=== PATIENT | male | born 1970 | race Caucasian/White ===

== ENCOUNTER 2016-12-28 21:40 | Emergency (ER) | payer SELFPAY ==
[2016-12-28] MEDS ORDERED: Lidocaine 2% EPI 1:200000 MPF* 20 ML VIAL ONE (22:04)
[2016-12-28] MEDS ORDERED: Lidocaine 2% EPI 1:200000 MPF* 20 ML VIAL INJ ONE (22:05)
--- NOTE | 2016-12-28 22:10 | ED ---
Head Injury - HPI Summary HPI Summary: 46M presents with laceration to left side of forehead today. He tripped and landed on some rocks. He had positive LOC. He denies any nausea or vomiting. Has moderate headache. He denies any dizziness or change in vision. Did not take anything for pain. He is not on blood thinners. Bleeding is controlled. last tetanus was 3 years ago. - History Of Current Complaint Chief Complaint: EDLacSutureRecheck Stated Complaint: LAC ON FOREHEAD Time Seen by Provider: 12/28/16 21:58 Pain Intensity: 0 - Allergies/Home Medications Allergies/Adverse Reactions: Allergies Allergy/AdvReac Type Severity Reaction Status Date / Time No Known Allergies Allergy Verified 12/28/16 21:45 PMH/Surg Hx/FS Hx/Imm Hx Endocrine/Hematology History: Denies: Hx Anticoagulant Therapy Cardiovascular History: Denies: Hx Pacemaker/ICD - Immunization History Date of Tetanus Vaccine: 2014 Infectious Disease History: No Infectious Disease History: Denies: Traveled Outside the [place] in Last 30 Days - Family History Known Family History: Positive: Cardiac Disease - Social History Alcohol Use: Rare Substance Use Type: Reports: None Smoking Status (MU): Current Every Day Smoker Review of Systems Negative: Fever Negative: Chest Pain Negative: Shortness Of Breath Positive: Other - laceration forehead Positive: Headache All Other Systems Reviewed And Are Negative: Yes Physical Exam Triage Information Reviewed: Yes Vital Signs On Initial Exam: Initial Vitals Temp Pulse Resp BP Pulse Ox 97.4 F 83 16 114/71 98 12/28/16 21:43 12/28/16 21:43 12/28/16 21:43 12/28/16 21:43 12/28/16 21:43 Vital Signs Reviewed: Yes Appearance: Positive: Well-Appearing Skin: Positive: Warm, Dry, Other - 2cm by 1/4cm laceration of left forehead Head/Face: Positive: Normal Head/Face Inspection, Other - no step off, racoon eyes cho sign Eyes: Positive: Normal, EOMI, GILLES, Conjunctiva Clear ENT: Positive: Normal ENT inspection, Pharynx normal, TMs normal Respiratory/Lung Sounds: Positive: Clear to Auscultation, Breath Sounds Present Cardiovascular: Positive: Normal, RRR Neurological: Positive: Sensory/Motor Intact, Alert, Oriented to Person Place, Time, CN Intact II-III - David Coma Scale Best Eye Response: 4 - Spontaneous Best Motor Response: 6 - Obeys Commands Best Verbal Response: 5 - Oriented Procedures - Laceration/Wound Repair 1 Location: face Description: Linear Anesthesia: Local, 1.0%, Epi Length, Depth and Shape: 2cm by 1/4cm Irrigated w/ Saline (ccs): 500 Laceration/Wound Explored: no foreign body removed Closure: Single Layer Suture Type: Prolene - 6-0 Number of Sutures: 3 Layer Closure?: No Sterile Dressing Applied?: No Diagnostics - Vital Signs Vital Signs Temp Pulse Resp BP Pulse Ox 12/28/16 21:43 97.4 F 83 16 114/71 98 - Laboratory Lab Statement: Any lab studies that have been ordered have been reviewed, and results considered in the medical decision making process. - CT brain CT Interpretation: No Acute Changes CT Interpretation Completed By: Radiologist Head Injury Course/Dx Course Of Treatment: 46M presents with laceration to left side of forehead today. He tripped and landed on some rocks. He had positive LOC. He denies any nausea or vomiting. Has moderate headache. He denies any dizziness or change in vision. Did not take anything for pain. He is not on blood thinners. Bleeding is controlled. last tetanus was 3 years ago. cleaned and placed [address] brain normal. told that likely has concussion due to LOC. patient understands and agrees with plan. - Diagnoses Differential Diagnosis/HQI/PQRI: Concussion With LOC, Intracranial Bleed, Laceration Provider Diagnoses: Head injury, Laceration Discharge - Discharge Plan Condition: Good Disposition: HOME Patient Education Materials: Head Injury (ED), Care For Your Stitches (ED) Referrals: [facility] [place] [facility]FERR[facility] [Outside] Additional Instructions: Take Tylenol or ibuprofen for pain Place ice on area Return to ED or urgent care in 5 days to have sutures removed Establish care with primary care physician Modify activities as tolerated with concussion present Return to ED if develop signs of infection such as fever, spreading redness, or pus or if vomit or severe headache or any new or worsening symptoms
[2016-12-28 23:20] VITALS: BP 101/68
--- NOTE | 2016-12-29 07:44 | RAD ---
INDICATION: Intracranial injury COMPARISON: None TECHNIQUE: Noncontrast axial source images were acquired from the skull base to the vertex. FINDINGS: Ventricles/sulci: The ventricles and cisterns are normal in size and configuration for age. Brain parenchyma: There is no focal parenchymal finding, evidence of intracranial mass, or intracranial mass effect. Intracranial hemorrhage:None. Extra-axial spaces: There are no abnormal extra axial fluid collections or evidence of extra-axial mass. Calvarium: There is no calvarial fracture or other calvarial abnormality. Scalp: There is no evidence of scalp or extracalvarial soft tissue abnormality. Paranasal sinuses/mastoid: The paranasal sinuses and mastoid air cells are clear. Other: None. IMPRESSION: NEGATIVE EXAMINATION
== END 2016-12-28 23:20 | disposition home or self-care (01) ==
LOC: ED 21:40
DX: S01.81XA Laceration without foreign body of other part of head, initial encounter (principal); S09.90XA Unspecified injury of head, initial encounter; W22.8XXA Striking against or struck by other objects, initial encounter; Y93.9 Activity, unspecified; Y92.9 Unspecified place or not applicable
CPT/HCPCS: 12011; 70450; 99282

== ENCOUNTER 2017-04-10 09:16 | Emergency (ER) | payer SELFPAY ==
[2017-04-10] MEDS ORDERED: Ibuprofen TAB* 800 MG PO ONE ×2 (12:48→12:50)
--- NOTE | 2017-04-10 12:52 | ED ---
Throat Pain/Nasal Congestion - HPI Summary HPI Summary: 46 male presents to ED with complaints of left lower dental pain and swelling that began last night and worsened this morning. States he has had an abscess in the past. Admits to multiple dental fractures and caries. No other complaints. Denies known fever, vomiting, trouble breathing or trouble swallowing. Does have pain with chewing and eating. Is able to drink fluids. No PMHx. Took excedrin [employer] which gave some relief from pain. - History of Current Complaint Chief Complaint: EDDentalPain Time Seen by Provider: 04/10/17 11:29 Hx Obtained From: Patient Onset/Duration: Sudden Onset, Lasting Hours, Still Present, Worse Since Severity: Moderate Cough: None - Allergies/Home Medications Allergies/Adverse Reactions: Allergies Allergy/AdvReac Type Severity Reaction Status Date / Time No Known Allergies Allergy Verified 04/10/17 09:25 PMH/Surg Hx/FS Hx/Imm Hx Endocrine/Hematology History: Denies: Hx Anticoagulant Therapy Cardiovascular History: Denies: Hx Pacemaker/ICD - Immunization History Date of Tetanus Vaccine: 2014 Immunizations Up to Date: Yes Infectious Disease History: Yes Infectious Disease History: Denies: Traveled Outside the [place] in Last 30 Days - Family History Known Family History: Positive: Cardiac Disease - Social History Alcohol Use: Rare Substance Use Type: Reports: None Smoking Status (MU): Current Every Day Smoker Review of Systems Constitutional: Negative Positive: Dental Pain - with swelling, left cheek Cardiovascular: Negative Respiratory: Negative Gastrointestinal: Negative Skin: Negative Neurological: Negative All Other Systems Reviewed And Are Negative: Yes Physical Exam Triage Information Reviewed: Yes Vital Signs On Initial Exam: Initial Vitals Temp Pulse Resp BP Pulse Ox 99.4 F 106 16 163/91 97 04/10/17 09:25 04/10/17 09:25 04/10/17 09:25 04/10/17 09:25 04/10/17 09:25 elevated BP noted, patient uncomfortable, encouraged follow up with PCP within 2 weeks. asymptomatic. tachycardia and low grade fever noted. given ibuprofen. Vital Signs Reviewed: Yes Appearance: Positive: Well-Appearing, Well-Nourished, Pain Distress - mild Skin: Positive: Warm, Skin Color Reflects Adequate Perfusion, Dry. Negative: Cold, Numb, Pale, Erythema @ Head/Face: Positive: Normal Head/Face Inspection - other than noted edema of left cheek as described below Eyes: Positive: Conjunctiva Clear ENT: Positive: Hearing grossly normal, Pharynx normal, Trismus - slight due to pain and swelling of left lower tooth/jaw, Uvula midline - no sign of peritonsillar abscess, airway patent, Other - edema of left cheek noted when compared to right, pain with palpation of left mandible, slightly firm area and possible deep abscess palpated, no fluctuance or erythema.. Negative: Pharyngeal erythema, Nasal congestion, Nasal drainage, Tonsillar swelling, Tonsillar exudate Dental: Positive: Gross Decay/Caries @, Dental Fracture @, Abscess @ - left mandible. Negative: Percussion Tenderness @, Cellulitis @, Cervical Lymphadenopathy Neck: Positive: Supple, Nontender, No Lymphadenopathy Respiratory/Lung Sounds: Positive: Clear to Auscultation, Breath Sounds Present. Negative: Rales, Rhonchi, Wheezes Cardiovascular: Positive: Normal, RRR, Pulses are Symmetrical in both Upper and Lower Extremities. Negative: Murmur, Rub Musculoskeletal: Positive: Normal, Strength/ROM Intact Neurological: Positive: Normal, Sensory/Motor Intact, Alert, Oriented to Person Place, Time Diagnostics - Vital Signs Vital Signs Temp Pulse Resp BP Pulse Ox 04/10/17 11:17 100.4 F 116 17 160/115 97 04/10/17 09:25 99.4 F 106 16 163/91 97 - Laboratory Lab Statement: Any lab studies that have been ordered have been reviewed, and results considered in the medical decision making process. EENT Course/Dx - Course Course Of Treatment: appears to be suffering from dental abscess. will treat with amoxicillin and pain management. encouraged cool compresses and ibuprofen for swelling. increase fluids. aware of worsening signs and symptoms to watch out for. follow up with dentist within 1 week. salt water swishes. return if any new or worsening symptoms. no superficial palpable abscess or cellulitis appreciated requiring further management at this time. topical OTC medications also suggested. no other concerns or etiology at this time. patient stable slight tachycarida, low grade fever 99-100F, and elevated BP noted. follow up pcp for BP. given ibuprofen while in ED for fever. encouraged importance of starting antibiotics immediately and finishing entire dose. - Differential Diagnoses Differential Diagnoses: Dental Abscess, Dental Caries, Fractured Tooth - Diagnoses Provider Diagnoses: Toothache, Dental abscess Discharge - Discharge Plan Condition: Stable Disposition: HOME Prescriptions: Amoxicillin PO (*) [Amoxicillin 875 MG (*)] 875 mg PO BID #20 tab HYDROcodone/ACETAMIN 5-325 MG* [[place] 5-325 TAB*] 1 tab PO Q6H PRN #6 tab MDD 2 PRN Reason: Pain Ibuprofen TAB* [Motrin TAB* 600 MG] 600 mg PO Q6H PRN #30 tab PRN Reason: Pain Patient Education Materials: Dental Abscess (ED), Toothache (ED) Referrals: No Primary Care Phys,NOPCP [Primary Care Provider] - [facility] [place] [facility] [Outside] Additional Instructions: Take prescribed medication as directed for fever and pain. Antibiotic to fight infection. Do not skip a dose and take until entire dose is completed. Salt water swishes. Good oral hygiene. Increase fluid intake. Follow up with dentist this week. Follow up with PCP to recheck symptoms and blood pressure re-evaluated as it was high today, within 2 weeks. Any new or worsening signs/symptoms please seek medical attention promptly and return to ED, as discussed.
[2017-04-10 13:04] VITALS: BP 156/110
--- NOTE | 2017-04-11 15:50 | UC ---
- Progress Note Progress Note: Pt called requesting urgent Rx labs transferred to [facility] with urgent RX I cancelled hydrocodone at [facility] and resent to [facility] Other rx transferred Course/Dx - Course Course Of Treatment: appears to be suffering from dental abscess. will treat with amoxicillin and pain management. encouraged cool compresses and ibuprofen for swelling. increase fluids. aware of worsening signs and symptoms to watch out for. follow up with dentist within 1 week. salt water swishes. return if any new or worsening symptoms. no superficial palpable abscess or cellulitis appreciated requiring further management at this time. topical OTC medications also suggested. no other concerns or etiology at this time. patient stable slight tachycarida, low grade fever 99-100F, and elevated BP noted. follow up pcp for BP. given ibuprofen while in ED for fever. encouraged importance of starting antibiotics immediately and finishing entire dose. - Diagnoses Provider Diagnoses: Toothache, Dental abscess
== END 2017-04-10 12:57 | disposition home or self-care (01) ==
LOC: ED 09:16
DX: K04.7 Periapical abscess without sinus (principal); F17.200 Nicotine dependence, unspecified, uncomplicated
CPT/HCPCS: 99281; A9270-GY

== ENCOUNTER 2018-04-07 11:44 | Inpatient (IN) | payer MEDICAID ==
[2018-04-07 12:58] LABS: Hematocrit 40 % (42-52); Hemoglobin 13.4 g/dl (14.0-18.0); Mean Corpuscular HGB Conc 34 g/dl (31-36); Mean Corpuscular Hemoglobin 31 pg (27-31); Mean Corpuscular Volume 91 fL (80-94); Mean Platelet Volume 8.5 fL (7.4-10.4); Platelet Count 323 10^3/ul (150-450); Red Blood Count 4.41 10^6/ul (4.00-5.40); Red Cell Distribution Width 14 % (10.5-15); White Blood Count 14.8 10^3/ul (3.5-10.8)
--- NOTE | 2018-04-07 13:09 | ED ---
Abdominal Pain/Male - HPI Summary HPI Summary: A 47 y/o M presents to ED with c/o suprapubic abd pain described as cramping and sharp onset 8-9 days ago. Pain severity 10. Associated sx: mild dysuria, dehydration, subjective fever, chills. Denies: urinary retention. Last BM was this AM. No PMHx, prev facial surgery. Smoker: less than 1ppd. ETOH. Recreation drugs: marijuana. He does not use home O2. Pt has been out of town for a . - History of Current Complaint Chief Complaint: EDAbdPain Stated Complaint: ABD PAIN Time Seen by Provider: 04/07/18 13:02 Hx Obtained From: Patient Onset/Duration: Lasting Days, Still Present Timing: Constant Severity Initially: Moderate Severity Currently: Severe Pain Intensity: 9 Pain Scale Used: 0-10 Numeric Location: Suprapubic Character: Sharp, Cramping Alleviating Factor(s): Other: - warm water Associated Signs And Symptoms: Positive: Fever, Urinary Symptoms - dysuria, Other - pos: chills, dehydration - Allergies/Home Medications Allergies/Adverse Reactions: Allergies Allergy/AdvReac Type Severity Reaction Status Date / Time No Known Allergies Allergy Verified 04/07/18 11:48 Home Medications: Home Medications Omeprazole CAP* [Prilosec CAP* 20 MG] 20 mg PO SEE INSTRUCTIONS PRN 04/07/18 [ History Confirmed 04/07/18] PMH/Surg Hx/FS Hx/Imm Hx Previously Healthy: Yes Endocrine/Hematology History: Denies: Hx Anticoagulant Therapy Cardiovascular History: Denies: Hx Pacemaker/ICD Sensory History: Denies: Hx Legally Blind, Hx Deafness Neurological History: Denies: Hx Dementia - Immunization History Date of Tetanus Vaccine: 2014 Infectious Disease History: No Infectious Disease History: Denies: Traveled Outside the [place] in Last 30 Days - Family History Known Family History: Positive: Cardiac Disease - Social History Occupation: Unemployed Lives: With Family Alcohol Use: Daily Hx Substance Use: Yes Substance Use Type: Reports: Marijuana Hx Tobacco Use: Yes Smoking Status (MU): Light Every Day Tobacco Smoker Review of Systems Positive: Fever - subjective, Chills, Other - pos: dehydration Positive: Abdominal Pain Positive: dysuria All Other Systems Reviewed And Are Negative: Yes Physical Exam - Summary Physical Exam Summary: GENERAL: Patient is a well-developed and nourished M who is lying comfortable in the stretcher. Patient is not in any acute respiratory distress. HEAD AND FACE: Normocephalic EYES: PERRLA, EOMI x 2. EARS: Hearing grossly intact. MOUTH: Oropharynx within normal limits. NECK: Supple, trachea is midline, no adenopathy, no JVD, no carotid bruit. CHEST: Symmetric, no tenderness at palpation LUNGS: Wheezes. CVS: Regular rate and rhythm, S1 and S2 present, no murmurs or gallops appreciated. ABDOMEN: Soft. Voluntary guarding in suprapubic area. Bowel sounds are normal. No abdominal abnormal pulsations. EXTREMITIES: Full ROM in all major joints, no edema, no cyanosis or clubbing. NEURO: Alert and oriented x 3. No acute neurological deficits. Speech is normal and follows commands. SKIN: Dry and warm Triage Information Reviewed: Yes Vital Signs On Initial Exam: Initial Vitals Temp Pulse Resp BP Pulse Ox 98.2 F 100 18 139/102 97 04/07/18 11:48 04/07/18 11:48 04/07/18 11:48 04/07/18 11:48 04/07/18 11:48 Vital Signs Reviewed: Yes Diagnostics - Vital Signs Vital Signs Temp Pulse Resp BP Pulse Ox 04/07/18 11:48 98.2 F 100 18 139/102 97 - Laboratory Lab Results: Lab Results 04/07/18 Range/Units 12:32 WBC 14.8 H (3.5-10.8) 10^3/ul RBC 4.41 (4.00-5.40) 10^6/ul Hgb 13.4 L (14.0-18.0) g/dl Hct 40 L (42-52) % MCV 91 (80-94) fL MCH 31 (27-31) pg MCHC 34 (31-36) g/dl RDW 14 (10.5-15) % Plt Count 323 (150-450) 10^3/ul MPV 8.5 (7.4-10.4) fL Neut % (Auto) Pending Lymph % (Auto) Pending [place] % (Auto) Pending Eos % (Auto) Pending Baso % (Auto) Pending Absolute Neuts (auto) Pending Absolute Lymphs (auto) Pending Absolute Monos (auto) Pending Absolute Eos (auto) Pending Absolute Basos (auto) Pending Absolute Nucleated RBC Pending Nucleated RBC % Pending Result Diagrams: 04/07/18 12:32 04/07/18 12:32 Lab Statement: Any lab studies that have been ordered have been reviewed, and results considered in the medical decision making process. - CT Abdomen/pelvis CT Interpretation Completed By: Radiologist Summary of CT Findings: CT findings are consistent with a right of midline peritoneal abscess as described above. There is wall thickening of the terminal ileum and the sigmoid colon. The appendix is not. discretely identified and the expected location of the appendix is deranged by. inflammatory change and abscess formation. Differential diagnosis includes appendiceal. abscess with adjacent inflammatory change of the terminal ileum and sigmoid colon. An. alternative diagnosis is inflammatory bowel disease ( e.g. Crohn's disease) with abscess. formation exhibiting "skip lesions". ED provider has reviewed this imaging report. Abdominal Pain Fem Course/Dx - Course Course Of Treatment: Pt is a 47 y/o M presenting with suprapubic abd pain described as cramping and sharp onset 8-9 days ago; and mild dysuria. Workup is remarkable. Abdomen/pelvis CT impression: CT findings are consistent with a right of midline peritoneal abscess as described above. There is wall thickening of the terminal ileum and the sigmoid colon. The appendix is not. discretely identified and the expected location of the appendix is deranged by. inflammatory change and abscess formation. Differential diagnosis includes appendiceal. abscess with adjacent inflammatory change of the terminal ileum and sigmoid colon. An. alternative diagnosis is inflammatory bowel disease ( e.g. Crohn's disease) with abscess. formation exhibiting "skip lesions". Lab results obtained. High WBC of 14.8. In the ED course the patient was given Toradol, Zofran and sodium chloride IV. After discussing the case with Dr. Clarke, surgery, she saw the patient in the ED and recommends admission to medicine. The patient will be admitted. Dx: peritoneal abscess. Case discussed with hospitalist. I discussed results with patient. The patient agrees with this plan. - Diagnoses Provider Diagnoses: Peritoneal abscess - Provider Notifications Discussed Care Of Patient With: Maricel Clarke Time Discussed With Above Provider: 17:15 Instructed by Provider To: MD Will See In ED - At 18:05, after seeing the patient in the ED, Dr. Clarke reccomends admission to medicine. Discharge - Sign-Out/Discharge Documenting (check all that apply): Patient Departure - Admit - Discharge Plan Condition: Stable Disposition: ADMITTED TO [facility] Referrals: No Primary Care Phys,NOPCP [Primary Care Provider] - - Billing Disposition and Condition Condition: STABLE Disposition: Admitted to [facility] - Attestation Statements Document Initiated by Scribe: Yes Documenting Scribe: Nicky Avendaño Provider For Whom Scribe is Documenting (Include Credential): Dr. En Lockett MD Scribe Attestation: INicky, scribed for Dr. En Lockett MD on 04/07/18 at 1916. Scribe Documentation Reviewed: Yes Provider Attestation: The documentation as recorded by the Nicky fleming accurately reflects the service I personally performed and the decisions made by me, Dr. En Lockett MD Status of Scribe Document: Viewed Consult Consult: At 18:15, Case discussed with Dr. Christensen, hospitalist, who will accept the patient for admission.
[2018-04-07 13:15] LABS: Albumin 3.5 g/dL (3.2-5.2); C Reactive Protein 203.95 mg/L (<8.01); Calcium 9.4 mg/dL (8.6-10.3); EGFR Non-African American 104.2 (>60); Globulin 3.6 g/dL (2-4); Total Bilirubin 0.7 mg/dL (0.2-1.0); Total Protein 7.1 g/dL (6.4-8.9)
[2018-04-07] MEDS ORDERED: Ondansetron INJ* 2 MG/ML VIAL IV ONE (13:16)
[2018-04-07] MEDS ORDERED: Ketorolac INJ* 30 MG/ML 1 ML VIAL IV PUSH ONE (13:16)
[2018-04-07] MEDS ORDERED: NS 0.9% 1000 ML* 1,000 ML IV ONE (13:16)
[2018-04-07 13:37] LABS: ABS Basophils 0.1 10^3/ul (0-0.2); ABS Eosinophils 0.1 10^3/ul (0-0.6); ABS Monocytes 1.7 10^3/ul (0-0.8); ABS Neutrophils 11.9 10^3/ul (1.5-7.7); ABS Nucleated RBC 0 10^3/ul; Eosinophil % 0.8 %; Lymphocyte % 6.7 %; Nucleated Red Blood Cells % 0
[2018-04-07] MEDS ORDERED: Iohexol 300* (CONTRAST) 10 ML SDV IV ONE (14:36)
[2018-04-07] MEDS ORDERED: Ciprofloxacin 400MG IVPREMIX(* 400 MG/200 ML BAG IVPB ONE (17:12)
[2018-04-07] MEDS ORDERED: metroNIDAZOLE IV 500 MG/100ML* 500 MG/100 ML BAG IVPB ONE (17:13)
[2018-04-07] MEDS ORDERED: Ondansetron INJ* 2 MG/ML VIAL IV PRN (20:03)
[2018-04-07] MEDS ORDERED: Mouth Piece, Nicotine* 1 EACH CARTRIDGE INH PRN (20:09)
[2018-04-07] MEDS ORDERED: Nicotine PATCH 21 MG/24 HR* PATCH TRANSDERM SCH (21:00)
[2018-04-07] MEDS: Morphine VIAL* 4 MG/ML VIAL (1 ml vial) IV PRN (21:38)
[2018-04-07] MEDS: NS 0.9% 1000 ML* 1,000 ML IV SCH (21:40)
--- NOTE | 2018-04-07 22:06 | HP ---
HOSPITAL MEDICINE HISTORY AND PHYSICAL: DATE OF ADMISSION: 04/07/18 PRIMARY CARE PHYSICIAN: None. ATTENDING PHYSICIAN: Dr. Samantha Menjivar* (dictation provided by Angely Martinez NP) . CHIEF COMPLAINT: Abdominal pain. HISTORY OF PRESENT ILLNESS: Mr. Milton is a 47-year-old male with no known past medical history who presents today to the hospital with concern for lower abdominal pain. Mr. Milton states that his pain began 8 days ago. It is in his lower abdomen. He states that it is worse with eating and that every time he eats anything, he is doubled over in pain. He reports that it is a little worse with urination. He was concerned that perhaps he had a urinary tract infection and therefore has been taking cranberry and an [id number] analgesic for UTI. Despite this, he did not improve and therefore, he decided to come to the emergency room for evaluation. He has had shakes at times, but no fever as he did not check his temperature. He reports liquid bowel movements earlier in the week, but now he has had some formed bowel movements. He is continuing to pass gas. He reports passing urine, but that it is very dark and cloudy. He has never had a colonoscopy before. He denies any other complaints including chest pain or shortness of breath. He has had no vomiting. In the emergency room, Mr. Milton had a CT of the abdomen, which showed a midline peritoneal abscess that was 4.7 x 8.5 cm. It is associated with thickening of the terminal ileum and the sigmoid colon. For this reason, Surgery was called regarding consultation. They have indicated that no surgery is indicated at this point and that likely plan will be for antibiotics and CT- guided drainage placement. PAST MEDICAL HISTORY: None. MEDICATIONS: None. ALLERGIES: None. FAMILY HISTORY: The patient reports that all the male members of his family have cancer. His father had lung cancer. He knows that some members have had throat cancer. All the female members of his family have reportedly had diabetes. SOCIAL HISTORY: The patient smokes about 5 packs of cigarettes per week. He drinks vodka on a daily basis. He reports he has never had any withdrawal symptoms when not drinking. He denies any drug use. He is not able to name a healthcare proxy. REVIEW OF SYSTEMS: A 14-point review of systems was completed with Mr. Miltno and all those not mentioned above were negative. PHYSICAL EXAMINATION GENERAL: Mr. Milton is sitting on the bed. He is in no acute distress. VITAL SIGNS: Temperature 98.2, pulse rate 92, respiratory rate 18, O2 saturation 97% on room air, blood pressure 145/100. LUNGS: Clear to auscultation bilaterally with no accessory muscle use and good aeration. HEART: S1, S2. No murmur, rub, or gallop and regular. ABDOMEN: Soft. There is tenderness in the low to mid right quadrant. Bowel sounds are positive. There is no rebound or guarding. EXTREMITIES: No cyanosis or edema. NEURO: He is alert. He is oriented x3. He moves all extremities equally. There is no facial asymmetry or focal weakness. Extraocular movements are intact. SKIN: Intact. LABORATORY DATA/DIAGNOSTIC STUDIES: Sodium 132, potassium 4.0, chloride 93, serum bicarbonate 29, BUN 15, creatinine 0.79, glucose 109. CRP is 203.95. WBC 14.8, hemoglobin 13.4, hematocrit 40, platelet count 323. The abdomen and pelvis CT is read as follows: "CT findings are consistent with a right midline peritoneal abscess as described above. There is wall thickening of the terminal ileum and the sigmoid colon. The appendix is not discretely identified and the expected location of the appendix is deranged by inflammatory change and abscess formation. Differential diagnosis includes appendiceal abscess with adjacent inflammatory change of the terminal ileum and sigmoid colon. An alternative diagnosis is inflammatory bowel disease, e.g., Crohn's disease with abscess formation exhibiting "skip lesions." ASSESSMENT AND PLAN: Mr. Milton is a 47-year-old male with no known past medical history, who is a smoker and drinks alcohol on a daily basis, who presents today to the hospital with concern for lower abdominal pain found to have an abdominal abscess of unclear etiology. Our plans are for inpatient admission with expected length of stay to be greater than 2 days for the followin. Abdominal abscess. Appreciate the consultation from Dr. Clarke from [facility]. She indicates that no surgical intervention is indicated at this time and that she would recommend IR to place a drain via CT or ultrasound guided assist. In the meantime, the patient will have Cipro and Flagyl and we will adjust antibiotics appropriately based on culture results. I have also sent for cytology from the fluid as well. The patient just meets sepsis criteria today with a heart rate of 100 and leukocytosis. Blood cultures have been ordered. His lactic acid is normal. 2. Nicotine use. The patient will have nicotine replacement available p.r.n. and smoking cessation counseling was provided. 3. Alcohol use. The patient reports daily drinking, but never having any symptoms of alcohol withdrawal. We will monitor him closely and if he does develop symptoms, we can consider adding on a WAM protocol. 4. Code status is full code. 5. DVT prophylaxis with early mobility. 6. Disposition to the surgical floor. TIME SPENT: Approximately 60 minutes were spent on the admission of this patient, more than half of the time was spent with the patient at the bedside reviewing the events leading up to this hospitalization, performing the physical examination, and reviewing my plan of care. ANGELY MARTINEZ NP [id number]/CPS #: [id number] APRIL
--- NOTE | 2018-04-07 22:39 | CONS ---
CONSULTATION HISTORY AND PHYSICAL: DATE OF CONSULTATION: 04/07/18 SERVICE: General Surgery. ATTENDING SURGEON: Maricel Clarke MD REASON FOR CONSULTATION: Intraabdominal abscess on CT scan. HISTORY OF PRESENT ILLNESS: Mr. Milton is a 47-year-old gentleman with history of smoking, who presented to the emergency room with complaints of 8 days of suprapubic abdominal pain. The patient said that he was in his normal state of health until approximately 8 days ago when he said that he started to have this strange suprapubic pain and some dysuria. He thought this was from a urinary tract infection so he tried to medicate himself with xyvk-nwz-[id number] medications as well as cranberry juice, however, the pain persisted. He was able to maintain a normal appetite. He had no nausea, vomiting at this time, however, about 2 to 3 days into the pain, he started developing abdominal pain after eating. He also said that he had significant amount of diarrhea during this time. In only the past couple of days, has his stool become a little bit more normal and hard. He says that the pain eventually became long enough in duration that he presented to the emergency room for evaluation. He denied having any fevers or chills. He has no other complaints. He has no history of Crohn's disease, ulcerative colitis in his family. No history of colon cancer in the family and he has never had a colonoscopy. He denies having any blood in his stools. PAST MEDICAL HISTORY: None. PAST SURGICAL HISTORY: He has had facial plastic surgery, and no abdominal surgery. MEDICATIONS: None. ALLERGIES: No known drug allergies. FAMILY HISTORY: Father recently of lung cancer. SOCIAL HISTORY: The patient is a current everyday smoker. He drinks alcohol on a regular basis, but has not had anything recently since the abdominal started. He is not working. He lives with a friend. REVIEW OF SYSTEMS: Review of systems negative except for abdominal pain and diarrhea. PHYSICAL EXAMINATION: Vital Signs: Temperature is 98.2, pulse is 85, respiratory rate is 18, O2 sat is 96% on room air, blood pressure is 141/97. HEENT: Normocephalic, atraumatic. Respiratory: Clear to auscultation bilaterally. Cardiovascular: Regular rate and rhythm. Abdomen: Soft, tender in the suprapubic area and tender in the right lower quadrant with some rebound in the right lower quadrant. Extremities: No edema. LABORATORY VALUES: White blood cell count is 14.8, hemoglobin is 13.4, hematocrit is 40, platelets are 323. Sodium is 132, potassium is 4, chloride is 93, BUN 15, creatinine is 0.79, glucose is 109. Lactic acid is 0.7, alkaline phosphatase is 152, CRP is 203. IMAGING: CT abdomen and pelvis on 04/07/18 shows wall thickening of the terminal ileum leading into the base of the cecum, measuring 7 mm in thickness. There is thickening of the wall at the base of the cecum. There is infiltration of the peritoneal fat surrounding the base of the cecum. The appendix was diffusely identified. More distally, the ascending, transverse, and descending colon were grossly normal. The sigmoid colon was incompletely evaluated as oral contrast did not progress that far. There appears to be a segment of wall thickening of the sigmoid colon measuring up to 11 mm in thickness. Situated to the right midline peritoneal cavity between the base of the cecum and the sigmoid is a multilobe fluid density collection with wall enhancement consistent with an abscess. In axial plane, the largest portion of the abscess measures 4.7 x 8.5 cm and the abscess measures 5.5 cm in the greatest cephalad-caudal dimension. There is a small fluid collection extending toward the midline more inferiorly behind, between the sigmoid colon and the urinary bladder measuring up to 2.9 cm. There is no gross retroperitoneal or mesenteric lymphadenopathy. The CT scan findings are consistent with right of midline peritoneal abscess. As described above, there is wall thickening of the terminal ileum and sigmoid colon. Appendix is not clearly identified and the expected location of the appendix was deranged by inflammatory changes and abscess formation. Differential diagnosis includes appendiceal abscess with adjacent inflammatory changes of terminal ileum and sigmoid colon. Alternative diagnosis is inflammatory bowel disease, i.e. Crohn' s disease with abscess formation. ASSESSMENT AND PLAN: Mr. Milton is a 47-year-old gentleman with a history of abdominal pain for 8 days. He denies having nausea or vomiting. He found to have white blood cell count of 14.9, elevated CRP and the CT scan significant for intraabdominal abscess of unclear origin. The differential could include a perforated appendicitis, however, such a large abscess is fairly unusual for perforated appendicitis. Given the findings of significant inflammation and thickening of the terminal ileum as well as sigmoid colon, this also may represent a perforated Crohn's disease or perforated diverticulitis. The patient is currently comfortable. He is afebrile. His pain is fairly minimal. He does require admission, IV antibiotics and CT or ultrasound guided drainage of the intraabdominal abscess. A work up will need to be done to ascertain the etiology of this perforation and this will require a GI consultation and further workup with the colonoscopy and possibly repeat imaging after drainage of the abscesses is resolved. I have discussed this case with the emergency room physician and recommended that the patient be admitted to the hospitalist team for the IV antibiotics, drainage of the abscess to be performed by Radiology as well as a gastroenterology workup. We will continue to follow the patient. A total of 45 minutes was spent in coordination of care of this patient, including speaking to consultants, reviewing patient records and discussion with patient. [id number]/CPS #: [id number] APRIL
[2018-04-07] MEDS: Nicotine Inhaler* 10 MG AMP INH PRN (22:53)
[2018-04-07] MEDS: Nicotine Patch Removal NOTE FOLLOW UP SCH (23:09)
[2018-04-08] MEDS: metroNIDAZOLE IV 500 MG/100ML* 500 MG/100 ML BAG IVPB SCH ×4 (01:26→21:56)
[2018-04-08] MEDS: Morphine VIAL* 4 MG/ML VIAL (1 ml vial) IV PRN ×5 (02:54→23:42)
[2018-04-08 04:38] LABS: ABS Basophils 0.1 10^3/ul (0-0.2); ABS Eosinophils 0.1 10^3/ul (0-0.6); ABS Monocytes 1.3 10^3/ul (0-0.8); ABS Neutrophils 10.7 10^3/ul (1.5-7.7); ABS Nucleated RBC 0 10^3/ul; Eosinophil % 1.1 %; Hematocrit 37 % (42-52); Hemoglobin 12.3 g/dl (14.0-18.0); Lymphocyte % 7.7 %; Mean Corpuscular HGB Conc 33 g/dl (31-36); Mean Corpuscular Hemoglobin 30 pg (27-31); Mean Corpuscular Volume 91 fL (80-94); Mean Platelet Volume 8.2 fL (7.4-10.4); Nucleated Red Blood Cells % 0; Platelet Count 316 10^3/ul (150-450); Red Cell Distribution Width 15 % (10.5-15); White Blood Count 13.2 10^3/ul (3.5-10.8)
[2018-04-08 04:43] LABS: INR 1.37 (0.77-1.02)
[2018-04-08] MEDS: Acetaminophen TAB* 325 MG PO PRN ×3 (08:21→23:41)
[2018-04-08] MEDS: Nicotine PATCH 21 MG/24 HR* PATCH TRANSDERM SCH (08:22)
[2018-04-08] MEDS: Nicotine Inhaler* 10 MG AMP INH PRN ×2 (08:22→22:01)
[2018-04-08] MEDS: Ciprofloxacin 400MG IVPREMIX(* 400 MG/200 ML BAG IVPB SCH ×2 (08:28→19:55)
--- NOTE | 2018-04-08 09:33 | PN ---
Progress Note - Progress Note Date of Service: 04/08/18 Note: Surgery Progress Note S: Patient feels better today with pain medications. No new complaints. Had a fever last night. Objective: Vital Signs: Temp Pulse Resp BP Pulse Ox 97.9 F 93 18 122/81 96 04/08/18 07:30 04/08/18 07:30 04/08/18 08:21 04/08/18 07:30 04/08/18 07:30 Vital Signs: Temp Pulse Resp BP Pulse Ox 97.9 F 93 18 122/81 96 04/08/18 07:30 04/08/18 07:30 04/08/18 08:21 04/08/18 07:30 04/08/18 07:30 Laboratory Last Values WBC 13.2 10^3/ul (3.5-10.8) H 04/08/18 04:31 RBC 4.10 10^6/ul (4.00-5.40) 04/08/18 04:31 Hgb 12.3 g/dl (14.0-18.0) L 04/08/18 04:31 Hct 37 % (42-52) L 04/08/18 04:31 MCV 91 fL (80-94) 04/08/18 04:31 MCH 30 pg (27-31) 04/08/18 04:31 MCHC 33 g/dl (31-36) 04/08/18 04:31 RDW 15 % (10.5-15) 04/08/18 04:31 Plt Count 316 10^3/ul (150-450) 04/08/18 04:31 MPV 8.2 fL (7.4-10.4) 04/08/18 04:31 Neut % (Auto) 81.2 % 04/08/18 04:31 Lymph % (Auto) 7.7 % 04/08/18 04:31 [place] % (Auto) 9.6 % 04/08/18 04:31 Eos % (Auto) 1.1 % 04/08/18 04:31 Baso % (Auto) 0.4 % 04/08/18 04:31 Absolute Neuts (auto) 10.7 10^3/ul (1.5-7.7) H 04/08/18 04:31 Absolute Lymphs (auto) 1.0 10^3/ul (1.0-4.8) 04/08/18 04:31 Absolute Monos (auto) 1.3 10^3/ul (0-0.8) H 04/08/18 04:31 Absolute Eos (auto) 0.1 10^3/ul (0-0.6) 04/08/18 04:31 Absolute Basos (auto) 0.1 10^3/ul (0-0.2) 04/08/18 04:31 Absolute Nucleated RBC 0 10^3/ul 04/08/18 04:31 Nucleated RBC % 0 04/08/18 04:31 INR (Anticoag Therapy) 1.37 (0.77-1.02) H 04/08/18 04:31 Sodium 132 mmol/L (135-145) L 04/07/18 12:32 Potassium 4.0 mmol/L (3.5-5.0) 04/07/18 12:32 Chloride 93 mmol/L (101-111) L 04/07/18 12:32 Carbon Dioxide 29 mmol/L (22-32) 04/07/18 12:32 Anion Gap 10 mmol/L (2-11) 04/07/18 12:32 BUN 15 mg/dL (6-24) 04/07/18 12:32 Creatinine 0.79 mg/dL (0.67-1.17) 04/07/18 12:32 Est GFR ( Amer) 126.1 (>60) 04/07/18 12:32 Est GFR (Non-Af Amer) 104.2 (>60) 04/07/18 12:32 BUN/Creatinine Ratio 19.0 (8-20) 04/07/18 12:32 Glucose 109 mg/dL (70-100) H 04/07/18 12:32 Lactic Acid 0.7 mmol/L (0.5-2.0) 04/07/18 12:32 Calcium 9.4 mg/dL (8.6-10.3) 04/07/18 12:32 Total Bilirubin 0.70 mg/dL (0.2-1.0) 04/07/18 12:32 AST 20 U/L (13-39) 04/07/18 12:32 ALT 20 U/L (7-52) 04/07/18 12:32 Alkaline Phosphatase 152 U/L (34-104) H 04/07/18 12:32 C-Reactive Protein 203.95 mg/L (<8.01) H 04/07/18 12:32 Total Protein 7.1 g/dL (6.4-8.9) 04/07/18 12:32 Albumin 3.5 g/dL (3.2-5.2) 04/07/18 12:32 Globulin 3.6 g/dL (2-4) 04/07/18 12:32 Albumin/Globulin Ratio 1.0 (1-3) 04/07/18 12:32 Lipase 13 U/L (11.0-82.0) 04/07/18 12:32 Intake & Output 04/07/18 04/08/18 04/08/18 22:59 06:59 14:59 Intake Total 1300 0 Output Total 400 400 200 Balance 900 -400 -200 Weight 130 lb 130 lb Intake: IV Fluids 1000 IVPB 300 Oral 0 Output: Urine 400 400 200 Other: # Bowel Movements 0 Abx: cipro/flagyl Physical exam: abd distended mildly, non tender A/P: 47 M with intraabdominal abscess, unclear etiology. - Continue IV abx - CT guided drainage of intraabdominal abscess today with radiology. FU cultures - Recommend GI consultation
[2018-04-08] MEDS ORDERED: fentaNYL* 50 MCG/ML 2 ML VIAL (100 MCG VIAL) ONE (10:54)
[2018-04-08] MEDS: NS 0.9% 1000 ML* 1,000 ML IV SCH (16:17)
--- NOTE | 2018-04-08 17:41 | PN ---
Subjective Date of Service: 04/08/18 Interval History: I saw Mr. Milton after he returned to short stay from . He has a drain in his RLQ and is feeling "sore" but otherwise okay. No fevers, nausea, diarrhea, vomiting, constipation. He is interested to understand why this happened to him. Objective Active Medications: Acetaminophen (Tylenol Tab*) 650 mg PO Q6H PRN PRN Reason: PAIN Last Admin: 04/08/18 15:52 Dose: 650 mg Device (Nicotine Mouth Piece*) 1 each INH Q2H PRN PRN Reason: CRAVINGS Last Admin: 04/07/18 22:53 Dose: 1 each Ciprofloxacin/Dextrose (Cipro 400 Mg Ivpremix(*)) 400 mg in 200 mls @ 200 mls/ hr IVPB Q12H [facility] Last Admin: 04/08/18 08:28 Dose: 200 mls/hr Metronidazole/Sodium Chloride (Flagyl 500 Mg Ivpb*) 500 mg in 100 mls @ 100 mls /hr IVPB Q8H [facility] Last Admin: 04/08/18 12:23 Dose: 100 mls/hr Sodium Chloride (Ns 0.9% 1000 Ml*) 1,000 mls @ 75 mls/hr IV PER RATE [facility] Last Admin: 04/08/18 16:17 Dose: 75 mls/hr Morphine Sulfate (Morphine Vial*) 5 mg IV Q3H PRN PRN Reason: PAIN Last Admin: 04/08/18 15:53 Dose: 5 mg Nicotine (Nicotine Inhaler*) 10 mg INH Q2H PRN PRN Reason: CRAVING Last Admin: 04/08/18 08:22 Dose: 10 mg Nicotine (Nicotine Patch 21 Mg/24 Hr*) 1 patch TRANSDERM 0900 [facility] Last Admin: 04/08/18 08:22 Dose: Not Given Ondansetron HCl (Zofran Inj*) 4 mg IV Q6H PRN PRN Reason: NAUSEA Pharmacy Profile Note (Nicotine Patch Removal Note*) 1 note FOLLOW UP 2100 [facility] Last Admin: 04/07/18 23:09 Dose: Not Given Vital Signs - 8 hr 04/08/18 04/08/18 15:43 15:53 Temperature 99.2 F Pulse Rate 94 Respiratory 18 18 Rate Blood Pressure 132/80 (mmHg) O2 Sat by Pulse 96 Oximetry Oxygen Devices in Use Now: None Appearance: alert, nontoxic well appearing Eyes: No Scleral Icterus Ears/Nose/Mouth/Throat: NL Teeth, Lips, Gums Neck: NL Appearance and Movements; NL JVP Respiratory: Symmetrical Chest Expansion and Respiratory Effort Cardiovascular: NL Sounds; No Murmurs; No JVD, RRR Abdominal: - - drain in RLQ draining serosanguinous fluid Lymphatic: No Cervical Adenopathy Extremities: No Edema Skin: No Rash or Ulcers Neurological: Alert and Oriented x 3 Result Diagrams: 04/08/18 04:31 04/07/18 12:32 Additional Lab and Data: Lab Results 04/07/18 Range/Units 12:32 WBC 14.8 H (3.5-10.8) 10^3/ul RBC 4.41 (4.00-5.40) 10^6/ul Hgb 13.4 L (14.0-18.0) g/dl Hct 40 L (42-52) % MCV 91 (80-94) fL MCH 31 (27-31) pg MCHC 34 (31-36) g/dl RDW 14 (10.5-15) % Plt Count 323 (150-450) 10^3/ul MPV 8.5 (7.4-10.4) fL Neut % (Auto) Pending Lymph % (Auto) Pending [place] % (Auto) Pending Eos % (Auto) Pending Baso % (Auto) Pending Absolute Neuts (auto) Pending Absolute Lymphs (auto) Pending Absolute Monos (auto) Pending Absolute Eos (auto) Pending Absolute Basos (auto) Pending Absolute Nucleated RBC Pending Nucleated RBC % Pending Microbiology and Other Data: Microbiology 04/08/18 11:30 Gram Stain - Final Misc Fluid (See Comment) - Abscess Skin and Soft Tissue MRSA/MSSA (PCR - Final Mrsa Negative S.aureus Negative Assess/Plan/Problems-Billing Assessment: This is a 47 year old man with no medical history who presented with 8-9 days of worsening abdominal pain and was found to have an intraabdominal abscess - Patient Problems (1) Intra-abdominal abscess Current Visit: Yes Status: Acute Code(s): K65.1 - PERITONEAL ABSCESS SNOMED Code(s): 75826327 Comment: s/p drain today ; cultures pending etiology unclear and surgery recommends consulting GI will discuss case with them and ID
[2018-04-08] MEDS: Nicotine Patch Removal NOTE FOLLOW UP SCH (21:57)
[2018-04-09] MEDS: Morphine VIAL* 4 MG/ML VIAL (1 ml vial) IV PRN (05:21)
[2018-04-09] MEDS: metroNIDAZOLE IV 500 MG/100ML* 500 MG/100 ML BAG IVPB SCH ×3 (05:22→21:01)
[2018-04-09 06:04] LABS: ABS Basophils 0.1 10^3/ul (0-0.2); ABS Eosinophils 0.1 10^3/ul (0-0.6); ABS Lymphocytes 1.3 10^3/ul (1.0-4.8); ABS Monocytes 0.9 10^3/ul (0-0.8); ABS Neutrophils 7.5 10^3/ul (1.5-7.7); ABS Nucleated RBC 0 10^3/ul; Eosinophil % 1.5 %; Hematocrit 35 % (42-52); Hemoglobin 11.9 g/dl (14.0-18.0); Lymphocyte % 13.2 %; Mean Corpuscular HGB Conc 34 g/dl (31-36); Mean Corpuscular Hemoglobin 31 pg (27-31); Mean Corpuscular Volume 91 fL (80-94); Mean Platelet Volume 8.5 fL (7.4-10.4); Nucleated Red Blood Cells % 0; Platelet Count 342 10^3/ul (150-450); Red Blood Count 3.86 10^6/ul (4.00-5.40); Red Cell Distribution Width 15 % (10.5-15)
[2018-04-09 06:13] LABS: INR 1.48 (0.77-1.02)
[2018-04-09 06:22] LABS: BUN/Creatinine Ratio 12.7 (8-20); C Reactive Protein 202.8 mg/L (<8.01); Calcium 8.6 mg/dL (8.6-10.3); EGFR Non-African American 135.4 (>60); Potassium 3.6 mmol/L (3.5-5.0)
[2018-04-09] MEDS: Ciprofloxacin 400MG IVPREMIX(* 400 MG/200 ML BAG IVPB SCH ×2 (07:35→19:11)
[2018-04-09] MEDS: Nicotine PATCH 21 MG/24 HR* PATCH TRANSDERM SCH (07:36)
[2018-04-09] MEDS: NS 0.9% 1000 ML* 1,000 ML IV SCH ×2 (07:39→23:08)
--- NOTE | 2018-04-09 08:27 | PN ---
Subjective Date of Service: 04/09/18 Interval History: Afebrile overnight. Still sore at the drain site but otherwise feeling okay. Drinking a cup of coffee. Objective Active Medications: Acetaminophen (Tylenol Tab*) 650 mg PO Q6H PRN PRN Reason: PAIN Last Admin: 04/08/18 23:41 Dose: 650 mg Device (Nicotine Mouth Piece*) 1 each INH Q2H PRN PRN Reason: CRAVINGS Last Admin: 04/07/18 22:53 Dose: 1 each Ciprofloxacin/Dextrose (Cipro 400 Mg Ivpremix(*)) 400 mg in 200 mls @ 200 mls/ hr IVPB Q12H [facility] Last Admin: 04/09/18 07:35 Dose: 200 mls/hr Sodium Chloride (Ns 0.9% 1000 Ml*) 1,000 mls @ 75 mls/hr IV PER RATE [facility] Last Admin: 04/09/18 07:39 Dose: 75 mls/hr Metronidazole/Sodium Chloride (Flagyl 500 Mg Ivpb*) 500 mg in 100 mls @ 100 mls /hr IVPB 0500,1300,2100 [facility] Last Admin: 04/09/18 05:22 Dose: 100 mls/hr Morphine Sulfate (Morphine Vial*) 5 mg IV Q3H PRN PRN Reason: PAIN Last Admin: 04/09/18 05:21 Dose: 5 mg Nicotine (Nicotine Inhaler*) 10 mg INH Q2H PRN PRN Reason: CRAVING Last Admin: 04/08/18 22:01 Dose: 10 mg Nicotine (Nicotine Patch 21 Mg/24 Hr*) 1 patch TRANSDERM 0900 [facility] Last Admin: 04/09/18 07:36 Dose: Not Given Ondansetron HCl (Zofran Inj*) 4 mg IV Q6H PRN PRN Reason: NAUSEA Pharmacy Profile Note (Nicotine Patch Removal Note*) 1 note FOLLOW UP 2100 [facility] Last Admin: 04/08/18 21:57 Dose: Not Given Vital Signs - 8 hr 04/09/18 04/09/18 04/09/18 02:30 03:13 05:21 Temperature 98.4 F Pulse Rate 76 Respiratory 18 16 20 Rate Blood Pressure 134/89 (mmHg) O2 Sat by Pulse 96 Oximetry 04/09/18 04/09/18 06:50 07:16 Temperature 98.1 F Pulse Rate 77 Respiratory 18 18 Rate Blood Pressure 146/94 (mmHg) O2 Sat by Pulse 94 Oximetry Oxygen Devices in Use Now: None Appearance: alert, walking around room, well appearing Eyes: No Scleral Icterus Ears/Nose/Mouth/Throat: NL Teeth, Lips, Gums Neck: NL Appearance and Movements; NL JVP Respiratory: Symmetrical Chest Expansion and Respiratory Effort, Clear to Auscultation Cardiovascular: NL Sounds; No Murmurs; No JVD, RRR Abdominal: - - RLQ drain draining creamy reddish fluid, tender to deep palpation RLQ no guarding Lymphatic: No Cervical Adenopathy Extremities: No Edema Skin: No Rash or Ulcers Neurological: Alert and Oriented x 3 Result Diagrams: 04/09/18 05:32 04/09/18 05:32 Additional Lab and Data: Lab Results 04/07/18 Range/Units 12:32 WBC 14.8 H (3.5-10.8) 10^3/ul RBC 4.41 (4.00-5.40) 10^6/ul Hgb 13.4 L (14.0-18.0) g/dl Hct 40 L (42-52) % MCV 91 (80-94) fL MCH 31 (27-31) pg MCHC 34 (31-36) g/dl RDW 14 (10.5-15) % Plt Count 323 (150-450) 10^3/ul MPV 8.5 (7.4-10.4) fL Neut % (Auto) Pending Lymph % (Auto) Pending [place] % (Auto) Pending Eos % (Auto) Pending Baso % (Auto) Pending Absolute Neuts (auto) Pending Absolute Lymphs (auto) Pending Absolute Monos (auto) Pending Absolute Eos (auto) Pending Absolute Basos (auto) Pending Absolute Nucleated RBC Pending Nucleated RBC % Pending Microbiology and Other Data: Microbiology 04/08/18 11:30 Gram Stain - Final Misc Fluid (See Comment) - Abscess Skin and Soft Tissue MRSA/MSSA (PCR - Final Mrsa Negative S.aureus Negative Assess/Plan/Problems-Billing Assessment: This is a 47 year old man with no medical history who presented with 8-9 days of worsening abdominal pain and was found to have an intraabdominal abscess - Patient Problems (1) Intra-abdominal abscess Current Visit: Yes Status: Acute Code(s): K65.1 - PERITONEAL ABSCESS SNOMED Code(s): 40303801 Comment: s/p drain yesterday with IR ; cultures pending suspect microperforaction from diverticulitis but will need repeat imaging (2) Nicotine dependence Current Visit: Yes Status: Acute Code(s): F17.200 - NICOTINE DEPENDENCE, UNSPECIFIED, UNCOMPLICATED SNOMED Code(s): 66436791 Comment: no withdrawal symptoms on nicotine inhalers (3) Coagulopathy Current Visit: Yes Status: Acute Comment: no prior INRs for comparison; INR rising while other inflammatory/infectious markers are improving. may lag and will need to follow.
[2018-04-09] MEDS ORDERED: oxyCODONE/Acetamin 5/325 MG* TAB ONE (10:01)
[2018-04-09] MEDS: oxyCODONE/Acetamin 5/325 MG* TAB PO PRN ×4 (10:03→23:10)
--- NOTE | 2018-04-09 10:04 | PN ---
Progress Note - Progress Note Date of Service: 04/09/18 SOAP: Subjective: C/o R side abd pain better with pain meds. Only getting morphine and tylenol. Eating fine without N/V. +flatus. Objective: Vital Signs Temp 98.1 F 04/09/18 07:16 Pulse 77 04/09/18 07:16 Resp 18 04/09/18 07:16 BP 146/94 04/09/18 07:16 Pulse Ox 94 04/09/18 07:16 Gen: sitting in chair; mild distress. Abd: drain intact with sanguinopurulent o/p; soft with mild tenderness in R abd. No LLQ tenderness. Intake & Output 04/08/18 04/09/18 04/09/18 18:59 06:59 18:59 Intake Total 1659 510 Output Total 480 1550 Balance 1179 -1040 Intake: IV Fluids 719 ABX - CIPROFLOXACIN 324 ABX - FLAGYL 110 NS 285 IVPB 0 ABX - FLAGYL 0 Oral 940 510 Output: Pigtail Drain 80 50 Urine 400 1500 Other: Estimated Void Medium Medium # Bowel Movements 0 Estimated Stool Amount Medium # Voids 2 1 Laboratory Results - last 24 hr 04/09/18 04/09/18 04/09/18 05:32 05:32 05:32 WBC 10.0 RBC 3.86 L Hgb 11.9 L Hct 35 L MCV 91 MCH 31 MCHC 34 RDW 15 Plt Count 342 MPV 8.5 Neut % (Auto) 75.1 Lymph % (Auto) 13.2 [place] % (Auto) 9.4 Eos % (Auto) 1.5 Baso % (Auto) 0.8 Absolute Neuts (auto) 7.5 Absolute Lymphs (auto) 1.3 Absolute Monos (auto) 0.9 H Absolute Eos (auto) 0.1 Absolute Basos (auto) 0.1 Absolute Nucleated RBC 0 Nucleated RBC % 0 INR (Anticoag Therapy) 1.48 H Sodium 136 Potassium 3.6 Chloride 101 Carbon Dioxide 26 Anion Gap 9 BUN 8 Creatinine 0.63 L Est GFR ( Amer) 163.8 Est GFR (Non-Af Amer) 135.4 BUN/Creatinine Ratio 12.7 Glucose 106 H Calcium 8.6 C-Reactive Protein 202.80 H Assessment: 47 M with intraabdominal abscess, possible missed appendicitis. Improving with IV abx and drain. Plan: Cont drain and abx. Cont diet. f/u CT probably next week. Non-urgent GI consult.
[2018-04-09] MEDS: Nicotine Inhaler* 10 MG AMP INH PRN ×2 (15:15→20:46)
[2018-04-09] MEDS: Nicotine Patch Removal NOTE FOLLOW UP SCH (20:49)
[2018-04-10] MEDS: metroNIDAZOLE IV 500 MG/100ML* 500 MG/100 ML BAG IVPB SCH ×3 (04:59→21:29)
[2018-04-10] MEDS: oxyCODONE/Acetamin 5/325 MG* TAB PO PRN ×5 (05:00→22:52)
[2018-04-10 05:39] LABS: ABS Basophils 0 10^3/ul (0-0.2); ABS Eosinophils 0.3 10^3/ul (0-0.6); ABS Lymphocytes 1.6 10^3/ul (1.0-4.8); ABS Monocytes 0.9 10^3/ul (0-0.8); ABS Neutrophils 6.2 10^3/ul (1.5-7.7); ABS Nucleated RBC 0 10^3/ul; Eosinophil % 3.1 %; Hematocrit 36 % (42-52); Hemoglobin 12.2 g/dl (14.0-18.0); Lymphocyte % 17.9 %; Mean Corpuscular HGB Conc 34 g/dl (31-36); Mean Corpuscular Hemoglobin 31 pg (27-31); Mean Corpuscular Volume 92 fL (80-94); Mean Platelet Volume 8.6 fL (7.4-10.4); Nucleated Red Blood Cells % 0.1; Platelet Count 432 10^3/ul (150-450); Red Blood Count 3.97 10^6/ul (4.00-5.40); Red Cell Distribution Width 14 % (10.5-15)
[2018-04-10 05:43] LABS: INR 1.33 (0.77-1.02)
[2018-04-10 05:58] LABS: BUN/Creatinine Ratio 12.2 (8-20); Calcium 8.7 mg/dL (8.6-10.3); EGFR Non-African American 112.4 (>60); Potassium 4.2 mmol/L (3.5-5.0)
[2018-04-10] MEDS: Ciprofloxacin 400MG IVPREMIX(* 400 MG/200 ML BAG IVPB SCH ×2 (08:51→18:58)
[2018-04-10] MEDS: Nicotine PATCH 21 MG/24 HR* PATCH TRANSDERM SCH (08:51)
--- NOTE | 2018-04-10 12:07 | PN ---
Progress Note - Progress Note Date of Service: 04/10/18 Note: Surgery Progress Note S: Patient is doing well. Tolerating diet, no nausea or emesis. Minimal abdominal pain. Passing flatus and small BM. Ambulating without difficulty, remains afebrile. Objective: Vital Signs: Temp Pulse Resp BP Pulse Ox 97.8 F 70 16 147/86 100 04/10/18 07:29 04/10/18 07:29 04/10/18 09:00 04/10/18 07:29 04/10/18 07:29 Vital Signs: Temp Pulse Resp BP Pulse Ox 97.8 F 70 16 147/86 100 04/10/18 07:29 04/10/18 07:29 04/10/18 09:00 04/10/18 07:29 04/10/18 07:29 Laboratory Last Values WBC 9.0 10^3/ul (3.5-10.8) 04/10/18 05:00 RBC 3.97 10^6/ul (4.00-5.40) L 04/10/18 05:00 Hgb 12.2 g/dl (14.0-18.0) L 04/10/18 05:00 Hct 36 % (42-52) L 04/10/18 05:00 MCV 92 fL (80-94) 04/10/18 05:00 MCH 31 pg (27-31) 04/10/18 05:00 MCHC 34 g/dl (31-36) 04/10/18 05:00 RDW 14 % (10.5-15) 04/10/18 05:00 Plt Count 432 10^3/ul (150-450) 04/10/18 05:00 MPV 8.6 fL (7.4-10.4) 04/10/18 05:00 Neut % (Auto) 69.0 % 04/10/18 05:00 Lymph % (Auto) 17.9 % 04/10/18 05:00 Glades % (Auto) 9.7 % 04/10/18 05:00 Eos % (Auto) 3.1 % 04/10/18 05:00 Baso % (Auto) 0.3 % 04/10/18 05:00 Absolute Neuts (auto) 6.2 10^3/ul (1.5-7.7) 04/10/18 05:00 Absolute Lymphs (auto) 1.6 10^3/ul (1.0-4.8) 04/10/18 05:00 Absolute Monos (auto) 0.9 10^3/ul (0-0.8) H 04/10/18 05:00 Absolute Eos (auto) 0.3 10^3/ul (0-0.6) 04/10/18 05:00 Absolute Basos (auto) 0 10^3/ul (0-0.2) 04/10/18 05:00 Absolute Nucleated RBC 0 10^3/ul 04/10/18 05:00 Nucleated RBC % 0.1 04/10/18 05:00 INR (Anticoag Therapy) 1.33 (0.77-1.02) H 04/10/18 05:00 Sodium 137 mmol/L (135-145) 04/10/18 05:00 Potassium 4.2 mmol/L (3.5-5.0) 04/10/18 05:00 Chloride 104 mmol/L (101-111) 04/10/18 05:00 Carbon Dioxide 28 mmol/L (22-32) 04/10/18 05:00 Anion Gap 5 mmol/L (2-11) 04/10/18 05:00 BUN 9 mg/dL (6-24) 04/10/18 05:00 Creatinine 0.74 mg/dL (0.67-1.17) 04/10/18 05:00 Est GFR ( Amer) 136.0 (>60) 04/10/18 05:00 Est GFR (Non-Af Amer) 112.4 (>60) 04/10/18 05:00 BUN/Creatinine Ratio 12.2 (8-20) 04/10/18 05:00 Glucose 114 mg/dL (70-100) H 04/10/18 05:00 Lactic Acid 0.7 mmol/L (0.5-2.0) 04/07/18 12:32 Calcium 8.7 mg/dL (8.6-10.3) 04/10/18 05:00 Total Bilirubin 0.70 mg/dL (0.2-1.0) 04/07/18 12:32 AST 20 U/L (13-39) 04/07/18 12:32 ALT 20 U/L (7-52) 04/07/18 12:32 Alkaline Phosphatase 152 U/L (34-104) H 04/07/18 12:32 C-Reactive Protein 202.80 mg/L (<8.01) H 04/09/18 05:32 Total Protein 7.1 g/dL (6.4-8.9) 04/07/18 12:32 Albumin 3.5 g/dL (3.2-5.2) 04/07/18 12:32 Globulin 3.6 g/dL (2-4) 04/07/18 12:32 Albumin/Globulin Ratio 1.0 (1-3) 04/07/18 12:32 Lipase 13 U/L (11.0-82.0) 04/07/18 12:32 Intake & Output 04/09/18 04/10/18 04/10/18 22:59 06:59 14:59 Intake Total 810 1648 Output Total 720 805 400 Balance 90 843 -400 Intake: IV Fluids 1148 ABX - CIPROFLOXACIN 200 ABX - FLAGYL 104 NS 844 Oral 810 480 Pigtail Drain 20 Output: Pigtail Drain 20 5 Urine 700 800 400 Abx: cipro/flagyl Drain output x 24 hour: 130cc Micro: alpha strep, anaerobic gram negative bacillus Physical exam: abdomen soft, minimally tender in the suprapubic region A/P: 47M with intraabdominal abscess, unclear etiology, s/p percutaneous drainage on 04/08, doing well-- remains afebrile, WBC normal, pain minimal. - Recommend GI consult for further evaluation of etiology of abscess, likely will need outpatient colonoscopy - Recommend ID consult for jail abx recommendations, recommendations on reimaging? Currently awaiting sensitivities from abscess culture - Patient likely should have repeat imaging when drain output declines to assess for resolution vs. undrained abscess that may be amenable to repeat percutaneous drainage - Continue regular diet, OOB and ambulate, abx
[2018-04-10] MEDS: Nicotine Inhaler* 10 MG AMP INH PRN ×2 (13:18→19:13)
--- NOTE | 2018-04-10 15:40 | PN ---
Subjective Date of Service: 04/10/18 Interval History: Pain much better, now seems to be due only to the catheter. @ small BM's today so far. Appetite good. No new c/o. Using NRT. Objective Active Medications: Acetaminophen (Tylenol Tab*) 650 mg PO Q6H PRN PRN Reason: PAIN Last Admin: 04/08/18 23:41 Dose: 650 mg Device (Nicotine Mouth Piece*) 1 each INH Q2H PRN PRN Reason: CRAVINGS Last Admin: 04/07/18 22:53 Dose: 1 each Ciprofloxacin/Dextrose (Cipro 400 Mg Ivpremix(*)) 400 mg in 200 mls @ 200 mls/ hr IVPB Q12H [facility] Last Admin: 04/10/18 08:51 Dose: 200 mls/hr Sodium Chloride (Ns 0.9% 1000 Ml*) 1,000 mls @ 75 mls/hr IV PER RATE [facility] Last Admin: 04/09/18 23:08 Dose: 75 mls/hr Metronidazole/Sodium Chloride (Flagyl 500 Mg Ivpb*) 500 mg in 100 mls @ 100 mls /hr IVPB 0500,1300,2100 [facility] Last Admin: 04/10/18 13:13 Dose: 100 mls/hr Morphine Sulfate (Morphine Vial*) 5 mg IV Q3H PRN PRN Reason: PAIN Last Admin: 04/09/18 05:21 Dose: 5 mg Nicotine (Nicotine Inhaler*) 10 mg INH Q2H PRN PRN Reason: CRAVING Last Admin: 04/10/18 13:18 Dose: 10 mg Nicotine (Nicotine Patch 21 Mg/24 Hr*) 1 patch TRANSDERM 0900 [facility] Last Admin: 04/10/18 08:51 Dose: Not Given Ondansetron HCl (Zofran Inj*) 4 mg IV Q6H PRN PRN Reason: NAUSEA Oxycodone/Acetaminophen (Percocet 5/325 Tab*) 1 tab PO Q3H PRN PRN Reason: PAIN - MODERATE Last Admin: 04/10/18 13:13 Dose: 1 tab Pharmacy Profile Note (Nicotine Patch Removal Note*) 1 note FOLLOW UP 2100 [facility] Last Admin: 04/09/18 20:49 Dose: Not Given Vital Signs - 8 hr 04/10/18 04/10/18 04/10/18 07:29 08:45 09:00 Temperature 97.8 F Pulse Rate 70 Respiratory 16 16 16 Rate Blood Pressure 147/86 (mmHg) O2 Sat by Pulse 100 Oximetry 04/10/18 13:13 Temperature Pulse Rate Respiratory 16 Rate Blood Pressure (mmHg) O2 Sat by Pulse Oximetry Oxygen Devices in Use Now: None Appearance: Alert, in a chair. In good spirits. Looks comfortable. Eyes: No Scleral Icterus Result Diagrams: 04/10/18 05:00 04/10/18 05:00 Additional Lab and Data: Lab Results 04/07/18 Range/Units 12:32 WBC 14.8 H (3.5-10.8) 10^3/ul RBC 4.41 (4.00-5.40) 10^6/ul Hgb 13.4 L (14.0-18.0) g/dl Hct 40 L (42-52) % MCV 91 (80-94) fL MCH 31 (27-31) pg MCHC 34 (31-36) g/dl RDW 14 (10.5-15) % Plt Count 323 (150-450) 10^3/ul MPV 8.5 (7.4-10.4) fL Neut % (Auto) Pending Lymph % (Auto) Pending [place] % (Auto) Pending Eos % (Auto) Pending Baso % (Auto) Pending Absolute Neuts (auto) Pending Absolute Lymphs (auto) Pending Absolute Monos (auto) Pending Absolute Eos (auto) Pending Absolute Basos (auto) Pending Absolute Nucleated RBC Pending Nucleated RBC % Pending Microbiology and Other Data: Microbiology 04/08/18 11:30 Gram Stain - Final Misc Fluid (See Comment) - Abscess Skin and Soft Tissue MRSA/MSSA (PCR - Final Mrsa Negative S.aureus Negative Assess/Plan/Problems-Billing Assessment: This is a 47 year old man with no medical history who presented with 8-9 days of worsening abdominal pain and was found to have an intraabdominal abscess - Patient Problems (1) Intra-abdominal abscess Current Visit: Yes Status: Acute Code(s): K65.1 - PERITONEAL ABSCESS SNOMED Code(s): 77481438 Comment: s/p drain 04/08/19 with IR. cultures growing strep, B. fragilis. Dr. Kwon to consult. Continue cipro/metro. (2) Tobacco abuse Current Visit: Yes Status: Acute Code(s): Z72.0 - TOBACCO USE SNOMED Code( s): 624796660 Comment: Pt advised to quit smoking and avoid second hand smoke.
--- NOTE | 2018-04-10 19:21 | CONS ---
GASTROENTEROLOGY CONSULT REPORT: DATE OF CONSULT: 04/10/18 REQUESTING CONSULT: Dr. العراقي. REASON FOR CONSULT: Intra-abdominal abscess. HISTORY OF PRESENT ILLNESS: Mr. Milton is a 47-year-old gentleman without significant past medical history, who is admitted with 1 to 2 weeks of abdominal pain. Imaging demonstrates intra-abdominal abscess of unclear etiology. Mr. Milton states that he was in his usual state of health until approximately 03/29/18. At that point, he developed severe suprapubic pain. This pain continued until he presented to the ER for evaluation on 04/07/18. He also describes mild diarrhea at times. He had several episodes of severe chills, although he did not take his temperature. He denies any nausea, vomiting, or pain elsewhere in his abdomen. He thought that perhaps he was having a bladder infection, so he took a bladder medicine [id number] without any improvement. He has never had any similar type pain. On admission, he was noted to have a leukocytosis. CT scan demonstrated a right of midline peritoneal abscess. Note was also made of wall thickening of the terminal ileum and sigmoid colon. Appendix was not well seen on imaging. Etiology of abscess not entirely clear, although it has been suspected that the abscess may represent complications of appendicitis. The patient underwent IR placed drain in the abscess. The culture from the fluid is growing Strep anginosus and Bacteroides fragilis. He is on antibiotics at present. Pain is markedly improved compared to admission. On interview, Mr. Milton states that he has no history of GI symptoms. He denies any episodes of abdominal pain in the past. He denies any nausea or vomiting in the past. He has normal bowel movements. He has never seen any blood in his stool. He has not yet had a colonoscopy as he is 47. PAST MEDICAL HISTORY: No significant past medical history per the patient. PAST SURGICAL HISTORY: None. MEDICATIONS: None. ALLERGIES: No known drug allergies. FAMILY HISTORY: Father with lung cancer, maternal uncle with colon cancer, maternal grandfather with colon cancer, diabetes in family. Age at which family members developed colon cancer is unknown. SOCIAL HISTORY: The patient smokes cigarettes. He was smoking a pack a day, but over the past month he has cut down. He uses marijuana daily. He has a history of heavy alcohol use, but he denies any current or recent alcohol use. REVIEW OF SYSTEMS: Fourteen-point review of systems is negative except as above. PHYSICAL EXAM: Vital Signs: Afebrile, heart rate 70, blood pressure 147/86, 100% on room air. General: Pleasant, well-appearing gentleman, in no acute distress. HEENT: Mucous membranes moist. Cardiovascular: Regular rate and rhythm. No murmurs, rubs, or gallops. Pulmonary: Lungs clear to auscultation. No wheezes. Abdomen: Soft, nondistended. Mildly tender in suprapubic area and in right lower quadrant around site of drain. Very small amount of cloudy fluid in bag connected to intra-abdominal drain. Extremities: No edema. Skin: No rashes or jaundice. DIAGNOSTIC STUDIES/LAB DATA: Laboratories: Labs reviewed. White count on admission elevated to 14.8, but is currently 9. Hemoglobin 13.4 on admission, now 12.2. Platelet count is normal. INR mildly elevated in the 1.3 to 1.4 range. Sodium was low at 132 on admission and is now normal at 137. Creatinine is normal, lactic acid has been normal, AST and ALT normal, alk phos mildly elevated to 152, bilirubin normal at 0.7. CRP elevated to 203.9 on admission. Imaging: CT abdomen and pelvis summarized in HPI. Again, the patient noted to have right of midline peritoneal abscess. There is also wall thickening in terminal ileum and possibly sigmoid colon. Appendix not discretely seen. The suspicion is that the appendix is in the area of the inflammatory change and abscess and may be the source. Crohn's disease with skip lesions also suggested as a possibility in the radiology report. IMPRESSION AND RECOMMENDATIONS: Mr. Milton is a 47-year-old gentleman without significant past medical history, who is admitted with 1 to 2 weeks of suprapubic abdominal pain. Labs notable for leukocytosis and elevated CRP. Imaging notable for an intra-abdominal abscess. While the source of the abscess is not clear, it is quite possible that this represents an appendiceal abscess. GI consulted given concern for possible Crohn's as there is also some inflammation in the terminal ileum and possibly sigmoid colon. Mr. Milton denies any GI symptoms prior to the episode of acute pain making undiagnosed Crohn's less likely. The inflammation in these areas may be secondary to an appendiceal (or less likely diverticular) abscess. I have a lower suspicion that the patient has undiagnosed Crohn's disease; however, I do think it is important that he undergo a colonoscopy after the acute episode has resolved to evaluate further. Discussed with the patient that I would like to see him in clinic within the next few weeks. I will tentatively plan on doing a colonoscopy in next 6 to 8 weeks after we have ensured that the abscess has resolved. He will continue with the antibiotics and will be undergoing a repeat CT scan at some point in the near future under the guidance of Surgery. Thank you very much for this interesting consult. GI will remain available. I will arrange for the outpatient followup to be scheduled. [id number]/CPS #: [id number] MTDD
[2018-04-10] MEDS: Nicotine Patch Removal NOTE FOLLOW UP SCH (21:36)
[2018-04-11] MEDS: oxyCODONE/Acetamin 5/325 MG* TAB PO PRN ×5 (03:17→21:21)
[2018-04-11] MEDS: metroNIDAZOLE IV 500 MG/100ML* 500 MG/100 ML BAG IVPB SCH ×3 (04:56→21:22)
[2018-04-11] MEDS: Nicotine Inhaler* 10 MG AMP INH PRN ×4 (07:23→21:21)
[2018-04-11] MEDS: Ciprofloxacin 400MG IVPREMIX(* 400 MG/200 ML BAG IVPB SCH (07:24)
[2018-04-11] MEDS: Nicotine PATCH 21 MG/24 HR* PATCH TRANSDERM SCH (07:27)
--- NOTE | 2018-04-11 09:07 | PN ---
Progress Note - Progress Note Date of Service: 04/11/18 Note: Surgery Progress Note S: Patient doing well, no new complaints. Still ambulating, tolerating diet, afebrile. Has abdominal pain when he gets in and out of bed. Objective: Vital Signs: Temp Pulse Resp BP Pulse Ox 97.6 F 65 16 142/92 99 04/11/18 08:04 04/11/18 08:04 04/11/18 08:04 04/11/18 08:04 04/11/18 08:04 Labs: No new labs Intake & Output 04/10/18 04/11/18 04/11/18 22:59 06:59 14:59 Intake Total 120 660 210 Output Total 700 725 Balance -580 -65 210 Intake: IV Fluids 210 ABX - CIPROFLOXACIN 210 IVPB 300 ABX - CIPROFLOXACIN 200 ABX - FLAGYL 100 Oral 120 360 Output: Pigtail Drain 25 Urine 700 700 Other: # Bowel Movements 1 Estimated Stool Amount Medium # Voids 1 Drain output: x 24 hour- ~65cc Abx: Cipro/flagyl Physical exam: abd mildly distended, tender in suprapubic area, drain with seropurulent fluid A/P: 47 M with intraabdominal abscess, sp percutaneous drainage, improving. - Appreciate GI recommendations, will follow up as an outpatient with colonoscopy - Recommend ID consultation for adjunct faculty for medical terminology abx recs when culture sensitivities return - Repeat CT abd/pelvis with PO/IV contrast when drain output declines
[2018-04-11] MEDS: Acetaminophen TAB* 325 MG PO PRN (09:39)
[2018-04-11] MEDS: cefTRIAXone(*) 1 GM in NS 0.9% 50 ML* 50 ML IVPB SCH (11:27)
--- NOTE | 2018-04-11 13:03 | PN ---
Subjective Date of Service: 04/11/18 Interval History: No pain, n bowel c/o, good appetite. No new c/o. Objective Active Medications: Acetaminophen (Tylenol Tab*) 650 mg PO Q6H PRN PRN Reason: PAIN Last Admin: 04/11/18 09:39 Dose: 650 mg Device (Nicotine Mouth Piece*) 1 each INH Q2H PRN PRN Reason: CRAVINGS Last Admin: 04/07/18 22:53 Dose: 1 each Metronidazole/Sodium Chloride (Flagyl 500 Mg Ivpb*) 500 mg in 100 mls @ 100 mls /hr IVPB 0500,1300,2100 [facility] Last Admin: 04/11/18 12:54 Dose: 100 mls/hr Ceftriaxone Sodium 1 gm/ (Sodium Chloride) 50 mls @ 200 mls/hr IVPB Q24H [facility] Last Admin: 04/11/18 11:27 Dose: 200 mls/hr Morphine Sulfate (Morphine Vial*) 5 mg IV Q3H PRN PRN Reason: PAIN Last Admin: 04/09/18 05:21 Dose: 5 mg Nicotine (Nicotine Inhaler*) 10 mg INH Q2H PRN PRN Reason: CRAVING Last Admin: 04/11/18 07:23 Dose: 10 mg Nicotine (Nicotine Patch 21 Mg/24 Hr*) 1 patch TRANSDERM 0900 [facility] Last Admin: 04/11/18 07:27 Dose: Not Given Ondansetron HCl (Zofran Inj*) 4 mg IV Q6H PRN PRN Reason: NAUSEA Oxycodone/Acetaminophen (Percocet 5/325 Tab*) 1 tab PO Q3H PRN PRN Reason: PAIN - MODERATE Last Admin: 04/11/18 07:24 Dose: 1 tab Pharmacy Profile Note (Nicotine Patch Removal Note*) 1 note FOLLOW UP 2100 [facility] Last Admin: 04/10/18 21:36 Dose: Not Given Vital Signs - 8 hr 04/11/18 04/11/18 04/11/18 05:43 07:24 08:00 Temperature Pulse Rate Respiratory 16 20 18 Rate Blood Pressure (mmHg) O2 Sat by Pulse Oximetry 04/11/18 04/11/18 04/11/18 08:04 09:30 09:41 Temperature 97.6 F Pulse Rate 65 Respiratory 16 16 18 Rate Blood Pressure 142/92 (mmHg) O2 Sat by Pulse 99 Oximetry 04/11/18 11:14 Temperature 97.7 F Pulse Rate 70 Respiratory 16 Rate Blood Pressure 128/79 (mmHg) O2 Sat by Pulse 100 Oximetry Oxygen Devices in Use Now: None Appearance: Alert, sitting on the edge of his bed. In good spirits. Looks comfortable. Eyes: No Scleral Icterus Extremities: No Edema, No Clubbing, Cyanosis, - Skin: No Rash or Ulcers, No Nodules or Sclerosis, - Neurological: Alert and Oriented x 3, NL Sensation Result Diagrams: 04/10/18 05:00 04/10/18 05:00 Additional Lab and Data: Lab Results 04/07/18 Range/Units 12:32 WBC 14.8 H (3.5-10.8) 10^3/ul RBC 4.41 (4.00-5.40) 10^6/ul Hgb 13.4 L (14.0-18.0) g/dl Hct 40 L (42-52) % MCV 91 (80-94) fL MCH 31 (27-31) pg MCHC 34 (31-36) g/dl RDW 14 (10.5-15) % Plt Count 323 (150-450) 10^3/ul MPV 8.5 (7.4-10.4) fL Neut % (Auto) Pending Lymph % (Auto) Pending [place] % (Auto) Pending Eos % (Auto) Pending Baso % (Auto) Pending Absolute Neuts (auto) Pending Absolute Lymphs (auto) Pending Absolute Monos (auto) Pending Absolute Eos (auto) Pending Absolute Basos (auto) Pending Absolute Nucleated RBC Pending Nucleated RBC % Pending Microbiology and Other Data: Microbiology 04/08/18 11:30 Gram Stain - Final Misc Fluid (See Comment) - Abscess Skin and Soft Tissue MRSA/MSSA (PCR - Final Mrsa Negative S.aureus Negative Assess/Plan/Problems-Billing Assessment: This is a 47 year old man with no medical history who presented with 8-9 days of worsening abdominal pain and was found to have an intraabdominal abscess - Patient Problems (1) Intra-abdominal abscess Current Visit: Yes Status: Acute Code(s): K65.1 - PERITONEAL ABSCESS SNOMED Code(s): 70770295 Comment: s/p drain 04/08/19 with IR. cultures growing strep, B. fragilis. Dr. Kwon's consult appreciated. Continue cipro/metro. Discussed with Dr. Chapa. He can be treated as an outpt with ceftriaxone IV once daily. (2) Tobacco abuse Current Visit: Yes Status: Acute Code(s): Z72.0 - TOBACCO USE SNOMED Code( s): 354318307 Comment: Pt advised to quit smoking and avoid second hand smoke.
--- NOTE | 2018-04-11 13:16 | CONS ---
CONSULTATION REPORT: DATE OF CONSULT: 04/11/18 REQUESTING PHYSICIAN: Dr. العراقي. CONSULTING SERVICE: Infectious Disease. REASON FOR CONSULT: Intra-abdominal abscess. IMPRESSION: 1. A 5 x 8 cm intra-abdominal abscess right at midline between the cecum and sigmoid colon. Differential diagnosis thus far includes perforated appendix, inflammatory bowel disease, diverticular disease. He has no symptoms of an enterocutaneous fistula other than initial pelvic and suprapubic pressure which may just have been abscess pushing on bladder and local contents. 2. He has had a percutaneous drainage. Cultures growing Streptococcus anginosus and bacteroides. RECOMMENDATIONS: Stop Cipro, start ceftriaxone 1 g a day for gram-positive coverage including streptococcus and continue the Flagyl which we will change to oral. Given the decent size of the abscess and percutaneous drainage, we will plan on another 10 days of IV antibiotics which he can come to infusion center once a day for ceftriaxone in conjunction with Flagyl by mouth twice daily. HISTORY OF PRESENT ILLNESS: A 47-year-old man, otherwise healthy, admitted with about 10 days of suprapubic pain, pressure, and anorexia. He lost a couple of pounds during that time. He had rigors, did not check his temperature. He was in [place] when it all started, caring for his father who . He came back to this area. He came to the hospital. He has initially had urinary tract infection, did not have dysuria, just had pressure and may be slight change, darkening of his urine. Here, he had a CT scan after white count was found and elevated C-reactive protein with findings as above. He had percutaneous drainage which he tolerated well. Today, he still has some pressure, no dysuria. No passing air or stool when he urinates. Has has not had infection or gastrointestinal complaints, requiring hospitalization. PAST MEDICAL HISTORY: None. MEDICATIONS: 1. Cipro. 2. Flagyl. 3. Morphine. 4. Nicotine patch. 5. Oxycodone. SOCIAL HISTORY: He smokes cigarettes, drinks vodka daily. Has not had anything to drink for about 10 days. ALLERGIES: No known drug allergies. REVIEW OF SYSTEMS: A 14-point review is all negative except as noted above in the history of present illness. PHYSICAL EXAM: Vital Signs: Temperature 36.4, heart rate 60, respiratory rate 16, blood pressure 142/92, oxygen saturation 99% on room air. In general, he is awake, not in distress. Neurologic: He is oriented x3. Follows all commands. HEENT: There is no conjunctival hemorrhage. Oropharynx without lesions. Neck: Neck is supple without mass. Heart is regular rate and rhythm without murmurs, rubs, or gallops. Lungs: Clear to auscultation bilaterally. Abdomen: Soft, mildly distended. There are bowel sounds present. Midline drain with brownish red fluid. There is no rebound. LABORATORY DATA: White blood cell count 9, down from 15; hemoglobin 12; platelets 432. Creatinine 0.7. Please see impression and recommendations outlined above. Thank you for asking me to see Mr. Milton in consultation. [id number]/CPS #: [id number] APRIL
[2018-04-11] MEDS: Nicotine Patch Removal NOTE FOLLOW UP SCH (21:25)
[2018-04-12] MEDS: oxyCODONE/Acetamin 5/325 MG* TAB PO PRN ×6 (00:25→21:12)
[2018-04-12] MEDS: metroNIDAZOLE IV 500 MG/100ML* 500 MG/100 ML BAG IVPB SCH (05:43)
[2018-04-12] MEDS: Nicotine Inhaler* 10 MG AMP INH PRN ×4 (07:00→21:13)
--- NOTE | 2018-04-12 09:20 | PN ---
Subjective Date of Service: 04/12/18 Interval History: Pain control OK. No bowel c/o. Appetite good. No new c/o. Objective Active Medications: Acetaminophen (Tylenol Tab*) 650 mg PO Q6H PRN PRN Reason: PAIN Last Admin: 04/11/18 09:39 Dose: 650 mg Device (Nicotine Mouth Piece*) 1 each INH Q2H PRN PRN Reason: CRAVINGS Last Admin: 04/07/18 22:53 Dose: 1 each Metronidazole/Sodium Chloride (Flagyl 500 Mg Ivpb*) 500 mg in 100 mls @ 100 mls /hr IVPB 0500,1300,2100 [facility] Last Admin: 04/12/18 05:43 Dose: 100 mls/hr Ceftriaxone Sodium 1 gm/ (Sodium Chloride) 50 mls @ 200 mls/hr IVPB Q24H [facility] Last Admin: 04/11/18 11:27 Dose: 200 mls/hr Morphine Sulfate (Morphine Vial*) 5 mg IV Q3H PRN PRN Reason: PAIN Last Admin: 04/09/18 05:21 Dose: 5 mg Nicotine (Nicotine Inhaler*) 10 mg INH Q2H PRN PRN Reason: CRAVING Last Admin: 04/12/18 07:00 Dose: 10 mg Nicotine (Nicotine Patch 21 Mg/24 Hr*) 1 patch TRANSDERM 0900 [facility] Last Admin: 04/11/18 07:27 Dose: Not Given Ondansetron HCl (Zofran Inj*) 4 mg IV Q6H PRN PRN Reason: NAUSEA Oxycodone/Acetaminophen (Percocet 5/325 Tab*) 1 tab PO Q3H PRN PRN Reason: PAIN - MODERATE Last Admin: 04/12/18 05:44 Dose: 1 tab Pharmacy Profile Note (Nicotine Patch Removal Note*) 1 note FOLLOW UP 2100 [facility] Last Admin: 04/11/18 21:25 Dose: Not Given Vital Signs - 8 hr 04/12/18 04/12/18 04/12/18 02:30 03:22 05:44 Temperature 98.1 F Pulse Rate 60 Respiratory 18 16 18 Rate Blood Pressure 127/83 (mmHg) O2 Sat by Pulse 97 Oximetry 04/12/18 07:49 Temperature 97.9 F Pulse Rate 72 Respiratory 17 Rate Blood Pressure 139/85 (mmHg) O2 Sat by Pulse 98 Oximetry Oxygen Devices in Use Now: None Appearance: Alert, partly up in bed. In good spirits. Looks comfortable. Extremities: No Edema, No Clubbing, Cyanosis, - Skin: No Rash or Ulcers, No Nodules or Sclerosis, - Neurological: Alert and Oriented x 3, NL Sensation Result Diagrams: 04/10/18 05:00 04/10/18 05:00 Additional Lab and Data: Lab Results 04/07/18 Range/Units 12:32 WBC 14.8 H (3.5-10.8) 10^3/ul RBC 4.41 (4.00-5.40) 10^6/ul Hgb 13.4 L (14.0-18.0) g/dl Hct 40 L (42-52) % MCV 91 (80-94) fL MCH 31 (27-31) pg MCHC 34 (31-36) g/dl RDW 14 (10.5-15) % Plt Count 323 (150-450) 10^3/ul MPV 8.5 (7.4-10.4) fL Neut % (Auto) Pending Lymph % (Auto) Pending [place] % (Auto) Pending Eos % (Auto) Pending Baso % (Auto) Pending Absolute Neuts (auto) Pending Absolute Lymphs (auto) Pending Absolute Monos (auto) Pending Absolute Eos (auto) Pending Absolute Basos (auto) Pending Absolute Nucleated RBC Pending Nucleated RBC % Pending Microbiology and Other Data: Microbiology 04/08/18 11:30 Gram Stain - Final Misc Fluid (See Comment) - Abscess Skin and Soft Tissue MRSA/MSSA (PCR - Final Mrsa Negative S.aureus Negative Assess/Plan/Problems-Billing Assessment: This is a 47 year old man with no medical history who presented with 8-9 days of worsening abdominal pain and was found to have an intraabdominal abscess - Patient Problems (1) Intra-abdominal abscess Current Visit: Yes Status: Acute Code(s): K65.1 - PERITONEAL ABSCESS SNOMED Code(s): 94416356 Comment: s/p drain 04/08/19 with IR. cultures growing strep, B. fragilis. Dr. Kwon's consult appreciated. Continue ceftriaxone/metro. Discussed with Dr. Chapa. He can be treated as an outpt with ceftriaxone IV once daily and po metronidazole. (2) Tobacco abuse Current Visit: Yes Status: Acute Code(s): Z72.0 - TOBACCO USE SNOMED Code( s): 853701583 Comment: Pt advised to quit smoking and avoid second hand smoke.
[2018-04-12] MEDS: Nicotine PATCH 21 MG/24 HR* PATCH TRANSDERM SCH (09:26)
[2018-04-12] MEDS: metroNIDAZOLE TAB* 250 MG PO SCH ×2 (10:33→21:12)
[2018-04-12] MEDS: cefTRIAXone(*) 1 GM in NS 0.9% 50 ML* 50 ML IVPB SCH (14:34)
--- NOTE | 2018-04-12 14:57 | PN ---
Progress Note - Progress Note Date of Service: 04/12/18 Note: Surgery Progress Note S: Patient has no complaints. Doing well. Tolerating diet, afebrile, pain is minimal Objective: Vital Signs: Temp Pulse Resp BP Pulse Ox 97.8 F 58 20 126/76 98 04/12/18 11:12 04/12/18 11:12 04/12/18 14:33 04/12/18 11:12 04/12/18 11:12 Intake & Output 04/11/18 04/12/18 04/12/18 22:59 06:59 14:59 Intake Total 360 235 430 Output Total 770 320 405 Balance -410 -85 25 Intake: IVPB 105 100 ABX - FLAGYL 105 100 Oral 360 120 330 Pigtail Drain 10 Output: Pigtail Drain 20 20 5 Urine 750 300 400 Other: Date of Last Bowel 04/11/17 Movement # Bowel Movements 1 Estimated Stool Amount Medium Labs: no new labs Abx: ceftriaxone, flagyl Drain output: ~50 cc x 24 hr Physical exam: abd soft, minimally tender over drain site, purulent fluid in drain A/P: 47 M with intraabdominal abscess, doing well. - Appreciate Dr. Chapa's recommendations regarding antibiotics, patient will have IV ceftriaxone/PO flagyl - Discussed with Dr. العراقي yesterday, plan for repeat CT abd/pelvis Sunday to assess intraabd abscess, possibly drain can be removed or repositioned if necessary. Output is dropping and patient remains clinically well.
[2018-04-12] MEDS: Nicotine Patch Removal NOTE FOLLOW UP SCH (21:00)
[2018-04-13] MEDS: oxyCODONE/Acetamin 5/325 MG* TAB PO PRN ×6 (03:58→21:09)
[2018-04-13] MEDS: Nicotine Inhaler* 10 MG AMP INH PRN ×4 (07:05→21:09)
[2018-04-13] MEDS: Nicotine PATCH 21 MG/24 HR* PATCH TRANSDERM SCH (07:59)
[2018-04-13] MEDS: metroNIDAZOLE TAB* 250 MG PO SCH ×2 (09:10→21:09)
--- NOTE | 2018-04-13 09:12 | PN ---
Progress Note - Progress Note Date of Service: 04/13/18 Note: Surgery Progress Note S: Patient doing well, no complaints. Abd pain improving, eating without difficulty. Remains afebrile. O: Vital Signs: Temp Pulse Resp BP Pulse Ox 97.7 F 59 18 120/71 98 04/13/18 03:55 04/13/18 03:55 04/13/18 07:05 04/13/18 03:55 04/13/18 03:55 Intake & Output 04/12/18 04/13/18 04/13/18 22:59 06:59 14:59 Intake Total 600 500 Output Total 510 1010 225 Balance 90 -510 -225 Intake: Oral 600 500 Output: Pigtail Drain 10 10 Urine 500 1000 225 Other: Estimated Stool Amount Small Small Labs: no new labs I/O: drain output x 24 hr ~36cc Abx: ceftriaxone, flagyl Physical exam: abd soft, less distended, minimally tender around drain A/P: 47M with intraadbominal abscess sp perc drainage, doing well. - Plan for CT abd/pelvis Sunday, if collections have largely resolved and drain output remains low will remove drain and patient can be DC'ed with plan for outpatient IV abx and outpatient colonoscopy
[2018-04-13] MEDS: cefTRIAXone(*) 1 GM in NS 0.9% 50 ML* 50 ML IVPB SCH (11:11)
--- NOTE | 2018-04-13 15:34 | PN ---
Subjective Date of Service: 04/13/18 Interval History: Mild pain with BM, no other c/o. Appetite good. Objective Active Medications: Acetaminophen (Tylenol Tab*) 650 mg PO Q6H PRN PRN Reason: PAIN Last Admin: 04/11/18 09:39 Dose: 650 mg Device (Nicotine Mouth Piece*) 1 each INH Q2H PRN PRN Reason: CRAVINGS Last Admin: 04/07/18 22:53 Dose: 1 each Ceftriaxone Sodium 1 gm/ (Sodium Chloride) 50 mls @ 200 mls/hr IVPB Q24H [facility] Last Admin: 04/13/18 11:11 Dose: 200 mls/hr Metronidazole (Flagyl Tab*) 500 mg PO BID [facility] Last Admin: 04/13/18 09:10 Dose: 500 mg Morphine Sulfate (Morphine Vial*) 5 mg IV Q3H PRN PRN Reason: PAIN Last Admin: 04/09/18 05:21 Dose: 5 mg Nicotine (Nicotine Inhaler*) 10 mg INH Q2H PRN PRN Reason: CRAVING Last Admin: 04/13/18 14:30 Dose: 10 mg Nicotine (Nicotine Patch 21 Mg/24 Hr*) 1 patch TRANSDERM 0900 [facility] Last Admin: 04/13/18 07:59 Dose: Not Given Ondansetron HCl (Zofran Inj*) 4 mg IV Q6H PRN PRN Reason: NAUSEA Oxycodone/Acetaminophen (Percocet 5/325 Tab*) 1 tab PO Q3H PRN PRN Reason: PAIN - MODERATE Last Admin: 04/13/18 14:30 Dose: 1 tab Pharmacy Profile Note (Nicotine Patch Removal Note*) 1 note FOLLOW UP 2100 [facility] Last Admin: 04/12/18 21:00 Dose: Not Given Vital Signs - 8 hr 04/13/18 04/13/18 04/13/18 08:00 08:09 09:12 Temperature 97.3 F Pulse Rate 57 Respiratory 16 18 16 Rate Blood Pressure 119/75 (mmHg) O2 Sat by Pulse 98 Oximetry 04/13/18 04/13/18 04/13/18 11:10 11:35 13:10 Temperature 97.9 F Pulse Rate 62 Respiratory 16 18 16 Rate Blood Pressure 108/66 (mmHg) O2 Sat by Pulse 98 Oximetry 04/13/18 14:30 Temperature Pulse Rate Respiratory 16 Rate Blood Pressure (mmHg) O2 Sat by Pulse Oximetry Oxygen Devices in Use Now: None Appearance: Alert, in a chair. In good spirits. Looks comfortable Eyes: No Scleral Icterus Extremities: No Edema, No Clubbing, Cyanosis, - Skin: No Rash or Ulcers, No Nodules or Sclerosis, - Neurological: Alert and Oriented x 3, NL Sensation Result Diagrams: 04/10/18 05:00 04/10/18 05:00 Additional Lab and Data: Lab Results 04/07/18 Range/Units 12:32 WBC 14.8 H (3.5-10.8) 10^3/ul RBC 4.41 (4.00-5.40) 10^6/ul Hgb 13.4 L (14.0-18.0) g/dl Hct 40 L (42-52) % MCV 91 (80-94) fL MCH 31 (27-31) pg MCHC 34 (31-36) g/dl RDW 14 (10.5-15) % Plt Count 323 (150-450) 10^3/ul MPV 8.5 (7.4-10.4) fL Neut % (Auto) Pending Lymph % (Auto) Pending [place] % (Auto) Pending Eos % (Auto) Pending Baso % (Auto) Pending Absolute Neuts (auto) Pending Absolute Lymphs (auto) Pending Absolute Monos (auto) Pending Absolute Eos (auto) Pending Absolute Basos (auto) Pending Absolute Nucleated RBC Pending Nucleated RBC % Pending Microbiology and Other Data: Microbiology 04/08/18 11:30 Gram Stain - Final Misc Fluid (See Comment) - Abscess Skin and Soft Tissue MRSA/MSSA (PCR - Final Mrsa Negative S.aureus Negative Assess/Plan/Problems-Billing Assessment: This is a 47 year old man with no medical history who presented with 8-9 days of worsening abdominal pain and was found to have an intraabdominal abscess - Patient Problems (1) Intra-abdominal abscess Current Visit: Yes Status: Acute Code(s): K65.1 - PERITONEAL ABSCESS SNOMED Code(s): 42770995 Comment: s/p drain 04/08/19 with IR. cultures growing strep, B. fragilis. Dr. Kwon's consult appreciated. Continue ceftriaxone/metro. Discussed with Dr. Chapa. He can be treated as an outpt with ceftriaxone IV once daily and po metronidazole. Discussed with Dr. Clarke. Plan CT 04/15, consider remoivng drain and d/c home if no further darinage needed. (2) Tobacco abuse Current Visit: Yes Status: Acute Code(s): Z72.0 - TOBACCO USE SNOMED Code( s): 129572881 Comment: Pt advised to quit smoking and avoid second hand smoke.
[2018-04-13] MEDS: Nicotine Patch Removal NOTE FOLLOW UP SCH (21:10)
[2018-04-14] MEDS: oxyCODONE/Acetamin 5/325 MG* TAB PO PRN ×7 (01:16→22:06)
[2018-04-14] MEDS: Nicotine Inhaler* 10 MG AMP INH PRN ×4 (08:26→22:07)
[2018-04-14] MEDS: metroNIDAZOLE TAB* 250 MG PO SCH ×2 (09:22→22:06)
[2018-04-14] MEDS: Nicotine PATCH 21 MG/24 HR* PATCH TRANSDERM SCH (09:24)
--- NOTE | 2018-04-14 09:55 | PN ---
Subjective Date of Service: 04/14/18 Interval History: Doing well, afebrile. Objective Active Medications: Acetaminophen (Tylenol Tab*) 650 mg PO Q6H PRN PRN Reason: PAIN Last Admin: 04/11/18 09:39 Dose: 650 mg Device (Nicotine Mouth Piece*) 1 each INH Q2H PRN PRN Reason: CRAVINGS Last Admin: 04/07/18 22:53 Dose: 1 each Heparin Sodium (Porcine) (Heparin Flush(*)) 5 ml IV FLUSH 0600,1800 [facility] Last Admin: 04/14/18 09:22 Dose: Not Given Ceftriaxone Sodium 1 gm/ (Sodium Chloride) 50 mls @ 200 mls/hr IVPB Q24H [facility] Last Admin: 04/13/18 11:11 Dose: 200 mls/hr Metronidazole (Flagyl Tab*) 500 mg PO BID [facility] Last Admin: 04/14/18 09:22 Dose: 500 mg Nicotine (Nicotine Inhaler*) 10 mg INH Q2H PRN PRN Reason: CRAVING Last Admin: 04/14/18 08:26 Dose: 10 mg Nicotine (Nicotine Patch 21 Mg/24 Hr*) 1 patch TRANSDERM 0900 [facility] Last Admin: 04/14/18 09:24 Dose: Not Given Ondansetron HCl (Zofran Inj*) 4 mg IV Q6H PRN PRN Reason: NAUSEA Oxycodone/Acetaminophen (Percocet 5/325 Tab*) 1 tab PO Q3H PRN PRN Reason: PAIN - MODERATE Last Admin: 04/14/18 08:26 Dose: 1 tab Pharmacy Profile Note (Nicotine Patch Removal Note*) 1 note FOLLOW UP 2100 [facility] Last Admin: 04/13/18 21:10 Dose: Not Given Vital Signs - 8 hr 04/14/18 04/14/18 04/14/18 03:35 03:53 04:20 Temperature 97.4 F Pulse Rate 64 Respiratory 16 16 16 Rate Blood Pressure 116/63 (mmHg) O2 Sat by Pulse 97 Oximetry 04/14/18 04/14/18 07:59 08:26 Temperature 97.9 F Pulse Rate 59 Respiratory 16 16 Rate Blood Pressure 104/71 (mmHg) O2 Sat by Pulse 99 Oximetry Oxygen Devices in Use Now: None Appearance: Sitting on bed, not in distress. Respiratory: Clear to Auscultation Cardiovascular: RRR Skin: - - At the lower abdomen, wound drain is in place, draining serosanguinious. Lines/Tubes/Other Access: Clean, Dry and Intact PICC Line - R arm Result Diagrams: 04/10/18 05:00 04/10/18 05:00 Additional Lab and Data: Lab Results 04/07/18 Range/Units 12:32 WBC 14.8 H (3.5-10.8) 10^3/ul RBC 4.41 (4.00-5.40) 10^6/ul Hgb 13.4 L (14.0-18.0) g/dl Hct 40 L (42-52) % MCV 91 (80-94) fL MCH 31 (27-31) pg MCHC 34 (31-36) g/dl RDW 14 (10.5-15) % Plt Count 323 (150-450) 10^3/ul MPV 8.5 (7.4-10.4) fL Neut % (Auto) Pending Lymph % (Auto) Pending [place] % (Auto) Pending Eos % (Auto) Pending Baso % (Auto) Pending Absolute Neuts (auto) Pending Absolute Lymphs (auto) Pending Absolute Monos (auto) Pending Absolute Eos (auto) Pending Absolute Basos (auto) Pending Absolute Nucleated RBC Pending Nucleated RBC % Pending Microbiology and Other Data: Microbiology 04/08/18 11:30 Gram Stain - Final Misc Fluid (See Comment) - Abscess Skin and Soft Tissue MRSA/MSSA (PCR - Final Mrsa Negative S.aureus Negative Assess/Plan/Problems-Billing Assessment: This is a 47 year old man with no medical history who presented with 8-9 days of worsening abdominal pain and was found to have an intraabdominal abscess, status post pig tail catheter. Cultures growing mutlibacterial species, getting IV rocephin, PO flagyl. - Patient Problems (1) Intra-abdominal abscess Current Visit: Yes Status: Acute Code(s): K65.1 - PERITONEAL ABSCESS SNOMED Code(s): 34400641 Comment: s/p drain 04/08/19 with IR. cultures growing strep, B. fragilis. Dr. Kwon's consult appreciated. Continue ceftriaxone/metro. Discussed with Dr. Chapa. He can be treated as an outpt with ceftriaxone IV once daily and po metronidazole. Discussed with Dr. Clarke. Plan CT 04/15, consider remoivng drain and d/c home if no further darinage needed. (2) Nicotine dependence Current Visit: Yes Status: Acute Code(s): F17.200 - NICOTINE DEPENDENCE, UNSPECIFIED, UNCOMPLICATED SNOMED Code(s): 85193717 Comment: no withdrawal symptoms on nicotine inhalers
[2018-04-14] MEDS: cefTRIAXone(*) 1 GM in NS 0.9% 50 ML* 50 ML IVPB SCH (12:14)
[2018-04-14] MEDS: Nicotine Patch Removal NOTE FOLLOW UP SCH (22:07)
[2018-04-15] MEDS: oxyCODONE/Acetamin 5/325 MG* TAB PO PRN ×3 (01:37→11:54)
[2018-04-15] MEDS: Nicotine Inhaler* 10 MG AMP INH PRN ×3 (01:40→11:53)
[2018-04-15] MEDS: Nicotine PATCH 21 MG/24 HR* PATCH TRANSDERM SCH (08:53)
[2018-04-15] MEDS ORDERED: Iohexol 300* (CONTRAST) 10 ML SDV IV ONE (09:24)
--- NOTE | 2018-04-15 10:28 | PN ---
Subjective Date of Service: 04/15/18 Interval History: Doing well, remained afebrile. Objective Active Medications: Acetaminophen (Tylenol Tab*) 650 mg PO Q6H PRN PRN Reason: PAIN Last Admin: 04/11/18 09:39 Dose: 650 mg Device (Nicotine Mouth Piece*) 1 each INH Q2H PRN PRN Reason: CRAVINGS Last Admin: 04/07/18 22:53 Dose: 1 each Heparin Sodium (Porcine) (Heparin Flush Picc/Ml/Cvc(*)) 1 ml FLUSH 0600,1800 [facility]; Protocol Last Admin: 04/15/18 04:47 Dose: 1 ml Ceftriaxone Sodium 1 gm/ (Sodium Chloride) 50 mls @ 200 mls/hr IVPB Q24H [facility] Last Admin: 04/14/18 12:14 Dose: 200 mls/hr Metronidazole (Flagyl Tab*) 500 mg PO BID [facility] Last Admin: 04/14/18 22:06 Dose: 500 mg Nicotine (Nicotine Inhaler*) 10 mg INH Q2H PRN PRN Reason: CRAVING Last Admin: 04/15/18 04:46 Dose: 10 mg Nicotine (Nicotine Patch 21 Mg/24 Hr*) 1 patch TRANSDERM 0900 [facility] Last Admin: 04/15/18 08:53 Dose: Not Given Ondansetron HCl (Zofran Inj*) 4 mg IV Q6H PRN PRN Reason: NAUSEA Oxycodone/Acetaminophen (Percocet 5/325 Tab*) 1 tab PO Q3H PRN PRN Reason: PAIN - MODERATE Last Admin: 04/15/18 04:39 Dose: 1 tab Pharmacy Profile Note (Nicotine Patch Removal Note*) 1 note FOLLOW UP 2100 [facility] Last Admin: 04/14/18 22:07 Dose: Not Given Vital Signs - 8 hr 04/15/18 04/15/18 04/15/18 04:05 04:39 04:40 Temperature 98.2 F Pulse Rate 78 Respiratory 16 16 16 Rate Blood Pressure 122/75 (mmHg) O2 Sat by Pulse 98 Oximetry 04/15/18 04/15/18 04/15/18 07:34 08:00 08:53 Temperature 97.4 F Pulse Rate 71 Respiratory 16 18 20 Rate Blood Pressure 147/81 (mmHg) O2 Sat by Pulse 99 Oximetry Oxygen Devices in Use Now: None Appearance: Sitting on chair, not in distress Eyes: PERRLA Ears/Nose/Mouth/Throat: Mucous Membranes Moist Respiratory: Clear to Auscultation Cardiovascular: NL Sounds; No Murmurs; No JVD, RRR Abdominal: - - Dressing at lower abdomen in place, with drain in place, draining scant sanguinious discharge Neurological: Alert and Oriented x 3 Result Diagrams: 04/10/18 05:00 04/10/18 05:00 Additional Lab and Data: Lab Results 04/07/18 Range/Units 12:32 WBC 14.8 H (3.5-10.8) 10^3/ul RBC 4.41 (4.00-5.40) 10^6/ul Hgb 13.4 L (14.0-18.0) g/dl Hct 40 L (42-52) % MCV 91 (80-94) fL MCH 31 (27-31) pg MCHC 34 (31-36) g/dl RDW 14 (10.5-15) % Plt Count 323 (150-450) 10^3/ul MPV 8.5 (7.4-10.4) fL Neut % (Auto) Pending Lymph % (Auto) Pending [place] % (Auto) Pending Eos % (Auto) Pending Baso % (Auto) Pending Absolute Neuts (auto) Pending Absolute Lymphs (auto) Pending Absolute Monos (auto) Pending Absolute Eos (auto) Pending Absolute Basos (auto) Pending Absolute Nucleated RBC Pending Nucleated RBC % Pending Microbiology and Other Data: Microbiology 04/08/18 11:30 Gram Stain - Final Misc Fluid (See Comment) - Abscess Skin and Soft Tissue MRSA/MSSA (PCR - Final Mrsa Negative S.aureus Negative Assess/Plan/Problems-Billing Assessment: This is a 47 year old man with no medical history who presented with 8-9 days of worsening abdominal pain and was found to have an intraabdominal abscess, status post pig tail catheter. Cultures growing mutlibacterial species, getting IV rocephin, PO flagyl. - Patient Problems (1) Intra-abdominal abscess Current Visit: Yes Status: Acute Code(s): K65.1 - PERITONEAL ABSCESS SNOMED Code(s): 20319450 Comment: s/p drain 04/08/19 with IR. cultures growing strep, B. fragilis. Dr. Kwon's consult appreciated. Continue ceftriaxone/metro. Discussed with Dr. Chapa. Repeat CT reveiwed, case discussed with ID and surgery- plan for outpatient abx- oral antibiotics since the CT has improved significantly, and drain has been removed. (2) Nicotine dependence Current Visit: Yes Status: Acute Code(s): F17.200 - NICOTINE DEPENDENCE, UNSPECIFIED, UNCOMPLICATED SNOMED Code(s): 99649308 Comment: no withdrawal symptoms on nicotine inhalers
[2018-04-15] MEDS: cefTRIAXone(*) 1 GM in NS 0.9% 50 ML* 50 ML IVPB SCH (11:48)
[2018-04-15] MEDS: metroNIDAZOLE TAB* 250 MG PO SCH (11:48)
[2018-04-15 12:16] VITALS: BP 130/76
--- NOTE | 2018-04-15 13:10 | PN ---
Progress Note - Progress Note Date of Service: 04/15/18 Note: Surgery Progress Note S: Patient doing well. No events over weekend. Remains afebrile, drain output dropped significantly. O: Vital Signs: Temp Pulse Resp BP Pulse Ox 98.1 F 78 16 130/76 100 04/15/18 11:56 04/15/18 11:56 04/15/18 11:56 04/15/18 11:56 04/15/18 11:56 Intake & Output 04/14/18 04/15/18 04/15/18 22:59 06:59 14:59 Intake Total 1000 500 Output Total 1020 775 600 Balance -20 -275 -600 Weight 130 lb Intake: Oral 1000 500 Output: Pigtail Drain 20 Urine 1000 775 600 Other: # Bowel Movements 1 Estimated Stool Amount Medium Physical exam: abdomen soft, minimally tender around drain, drain with mostly serosanguinous ouput CT abd: reviewed, final report notes interval resolution of abscess, appendix noted with appendicolith, +diverticulosis A/P: 47 M with intraabdominal abscess, sp perc drainage, doing well. - I removed drain today. - Per ID, will be sent home with PO abx since abscess has completely resolved - Can DC today, fu with GI for colonoscopy. Please follow up with myself after colonoscopy is done in 6-8 weeks. If findings on colonoscopy show no evidence of perforated diverticulitis or IBD, most likely patient had perforated appendicitis and we will discuss performing an interval appendectomy.
[2018-04-15] MEDS ORDERED: oxyCODONE/Acetamin 5/325 MG* TAB PO ONE (13:25)
--- NOTE | 2018-04-15 23:29 | DS ---
CC: [facility], [facility]; Dr. Maricel Clarke, Dr. Chapa. * DISCHARGE SUMMARY: DATE OF ADMISSION: 04/07/18 DATE OF DISCHARGE: 04/15/18 REASON FOR ADMISSION: Abdominal pain. HOSPITAL COURSE: This is a 47-year-old male with past medical history of smoking, who was brought into the hospital because of abdominal pain. In the emergency room, the patient was found to have right midline peritoneal abscess, wall thickening of the terminal ileum and the sigmoid colon. The appendix is not discretely identified. The patient was found to have abdominal abscess, surgical consultation from Dr. Clarke was obtained. The patient on admission was started on Cipro and Flagyl. The patient did not take any home medications, was started on nicotine replacement therapy and was admitted to the medical floor. Surgical consultation was obtained as well as an abdominal ultrasound was obtained which showed corresponding with the CT there is a loculated fluid collection in the midline pelvis measuring 6.4 x 7.1 x 5.1 cm. The patient subsequently underwent drainage and specimen was sent. The drainage was via IR and the specimen was sent. Cultures then grew Strep anginosus, Bacteroides fragilis and E. coli, and the patient was started on Rocephin and Flagyl. Infectious Diseases consult was also obtained. The patient underwent a repeat CAT scan on 04/15/18, which showed interval resolution of the peritoneal abscess in the presence of a right midline percutaneous 10-Fijian pigtail drainage. A 3 mm appendicolith in the midportion as well as persistent wall thickening of the sigmoid colon and the presence of multiple diverticula. Based on these findings, diverticulitis is favored upon appendicitis. The day of the discharge, which is today, 04/15/18, myself as well as Dr. Maricel Clarke as well as Dr. Shaun Chapa, infectious diseases physician, we met together and decided that the patient's drain can come out and the patient can be discharged on oral antibiotics rather than IV because there was a considerable improvement in the CAT scan. The PICC line that was placed was removed. Subsequently, the plan was to discharge the patient on Augmentin for 10 further days. PHYSICAL EXAMINATION: For physical examination from today, please see my progress note. CONDITION ON DISCHARGE: Fair and stable. DISCHARGE PLAN: The patient to be discharged home. DISCHARGE MEDICATIONS: Include: 1. Amoxicillin 875/125 twice a day for the next 10 days, 20 tablets were sent. 2. Nicotine inhaler 10 mg every 8 hours as needed for withdrawal and craving. 3. Omeprazole 20 mg daily. This was patient's home medication. The patient was also given a work release form, to resume work on 04/22/18. The patient's referral for [facility] gastroenterology provider group for 4 to 6 weeks as he requires a colonoscopy, surgical associates as well as [facility] as the patient does not have a primary care provider. DISCHARGE DIAGNOSES: 1. Intraabdominal abscess, multi-bacterial. 2. Suspected diverticulitis causing the abscess. ADDITIONAL DIAGNOSIS: Include smoking. [id number]/CPS #: [id number] APRIL
== END 2018-04-15 15:00 | disposition home or self-care (01) | DRG 248 ==
LOC: ED 11:44 → SSU 20:04
PROVIDERS: ADMIT Internal Medicine; ATTEND Internal Medicine
PROC: 0W9G30Z Drainage of Peritoneal Cavity with Drainage Device, Percutaneous Approach (ICD-10-PCS; principal; 2018-04-08)
DX: K65.1 Peritoneal abscess (principal); K57.20 Diverticulitis of large intestine with perforation and abscess without bleeding; B95.7 Other staphylococcus as the cause of diseases classified elsewhere; B96.20 Unspecified Escherichia coli [E. coli] as the cause of diseases classified elsewhere; B96.6 Bacteroides fragilis [B. fragilis] as the cause of diseases classified elsewhere; F17.210 Nicotine dependence, cigarettes, uncomplicated; F12.90 Cannabis use, unspecified, uncomplicated; R79.1 Abnormal coagulation profile; Z80.1 Family history of malignant neoplasm of trachea, bronchus and lung; Z80.0 Family history of malignant neoplasm of digestive organs; Z83.3 Family history of diabetes mellitus; Z72.89 Other problems related to lifestyle
CPT/HCPCS: 36415; 74177; 75989; 76705; 80048; 80053; 83605; 83690; 85025; 85610; 86140; 87040; 87070; 87076; 87077; 87185; 87186; 87205; 87640; 87641; 88112; 99284; A9270-GY; J0696; J0744; J1642; J1885; J2270; J2405; J3010; J3490; Q9967

== ENCOUNTER 2018-07-26 07:08 | Inpatient (IN) | payer OTHER ==
--- NOTE | 2018-07-15 06:56 | HP ---
CC: Dr. Lama; Dr. Kwon * ADMISSION HISTORY AND PHYSICAL: DATE OF ADMISSION: 07/26/18 ATTENDING SURGEON: Dr. Maricel Clarke.* (DICTATED BY EMELIA CROWLEY) CHIEF COMPLAINT: Sigmoid colon stricture. HISTORY OF PRESENT ILLNESS: This is a 48-year-old male smoker who at the end of March into early April 2018 was admitted to [facility] for symptoms that led to a finding of an intraabdominal abscess. He underwent percutaneous drainage of the abscess with culture and sensitivity showing mixed bacterial infection. This responded well to antibiotic treatment and the drainage procedure. A repeat CT scan on 04/15/18 showed resolution of the abscess. Other findings included persistent sigmoid colon thickening and an appendicolith. Also, multiple sigmoid diverticula were noted. The patient completed a course of Augmentin. Since that time, he has continued to have intermittent right lower quadrant pain typically a couple times a week, usually fairly fleeting in nature and most often in the mornings. He describes 2 to 3 bowel movements per day, sometimes pencil thin and sometimes liquid. He has had two occasions where he has passed some blood with the stool. He denies fever or chills. He has a good appetite and actually has been gaining some weight. He did have an attempted colonoscopy on 06/17/18, but the scope was unable to be advanced past 30 cm. There was a rectal polyp removed (tubular adenoma). The biopsies at the point of obstruction were nondiagnostic. A subsequent virtual colonoscopy was performed on 06/24/18. This showed a 7 cm length of circumferential sigmoid colon narrowing. However, no significant amount of CO2 was able to be insufflated and therefore, the study was incomplete. Differential by the radiologist was felt to include inflammatory bowel disease, neoplasm, and chronic diverticulitis. The patient has been seen in the office by Dr. Clarke on 06/19/18 and more recently on 07/10/18. She has discussed with him the indications for surgery, the risks, benefits, and alternatives and the expected perioperative course. The patient understands all of these issues and would like to proceed as scheduled with laparoscopic, possible open, sigmoid colectomy with possible ostomy. PAST MEDICAL HISTORY: He is an active smoker, who is gradually trying to quit. PAST SURGICAL HISTORY: His only prior surgery is facial plastic surgery at the age of 1 after an accident. CURRENT MEDICATIONS: 1. Nicotrol inhaler p.r.n. (2 to 3 times per day). 2. Simethicone p.r.n. (has not been using lately). DRUG ALLERGIES: None known. FAMILY HISTORY: Positive for colorectal cancer in a maternal uncle and also maternal grandfather. No known family history of anesthesia problems, bleeding or clotting disorders. SOCIAL HISTORY: The patient lives with a friend. He has 2 grown children. 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 He has been homeless in the past. He currently smokes approximately 15 cigarettes per day (with a 31-vpzq-vgbz history). He drinks on the average 2 to 4 drinks per day and smokes marijuana 1 to 3 times per day. He denies any other recreational drug use. REVIEW OF SYSTEMS: General: No recent constitutional symptoms or acute illnesses, other than described in the HPI. HEENT: No problems reported. Cardiovascular: He reports having a murmur as a child, but this has not been noted as an adult. No chest pain or palpitations. Respiratory: No history of asthma, chronic cough, or shortness of breath. He is an active smoker who is trying to quit. GI: As above, per HPI. No additions. : No problems reported. Endocrine: No diabetes or thyroid dysfunction. PHYSICAL EXAMINATION GENERAL: A well-nourished, well-developed male in no acute distress. VITAL SIGNS: Height 65 inches, weight 131 pounds. Temperature 98.4, blood pressure 128/78, pulse 80, respirations 16. HEENT: Pupils are equal, round, and reactive. EOMs intact. No conjunctival pallor. Oropharynx: Some missing teeth, remaining teeth in fair to good condition. No intraoral lesions. NECK: No lymphadenopathy, thyromegaly, or masses. LUNGS: Clear to auscultation. No rales or wheezes. HEART: Regular rate and rhythm. No murmur noted. ABDOMEN: Soft, mild tenderness in right lower quadrant without rebound or guarding. No palpable masses or organomegaly. GENITALIA: Not examined. RECTAL: Not done. BACK: No spinous process or CVA tenderness. EXTREMITIES: No edema. NEUROLOGICAL: Grossly intact. SKIN: Warm and dry. No suspicious rashes or lesions. IMPRESSION: Sigmoid colon stricture (with history of intraabdominal abscess). PLAN: Laparoscopic, possible open sigmoid colectomy, possible ostomy. EMELIA CROWLEY [id number]/[facility] #: [id number] [facility]
[~2018-07-26 07:08] MED LIST: Buffered Lidocaine 1% SYRIN* 1 ML/SYRINGE INTRADERM ONE; ERTApenem(*) 1 GM in NS 0.9% 50 ML* 50 ML IVPB SCH; Heparin VIAL(*) 5000 UNITS/ML VIAL (FIVE THOUSAND) ONE; Lactated Ringers 1000 ML Bag* 1,000 ML IV SCH; Sodium Citrate/Citric Acid* 15 ML UDC ONE; Sodium Citrate/Citric Acid* 15 ML UDC PO ONE
--- OUTSIDE RECORDS SUMMARY | 2018-07-26 07:10 | XMS REPORT | Continuity of Care Document ---
:1970 External Reference #:[id number] Author Name Ayala Rogel Care Team Providers Name Role Phone Vickie Lama MD Primary Care Physician Unavailable Payers Date Identification Numbers Payment Provider Subscriber Effective: 2018 Policy Number: [id number] [place] Chandler Milton PayID: [id number] [address] [place] [address] Expires: 2018 Policy Number: [id number] Medicaid Chandler Milton Group Name: 1 1 [address] PayID: [id number] [place] [address] Advance Directives Description No Information Available Problems Date Description Provider Status Onset: 05/20/2018 Right lower quadrant pain Ramon Gutierrez MD Active Onset: 04/26/2018 Screening for malignant neoplasm of colon Ramon Gutierrez MD Active Onset: 04/26/2018 Alcohol-induced psychosis Ramon Gutierrez MD Active Onset: 04/26/2018 Tobacco user Ramon Gutierrez MD Active Onset: 04/26/2018 Abscess of peritoneum Ramon Gutierrez MD Active Family History Date Family Member(s) Observation Comments Father due to Lung Cancer () Social History Type Date Description Comments Sex Unknown Marital Status Single Lives With friend Occupation Unemployed ETOH Use Currently consumes alcohol Tobacco Use Start: Unknown Patient is a current smoker, smokes every day Tobacco Use Start: Unknown Light tobacco smoker (10 or fewer cigarettes/day) Smoking Status Reviewed: 07/10/18 Light tobacco smoker (10 or fewer cigarettes/day) Allergies, Adverse Reactions, Alerts Description No Known Drug Allergies Medications Medication Date Status Form Strength Qnty SIG Indications Ordering Provider Chelsea Active Chewtabs 80mg 30uni 1 tab every R10.31 Ramon 9 ts 6 hours as MD Matt needed bloating Nicotrol Active Inhaler 10mg 1 Unknown 0 cartridges every 2 hours as needed Thiamine HCL Hx Tablets 100mg 30tab 1 by mouth F10.99 Ramon 9 - s every day MD Matt Unknown Folic Acid Hx Tablets 1mg 30tab 1 by mouth F10.99 Ramon 9 - s every day MD Matt Unknown Augmentin Hx Tablets 875-125mg 20tab Take 1 tab Other 9 - s bid Ordering Provider 9 Amoxicillin Hx Tablets 875mg 1 by mouth Unknown 0 - twice a day X10 days [address] H[address] 20mg 1 by mouth Unknown 0 - twice a day 9 Immunizations Description No Information Available Vital Signs Date Vital Result Comment 07/10/2018 1:31pm Height 65 inches 5'5" Weight 131.00 lb Heart Rate 80 /min BP Systolic 140 mmHg BP Diastolic 80 mmHg Respiratory Rate 16 /min Body Temperature 98.4 F BMI (Body Mass Index) 21.8 kg/m2 06/19/2018 1:43pm Height 65 inches 5'5" Weight 131.00 lb Heart Rate 80 /min BP Systolic 140 mmHg BP Diastolic 90 mmHg Respiratory Rate 18 /min Body Temperature 96.7 F BMI (Body Mass Index) 21.8 kg/m2 05/20/2018 1:02pm Weight 132.00 lb Heart Rate 72 /min BP Systolic 152 mmHg BP Diastolic 94 mmHg Respiratory Rate 16 /min Body Temperature 97.0 F O2 % BldC Oximetry 97 % 04/26/2018 1:02pm Height 65 inches 5'5" Weight 127.00 lb Heart Rate 76 /min BP Systolic 122 mmHg BP Diastolic 80 mmHg Respiratory Rate 16 /min Body Temperature 98.8 F O2 % BldC Oximetry 98 % BMI (Body Mass Index) 21.1 kg/m2 Results Test Date Facility Test Result H/L Range Note Laboratory test 05/20/2018 [facility] C Reactive 1.79 mg/L N < 8.01 [address] [place] [address] [phone] CBC Auto Diff 05/20/2018 [facility] White Blood 6.1 10^3/uL N 3.5-10.[address] [place] [address] [phone] Red Blood Count 4.58 10^6/uL N 4.00-5.40 Hemoglobin 14.0 g/dL N 14.0-18.0 Hematocrit 42 % N 42-52 Mean Corpuscular Volume 91 fL N 80-94 Mean Corpuscular Hemoglobin 31 pg N 27-31 Mean Corpuscular HGB Conc 34 g/dL N 31-36 Red Cell Distribution Width 16 % High 10.5-15 Platelet Count 218 10^3/uL N 150-450 Mean Platelet Volume 9.3 fL N 7.4-10.4 Abs Neutrophils 3.7 10^3/uL N 1.5-7.7 Abs Lymphocytes 1.7 10^3/uL N 1.0-4.8 Abs Monocytes 0.5 10^3/uL N 0-0.8 Abs Eosinophils 0.2 10^3/uL N 0-0.6 Abs Basophils 0 10^3/uL N 0-0.2 Abs Nucleated RBC 0 10^3/uL Granulocyte % 60.7 % Lymphocyte % 28.5 % Monocyte % 7.9 % Eosinophil % 2.6 % Basophil % 0.3 % Nucleated Red Blood Cells % 0 Laboratory test 04/26/2018 [facility] C Reactive 1.85 mg/L N < 8.[address] [place] [address] [phone] CBC Auto Diff 04/26/2018 [facility] White Blood 6.7 N 3.5- 10.[address] Count 10^3/[place] [address] [phone] Red Blood Count 4.45 10^6/uL N 4.00-5.40 Hemoglobin 13.5 g/dL Low 14.0-18.0 Hematocrit 40 % Low 42-52 Mean Corpuscular Volume 90 fL N 80-94 Mean Corpuscular Hemoglobin 30 pg N 27-31 Mean Corpuscular HGB Conc 34 g/dL N 31-36 Red Cell Distribution Width 15 % N 10.5-15 Platelet Count 232 10^3/uL N 150-450 Mean Platelet Volume 9.8 fL N 7.4-10.4 Abs Neutrophils 3.6 10^3/uL N 1.5-7.7 Abs Lymphocytes 2.2 10^3/uL N 1.0-4.8 Abs Monocytes 0.5 10^3/uL N 0-0.8 Abs Eosinophils 0.3 10^3/uL N 0-0.6 Abs Basophils 0 10^3/uL N 0-0.2 Abs Nucleated RBC 0 10^3/uL Granulocyte % 53.6 % Lymphocyte % 33.4 % Monocyte % 8.1 % Eosinophil % 4.4 % Basophil % 0.5 % Nucleated Red Blood Cells % 0 1 Copy Result to: Ramon GUTIERREZ ([id number]) Procedures Date Code Description Status 06/17/2018 [id number] Colonoscopy Completed Encounters Type Date Location Provider Dx Diagnosis Office Visit 06/19/2018 [facility] Maricel Clarke MD K65.1 Peritoneal abscess 1:15p [facility] Office Visit 05/20/2018 [facility] Ramon Gutierrez MD R10.31 Right lower 1:00p [facility] quadrant pain F17.200 Nicotine dependence, unspecified, uncomplicated K65.1 Peritoneal abscess F10.99 Alcohol use, unsp with unspecified alcohol-induced disorder Office Visit 04/26/2018 1:00p [facility] Ramon Gutierrez K65.1 Peritoneal [facility] MD abscess F17.200 Nicotine dependence, unspecified, uncomplicated Z12.11 Encounter for screening for malignant neoplasm of colon Office Visit 04/15/2018 9:43a [facility] Katie K65.1 Peritoneal Assoc,deyanira Walter MD abscess Hospitalists Office Visit 04/15/2018 7:00a [facility] Maricel Clarke MD K65.1 Peritoneal [facility] abscess Office Visit 04/14/2018 9:43a [facility] Katie K65.1 Peritoneal Assoc,pc MD Saba abscess Hospitalists F17.200 Nicotine dependence, unspecified, uncomplicated Office Visit 04/13/2018 9:42a [facility] Zackery K65.1 Peritoneal Assoc,deyanira العراقي M.D. abscess Hospitalists Z72.0 Tobacco use Office Visit 04/13/2018 7:00a [facility] Maricel Clarke MD K65.1 Peritoneal [facility] abscess Office Visit [facility]/12[facility]2018 [facility],pc Nohelia العراقي abscess Hospitalists Z72.0 Tobacco use Office Visit 04/12/2018 7:00a [facility] Maricel Clarke MD K65.1 Peritoneal [facility] abscess Office Visit 04/11/2018 10:43a [facility] Cecilia Win K65.1 Peritoneal Infectious Diseases Nohelia Davis abscess Office Visit 04/11/2018 9:42a [facility] Zackery K65.1 Peritoneal Assoc,pc Nohelia العراقي abscess Hospitalists Z72.0 Tobacco use Office Visit 04/11/2018 7:00a [facility] Mar[facility]el Clarke MD K65.1 Peritoneal [facility] abscess Office Visit 04/10/2018 7:00a [facility] Mar[facility] Clarke MD K65.1 Peritoneal [facility] abscess Office Visit 04/10/2018 9:42a [facility] Zackery K65.1 Peritoneal Assoc,pc Nohelia العراقي abscess Hospitalists Z72.0 Tobacco use Office Visit 04/09/2018 7:00a [facility] Nicanor Boss K65.1 Peritoneal [facility] MD FACS abscess Office Visit 04/09/2018 9:41a [facility] Kaya K65.1 Peritoneal Assoc,pc Senbonnie, abscess Hospitalists F17.200 Nicotine dependence, unspecified, uncomplicated Office Visit 04/08/2018 7:00a [facility] Mar[facility]el Clarke MD K65.1 Peritoneal [facility] abscess Office Visit 04/08/2018 9:41a [facility] Kaya K65.1 Peritoneal Assoc,pc Senbonnie, DO abscess Hospitalists Office Visit 04/07/2018 9:41a [facility] Alethea Martinez K65.1 Peritoneal Assoc,pc N.P. abscess Hospitalists F17.200 Nicotine dependence, unspecified, uncomplicated F10.99 Alcohol use, unsp with unspecified alcohol-induced disorder Office Visit 04/07/2018 7:00a Surgical Fazal Rojas65.1 Peritoneal [facility] abscess Plan of Treatment Future Appointment(s):07/12/2018 10:00 am - EMELIA Cuevas at [facility]07/10/2018 - Maricel Clarke MDK65.1 Peritoneal abscessFollow up: We will schedule surgery for you, which will be a diagnostic laparoscopy, laparoscopic sigmoidectomy, possible open, possible ostomy and related procedures. Please return for an updated history and physical and for instructions regarding bowel prep. You will return to see me 2 weeks after surgery for a postoperative appointment.
--- OUTSIDE RECORDS SUMMARY | 2018-07-26 07:10 | XMS REPORT | Continuity of Care Document ---
:1970 External Reference #:[id number] Author Name Ayala Rogel Care Team Providers Name Role Phone Vickie Lama MD Primary Care Physician Unavailable Payers Date Identification Numbers Payment Provider Subscriber Effective: 2018 Policy Number: [id number] [place] Chandler Milton PayID: [id number] [address] [place] [address] Expires: 2018 Policy Number: [id number] Medicaid Chandler Milton Group Name: 1 1 [address] PayID: [id number] [place] [address] Advance Directives Description No Information Available Problems [...] (10 or fewer cigarettes/day) Smoking Status Reviewed: 07/12/18 Light tobacco smoker (10 or fewer cigarettes/day) Allergies, Adverse Reactions, Alerts Description No Known Drug Allergies Medications Medication Date Status Form Strength Qnty SIG Indications Ordering Provider Neomycin Active Tablets 500mg 6tabs 2 tabs by Linda Vince Sulfate 9 mouth at 1 Foster, pm, 2 pm, MD and 11 pm the day before surgery Flagyl Active Tablets 500mg 3tabs 1 tab by Linda Clarke 9 mouth at 1 Foster, pm, 2 pm, MD and 11 pm the day before surgery Peg Active Solution 240gm 4000m as directed Linda Clarke 3350/Electrol 9 Rec l the day Foster, ytes before MD surgery Simethicone Active Chewtabs 80mg 30uni 1 tab every [...] Available Vital Signs Date Vital Result Comment 07/12/2018 9:50am Height 65 inches 5'5" Weight 131.00 lb Heart Rate 80 /min BP Systolic 128 mmHg BP Diastolic 78 mmHg Respiratory Rate 16 /min Body Temperature 98.4 F BMI (Body Mass Index) 21.8 kg/m2 07/10/2018 1:31pm Height 65 inches 5'5" Weight [...] Result H/L Range Note Laboratory test 05/20/2018 [facility] C Reactive 1.79 mg/L N < 8.01 [address] [place] [address] [phone] CBC Auto Diff 05/20/2018 [facility] White Blood 6.1 10^3/uL N 3.5-10.[address] [place] [address] [phone] Red Blood Count 4.58 10^6/uL N 4.00-5.40 [...] Blood Cells % 0 Laboratory test 04/26/2018 [facility] C Reactive 1.85 mg/L N < 8.[address] Protein [place], [place] [id number] [phone] CBC Auto Diff 04/26/2018 [facility] White Blood 6.7 N 3.5- 10.[address] Count 10^3/[place] [address] [phone] Red Blood Count 4.45 10^6/uL N 4.00-5.40 [...] 0 1 Copy Result to: Ramon GUTIERREZ ([id number]) Procedures Date Code Description Status 06/17/2018 [id number] Colonoscopy Completed Encounters Type Date Location Provider Dx Diagnosis Office Visit 07/10/2018 [facility] Mar[facility] Clarke MD K65.1 Peritoneal abscess 1:45p [facility] [address] Office Visit 06/19/2018 [facility] Maricel Clarke MD K65.1 Peritoneal abscess 1:15p [facility] [address] Office Visit 05/20/2018 [facility] Ramon Gutierrez MD R10.31 Right lower 1:00p [facility] [address] quadrant pain F17.200 Nicotine dependence, unspecified, uncomplicated K65.1 Peritoneal abscess F10.99 Alcohol use, unsp with unspecified alcohol-induced disorder Office Visit 04/26/2018 1:00p [facility] Ramon Gutierrez K65.1 Peritoneal [facility] [address] MD abscess F17.200 Nicotine dependence, unspecified, uncomplicated Z12.11 Encounter for screening for malignant neoplasm of colon [facility],deyanira Walter MD abscess Hospitalists Office Visit 04/15/2018 7:00a [facility] Maricel Clarke MD K65.1 Peritoneal [facility] [address] abscess Office Visit 04/14/2018 9:43a [facility] Katie K65.1 Peritoneal Assoc,deyanira Walter MD abscess Hospitalists F17.200 Nicotine dependence, unspecified, uncomplicated Office Visit 04/13/2018 9:42a [facility] Zackery K65.1 Peritoneal Assoc,pc Nohelia العراقي abscess Hospitalists Z72.0 Tobacco use Office Visit 04/13/2018 7:00a [facility] Maricel Clarke MD K65.1 Peritoneal [facility] [address] abscess Office Visit 04/12/2018 9:42a [facility] Zackery K65.1 Peritoneal Assoc,deyanira العراقي M.D. abscess Hospitalists Z72.0 Tobacco use Office Visit 04/12/2018 7:00a [facility] Maricel Clarke MD K65.1 Peritoneal [facility] [address] abscess Office Visit [facility]/11[facility] Diseases Nohelia Davis abscess Office Visit 04/11/2018 9:42a [facility] Zackery K65.1 Peritoneal Assoc,deyanira العراقي M.D. abscess Hospitalists Z72.0 Tobacco use Office Visit 04/11/2018 7:00a [facility] Maricel Clarke MD K65.1 Peritoneal [facility] [address] abscess Office Visit 04/10/2018 7:00a [facility] Maricel Clarke MD K65.1 Peritoneal [facility] [address] abscess Office Visit 04/10/2018 9:42a [facility] Zackery K65.1 Peritoneal Assoc,deyanira العراقي M.D. abscess Hospitalists Z72.0 Tobacco use Office Visit 04/09/2018 7:00a [facility] Nicanor Boss K65.1 Peritoneal [facility] [address] MANJEET POZO abscess Office Visit 04/09/2018 9:41a [facility] Kaya K65.1 Peritoneal Assoc,pc DO Sharon abscess Hospitalists F17.200 Nicotine dependence, unspecified, uncomplicated Office Visit 04/08/2018 7:00a [facility] Mar[facility]el Clarke MD K65.1 Peritoneal [facility] [address] abscess Office Visit 04/08/2018 9:41a [facility] Kaya K65.1 Peritoneal Assoc,pc DO Sharon abscess Hospitalists Office Visit 04/07/2018 9:41a [facility] Alethea Martinez K65.1 Peritoneal Assoc,pc N.P. abscess Hospitalists F17.200 Nicotine dependence, unspecified, uncomplicated F10.99 Alcohol use, unsp with unspecified alcohol-induced disorder Office Visit 04/07/2018 7:00a [facility] Maricel Clarke K65.1 Peritoneal [facility] [address] MD abscess Plan of Treatment Future Appointment(s):07/26/2018 9:45 am - Andrey Chapa M.D. at [facility]07/26/2018 9:45 am - Maricel Clarke MD at [facility]
[2018-07-26 08:04] LABS: Activated Partial Thrombo Time 34.5 seconds (26.0-36.3); INR 0.96 (0.77-1.02)
[2018-07-26] MEDS ORDERED: Dexamethasone IV* 4 MG/ML 1 ML (4 MG) ONE (08:20)
[2018-07-26] MEDS ORDERED: fentaNYL* 50 MCG/ML 5 ML VIAL (250 MCG VIAL) ONE (08:20)
[2018-07-26] MEDS ORDERED: Propofol* 10 MG/ML 20 ML BTL ONE (08:20)
[2018-07-26] MEDS ORDERED: Midazolam* 1 MG/ML 2 ML VIAL (2 MG) ONE (08:20)
[2018-07-26] MEDS ORDERED: Rocuronium* 10 MG/ML VIAL ONE (08:21)
[2018-07-26] MEDS ORDERED: Lidocaine 2% PF * 5 ML VIAL ONE (08:21)
[2018-07-26] MEDS ORDERED: Bupivacaine 0.25% SDV PF* 10 ML VIAL INJ ONE ×2 (08:44→13:20)
[2018-07-26] MEDS ORDERED: Labetalol IV* 5 MG/ML 20 ML VIAL ONE (09:02)
[2018-07-26] MEDS ORDERED: KETAMINE HCL* 50 MG/ML 10 ML VIAL ONE (09:24)
[2018-07-26] MEDS ORDERED: DiMENhydriNATE IV* 50 MG/ML VIAL IV PUSH PRN (11:00)
[2018-07-26] MEDS ORDERED: Naloxone* 0.4 MG/ML 1 ML VIAL IV PRN (11:00)
[2018-07-26] MEDS ORDERED: Acetaminophen IV 1GM/100ML * 1,000 MG/100 ML VIAL IVPB ONE (11:00)
[2018-07-26] MEDS ORDERED: Sugammadex * 200 MG/2 ML VIAL IV PUSH ONE (12:40)
[2018-07-26] MEDS ORDERED: Ondansetron INJ* 2 MG/ML VIAL ONE (13:20)
[2018-07-26] MEDS ORDERED: Acetaminophen TAB* 325 MG PO PRN (13:27)
[2018-07-26] MEDS ORDERED: HYDROmorphone INJ1* 1 MG/ML SYRINGE IV SLOW PU PRN (13:27)
[2018-07-26] MEDS ORDERED: Nicotine Inhaler* 10 MG AMP INH PRN (13:34)
[2018-07-26] MEDS ORDERED: fentaNYL* 50 MCG/ML 2 ML VIAL (100 MCG VIAL) ONE ×3 (13:54→15:57)
[2018-07-26] MEDS: fentaNYL* 50 MCG/ML 2 ML VIAL (100 MCG VIAL) IV PRN ×4 (14:06→15:58)
[2018-07-26] MEDS ORDERED: HYDROmorphone PCA* 20 MG/20 ML PCA.SYRING ONE (14:13)
[2018-07-26] MEDS ORDERED: hydrALAZINE IV* 20 MG/ML VIAL ONE (14:30)
[2018-07-26] MEDS ORDERED: Metoprolol Tartrate IV* 1 MG/ML 5 ML VIAL ONE (15:45)
[2018-07-26] MEDS ORDERED: Metoprolol Tartrate IV* 1 MG/ML 5 ML VIAL IV SCH (16:00)
[2018-07-26] MEDS ORDERED: Nicotine PATCH 14 MG/24 HR* PATCH TRANSDERM SCH (18:00)
[2018-07-26] MEDS ORDERED: HYDROmorphone PCA 1 MG/ML Titrat per Protocol PCA SCH (18:00)
[2018-07-26] MEDS: Lactated Ringers 1000 ML Bag* 1,000 ML IV SCH ×2 (18:19→22:07)
[2018-07-26] MEDS: Metoprolol Tartrate IV* 1 MG/ML 5 ML VIAL IV SCH ×2 (18:53→23:32)
[2018-07-26] MEDS: Ondansetron INJ* 2 MG/ML VIAL IV PRN (18:59)
[2018-07-26 19:17] LABS: BUN/Creatinine Ratio 16.5 (8-20); Calcium 8.5 mg/dL (8.6-10.3); EGFR African American 125.6 (>60); EGFR Non-African American 103.8 (>60); Potassium 4.1 mmol/L (3.5-5.0)
[2018-07-26] MEDS: Nicotine Patch Removal NOTE PATCH OFF SCH (20:39)
--- NOTE | 2018-07-26 21:03 | CONS ---
CC: Dr. Lama; Dr. Clarke CONSULTATION REPORT: DATE OF CONSULTATION: 07/26/18 PRIMARY CARE PROVIDER: Dr. Lama. REQUESTING PHYSICIAN: Dr. Clarke. ADDENDUM: The case was reviewed and discussed with EMELIA Gillette. Mr. Milton is a 48-year-old male with a past medical history of tobacco abuse, who was admitted for an elective sigmoidectomy due to sigmoid colon stricture. His surgeon states that the surgery went w ell, but the patient developed significant hypertension during surgery and required IV labetalol. As per report, this is not unusual for him. Three years ago, he was told he had high blood pressure, but has not been on any medications. The impression at this point is that the patient has hypertensive urgency and we will try to control it with IV medications since he cannot have anything p.o. for now right after surgery. If he does no t respond to metoprolol IV, we may have to consider starting a drip, even though this is not hyperten sive emergency, because we will not be able to use his GI tract for sometime. We will continue to monitor the patient. I am in agreement with the current management. [id number]/[facility] #: [id number]
--- NOTE | 2018-07-26 21:27 | CONS ---
CC: Dr. Maricel Clarke; Dr. Vickie Lama * CONSULTATION REPORT: DATE OF CONSULTATION: 07/26/18 CONSULTING PROVIDER: Dr. Maricel Clarke. MY ATTENDING WHILE IN THE HOSPITAL: Dr. Peg Lorenzo. PRIMARY CARE PROVIDER: Dr. Vickie Lama. REASON FOR CONSULTATION: Hypertension. HISTORY OF PRESENT ILLNESS: Mr. Milton is a 48-year-old male with no significant past medical history, except for an intraabdominal abscess of unknown origin that was diagnosed in late March 2018, treated with IR drainage and antibiotics. The patient was hospitalized until 04/15/18. The patient at that point was deemed adequately resolved. The patient was discharged for followup with Dr. Marciel Clarke of general surgery and Dr. Jessica Kwon of gastroenterology. The patient since then has had a sigmoidoscopy , which was unable to be completed due to a significant sigmoid stricture. A virtual colonoscopy was also unsuccessful. The patient since then has been having only pencil-thin stools. Due to concern for significant sigmoid stricture, the patient was scheduled for an outpatient colon resection with Dr. Maricel Clarke which was performed today. The patient, 3 years ago, states has had hypertensive problems, but was never started on any medications and attributed this to a large amount of caffeine. The patient drinks alcohol equivalent to 1 to 2 vodka shots a day, has never had withdrawal symptoms from alcohol. Does not feel tremulous and tachycardic. The patient had some nausea and vomiting preoperatively related to his colon prep. The patient otherwise had no illnesses or symptoms prior to his surgery. The patient intraoperatively had high blood pressure, which responded to labetalol, but then returned with diastolics in the 110s to 120s postoperatively. Due to this, we were asked to evaluate the patient. Postoperatively, the patient complains of pain in his abdomen. The patient denies chest pain, shortness of breath, palpitations, changes in his vision, headache. The patient has a Gallardo catheter and has no blood in his urine. The patient has no nausea or vomiting. The patient is otherwise stable, but his blood pressure is persistently elevated. The patient is at times borderline tachycardic in association with pain. PAST MEDICAL HISTORY: 1. Colonic stricture. 2. Intraabdominal abscess, now resolved. 3. History of alcohol abuse. 4. History of tobacco abuse. PAST SURGICAL HISTORY: The patient had surgery as an infant after a radiator fell on his face. MEDICATIONS: Nicotine inhaler. ALLERGIES: No known drug allergies. FAMILY HISTORY: The patient has an uncle and maternal grandfather, both of whom had colon cancer. The patient has no history of anesthesia problems. The patient does not know any more of his family history. SOCIAL HISTORY: The patient is trying to quit smoking. The patient cannot quantify the amount he smokes per day. The patient drinks equivalent to 1 to 2 vodka drinks a day and his last drink was on 07/24/18. The patient denies any illicit drug use. 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 The patient's surrogate decision maker will be his friend, Clari Persaud. REVIEW OF SYSTEMS: A 14-point review of systems was reviewed and is negative, except as above in the HPI. PHYSICAL EXAM: General: The patient is a 48-year-old male who appears stated age and sitting comfortably in bed, in no acute distress. Vital Signs: At the time of evaluation, temperature 98.1, pulse rate 89, respiratory rate 20, oxygen saturation 100% on 2 L, blood pressure 168/108. HEENT: Head normocephalic, atraumatic. Sclerae anicteric. No conjunctival injection. Nasal mucosa moist. Oral mucosa moist. No oropharyngeal erythema, discharge, or exudate. Neck: Supple, nontender. No lymphadenopathy. No carotid bruits auscultated. No JVD. Cardiac: Regular rate and rhythm. No clicks, murmurs, gallops, or rubs. Pulses are 2+ in bilateral dorsalis pedis, posterior tibialis and radial areas. No bilateral lower extremity edema noted. Respiratory: Clear to auscultation bilaterally. No wheezes, rales, or rhonchi. Good air exchange bilaterally. Abdomen: Soft, tender to palpation throughout. Hypoactive bowel sounds present in all 4 quadrants. Laparoscopic and open abdominal incisions present. Genitourinary: No suprapubic or CVA tenderness. The patient has a Gallardo catheter in place, draining clear yellow urine. Neuro: Cranial nerves II through XII intact. No focal deficits. Alert and oriented x3. Psychiatric: Pleasant and cooperative. Skin: No rashes. Surgical incisions as above. DIAGNOSTIC STUDIES/LAB DATA: Laboratory Data: Preoperatively, white blood cell count 8.1, hemoglobin 15.0, platelet count 181. Sodium 141, potassium 4.3 , chloride 105, carbon dioxide 29, anion gap 7, BUN 26, creatinine 0.9, glucose 104, lactic acid 0.7, calcium 9.5. Bilirubin 0.5, AST 15, ALT 13, CRP 19.11. Protein 7.3, albumin 4.8, globulin 2.5. CEA 3.9. ASSESSMENT/PLAN: Impression: Mr. Milton is a 48-year-old male with past medical history significant for a recent intraabdominal abscess, treated with interventional radiology drainage and antibiotics, who developed a sigmoid colonic stricture afterwards who is currently postoperative for sigmoid resection with postoperative hypertension. 1. Hypertension. The patient on his previous admission had labile blood pressures which were occasionally borderline. The patient is only mildly hypertensive and sometimes hypotensive. The patient did have an active infection at that time. The patient does have a history of hypertension 3 years ago, for which he was never treated. The patient's blood pressure remains out of control at this time. We will get BMP and EKG to assess for end- organ damage. The patient has no changes in his vision, no chest pain or signs of acute cardiac disease. The patient has gotten labetalol and hydralazine at this point. The patient will be treated with metoprolol 5 mg q.6 hours. That may be discontinued if his blood pressure improves. The patient can be transitioned to oral medications tomorrow as needed and the appropriateness of this for long-term blood pressure control can be evaluated at discharge. It is likely the patient has hypertension outpatient given his alcohol and tobacco abuse and history of hypertension. If the patient has no signs of end-organ damage, there is no real urgency to treating the patient's hypertension. His blood pressures are not excessively high, but the diastolic blood pressures are disproportionately high. 2. Postoperative state. Management per general surgery. The patient has been given ertapenem intraoperatively antibiotic per surgery. 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 The patient should have followup labs tomorrow. The patient's diet and activity level will be advanced per surgery. 3. Tobacco abuse. The patient has a nicotine inhaler ordered and additional medications can be given as needed to control cravings. 4. History of alcohol abuse. The patient did not withdraw from alcohol when he was here in the hospital before and likely will not withdraw at this time as he has a low intake of alcohol daily. If the patient begins to have more symptoms of alcohol withdrawal, this could be treated with appropriate protocol. 5. Disposition per Surgery. 6. FEN. Fluids until the patient is able to take in adequate intake by mouth. The patient will be n.p.o. and be advanced to clear liquid diet tomorrow and then his diet will be advanced per surgery. TIME SPENT: Approximately 60 minutes were spent on this consultation, 30 of which were spent [id number] with the patient, obtaining history and physical, and discussing treatment plan. Plan was discussed with my attending, Dr. Peg Lorenzo, and she is in agreement. EMELIA RYAN [id number]/[facility] #: [id number] [email or web address]
[2018-07-26] MEDS: Heparin VIAL(*) 5000 UNITS/ML VIAL (FIVE THOUSAND) SUBCUT SCH (22:12)
--- NOTE | 2018-07-27 01:28 | OP ---
CC: Jessica Wright MD OPERATIVE REPORT: DATE OF OPERATION: 07/26/18 DATE OF : 66 SERVICE: General surgery. ATTENDING SURGEON: Maricel Clarke MD REAL ESTATE LAWYER: Dr. Andrey Chapa and Magnolia Bruce NP ANESTHESIOLOGIST: Dr. Ramirez Webb. ANESTHESIA: General endotracheal anesthesia. PRE-OP DIAGNOSIS: Sigmoid intraabdominal abscess, sigmoid mass versus stricture. POST-OP DIAGNOSIS: Intraabdominal abscess, sigmoid phlegmon, and stricture. OPERATIVE PROCEDURE: Diagnostic laparoscopy, lysis of adhesions, sigmoidectomy , appendectomy. ESTIMATED BLOOD LOSS: 50cc SPECIMEN: appendix, sigmoid colon and donuts INDICATIONS FOR SURGERY: Mr. Milton is a very pleasant 48-year-old gentleman with history of smoking, who presented to the emergency room in early April 2018 with intraabdominal abscess of unclear etiology. After percutaneous drainage and antibiotics, he recovered and was able to be discharged home; however, during his followup colonoscopy, the scraper operator was unable to pass even the smallest pediatric scope through his sigmoid colon and fearing that there was either a stricture or mass that was unable to be passed, he was determined to be an appropriate candidate for an operative intervention with a diagnostic laparoscopy and laparoscopic possible open sigmoidectomy and other related procedures. He understood the risks, benefits, and alternatives of the procedure and he wished to proceed. DESCRIPTION OF PROCEDURE: The patient was brought back to the operating room and placed on the operating table in a supine position. Sequential compression devices were placed on the bilateral lower extremities for DVT prophylaxis. The patient received heparin subcutaneously and antibiotics prior to induction of anesthesia. General endotracheal anesthesia was then induced. The patient' s abdomen was prepped and draped. The patient was placed in supine position. A Gallardo catheter was placed. His arms were tucked and his abdomen was then prepped and draped in normal sterile fashion. Prior to doing this, a digital rectal was performed which revealed no significant masses or lesions in his lower rectum, and normal anal tone. The rectum was also irrigated with diluted Betadine to clear out the rectum. Prior to beginning the surgery, a time-out was performed verifying the patient's name, MR number, and the procedure to be performed. The patient had a small umbilical hernia; therefore, a local anesthesia with 0.25% Marcaine was infiltrated into the umbilicus. A small incision was made through the umbilical incision and a 5 mm trocar was placed into the abdomen. Insufflation was obtained to 15 mmHg. Upon general inspection of the abdominal cavity, there was no apparent injury that had been made upon entry. Next, under direct visualization and after administering 0.25 % Marcaine for local anesthesia, the remaining trocars were placed under direct visualization. A 5 mm trocar was placed in the right upper quadrant, in the right lower quadrant, in the left quadrant, as well as in the lower midline approximately 3 fingerbreadths above the pubis After this, the patient was placed in Trendelenburg with the left side up and it was noted that he had many adhesions in the pelvis. The distal sigmoid colon was noted to be thickened, enlarged and densely adherent to the anterior abdominal wall and presumably also the bladder. On the right side, there was a loop of small bowel that was also very densely adherent to the right aspect of the sigmoid phlegmon. This was the percutaneous drain had previously been placed through the anterior abdominal wall. Therefore, attention was turned towards mobilizing the colon up to the sigmoid flexure. Lateral mobilization was performed dividing the White line of [place] and mobilizing medially up to the spleen. Once this was done, the sigmoid colon and the descending colon were very mobile. Care was taken to avoid injury to the left ureter. Next, attention was turned again towards the pelvis. An attempt to perform some laparoscopic adhesiolysis in the pelvis was done; however, given again how hard the phlegmon was the involvement of the small bowel loop and the concern of making an enterotomy with further lysis, decision was made to open to perform the sigmoidectomy and remaining lysis of adhesions. A lower vertical midline incision was made through the skin, subcutaneous tissue and fascia and into the abdomen. A large Db wound protector was placed. Desufflation was obtained and then the trocars were removed. Again, by direct palpation, there was extremely large dense phlegmon that appeared more like a diverticular stricture than malignancy. The sigmoid was also again noted to be very densely adherent to the anterior abdominal wall. With great care and using finger fracture, attention was turned towards the small bowel that appeared to be on the right side of the sigmoid colon. The small bowel was largely finger fractured off and sharp dissection also allowed it to be totally freed up. Once it was freed, it was seen that this was actually the terminal ileum in the appendix that had been densely adherent to this area. There was also a very small pocket of residual abscess that was broken into and drained. The appendix was normal in size; however, it did appear to have a lot of fibrosis around it. There was also an area of deserosalization of the cecum in 3 areas. An appendectomy was performed after dividing the mesoappendix with Ligasure. The appendix was divided at the base of the cecum using a TRISTON 60 mm hassan load and then it was carried off the table as specimen. Attention was then turned towards the serosal tears of the cecum, which were oversewn using interrupted 3-0 silk sutures. There was one area that was very close to the terminal ileum on the cecum that appeared to be part of the old abscess cavity and there was a lot of firmness around the cecum. There was a small amount of fat from the ligament of Treitz that was then used to imbricate over this deserosalized area. Attention was turned towards freeing up the rest of the sigmoid. This was done carefully with blunt and sharp dissection, taking care to avoid injury to the bladder and the ureters. Once this was done, it was clearly seen at a large sigmoid phlegmon with approximately 10 cm in length, below this there was an excellent amount of soft rectum. A proximal resection site was selected at the sigmoid colon that clearly had no diverticula or inflammation. The sigmoid colon was circumferentially dissected at this area and a bowel clamp was then placed across the sigmoid colon and then it was divided. Sizers were used to dilate the proximal sigmoid colon; however, the diameter of the lumen was fairly small, and only 25 mm and dilator was able to pass through. Therefore, in Stoner's fashion, a 28 mm anvil was placed through the antimesenteric border of the proximal sigmoid colon and the open colotomy was then closed using a stapler. After this was done, attention was turned towards the rectosigmoid stump. The mesentery was divided very close to the sigmoid colon to avoid injury to the ureters and once this was done and the entire area of phlegmon was elevated out of the pelvis near sacral promontory, this lower resection point was selected where it was determined that the rectum was at the rectosigmoid junction. The mesorectum was circumferentially divided off of the rectum and then a TA green load 60 mm stapler was used to staple across the distal resection site. Once this was done, the sigmoid colon was carried off the table as specimen and the distal resection site was marked. Attention was then turned towards the pelvis. Hemostasis was obtained and at this point, the colorectal anastomosis was prepared. Dr. Chapa went to the bottom and he was able to dilate the rectum easily and placed a 28 EEA stapler through the rectum. Once this was done, the EEA and the anvil were then together, all the while ensuring there was twisting of the sigmoid colon or mesenery. Once this was ensured, the EEA was fired and the 2 donuts were examined at the back table and noted to be both intact. An air leak test was performed and there was no evidence of an air leak or bubbles. The area of the colorectal anastomosis was then oversewn with a single silk suture and then once this was done, the anastomosis felt excellent and intact without any tension on it. At this point, the abdomen was irrigated off all excess fluid and checked for hemostasis. There was no evidence of bleeding. Lap and instrument counts were correct. A 10 BI drain was placed through the right lower quadrant trocar site and into the pelvis. A 0 Vicryl was used to close the fascia at the umbilicus and then the skin at the laparoscopic trocar site was closed using 4-0 Monocryl suture. The fascia of the lower midline incision was closed using running #1 PDS and sacha were used to close this incision. Sterile dressing was then placed. The patient's anesthesia was reversed and he was taken to the PACU in stable condition. At the end of the case, all counts were correct and I was present during the entirety of the case. [id number]/[facility] #: [id number] APRIL
[2018-07-27] MEDS: Metoprolol Tartrate IV* 1 MG/ML 5 ML VIAL IV SCH ×5 (03:20→21:31)
[2018-07-27 05:30] LABS: Urine Appearance Clear; Urine Bacteria Absent (Absent); Urine Bilirubin Negative (Negative); Urine Blood 1+ (Negative); Urine Color Straw; Urine Glucose Negative (Negative); Urine Ketones Trace (Negative); Urine Nitrite Negative (Negative); Urine Protein Negative (Negative); Urine Red Blood Cell 2+(6-10/hpf) (Absent); Urine Specific Gravity 1.008 (1.010-1.030); Urine Urobilinogen Negative (Negative); Urine White Blood Cell Absent (Absent)
[2018-07-27] MEDS: Heparin VIAL(*) 5000 UNITS/ML VIAL (FIVE THOUSAND) SUBCUT SCH ×3 (06:12→21:35)
[2018-07-27] MEDS: Lactated Ringers 1000 ML Bag* 1,000 ML IV SCH ×2 (06:12→18:22)
[2018-07-27] MEDS: Nicotine Inhaler* 10 MG AMP INH PRN ×2 (06:14→15:59)
[2018-07-27 06:46] LABS: ABS Basophils 0 10^3/ul (0-0.2); ABS Eosinophils 0 10^3/ul (0-0.6); ABS Lymphocytes 1.3 10^3/ul (1.0-4.8); ABS Neutrophils 9.1 10^3/ul (1.5-7.7); ABS Nucleated RBC 0 10^3/ul; Eosinophil % 0 %; Hematocrit 39 % (36-46); Hemoglobin 13.1 g/dL (14.0-18.0); Lymphocyte % 11.5 %; Mean Corpuscular HGB Conc 34 g/dL (31-36); Mean Corpuscular Hemoglobin 31 pg (27-31); Mean Corpuscular Volume 91 fL (80-94); Mean Platelet Volume 9.8 fL (7.4-10.4); Nucleated Red Blood Cells % 0; Platelet Count 161 10^3/uL (150-450); Red Blood Count 4.24 10^6 /uL (4.18-5.48); Red Cell Distribution Width 14 % (10.5-15); White Blood Count 11.4 10^3/uL (3.5-10.8)
[2018-07-27 07:03] LABS: Albumin 3.6 g/dL (3.2-5.2); Albumin/Globulin Ratio 1.6 (1-3); BUN/Creatinine Ratio 15.7 (8-20); Calcium 8.6 mg/dL (8.6-10.3); EGFR African American 144.4 (>60); EGFR Non-African American 119.4 (>60); Globulin 2.3 g/dL (2-4); Total Bilirubin 0.6 mg/dL (0.2-1.0); Total Protein 5.9 g/dL (6.4-8.9)
--- NOTE | 2018-07-27 08:06 | PN ---
Subjective Date of Service: 07/27/18 Interval History: Mr. Milton reports that he is feeling quite well other than some pain in his abdomen. He is smiling, laughing and in good spirits. He denies chest pain or SOB. He has no nausea. He is mild abdominal pain with gentle palpation, mild abdominal distention. Objective Active Medications: Acetaminophen (Tylenol Tab*) 650 mg PO Q4H PRN Heparin Sodium (Porcine) (Heparin Vial(*)) 5,000 units SUBCUT Q8HR MAIRA Lactated Ringer's (Lactated Ringers 1000 Ml Bag*) 1,000 mls @ 125 mls/hr IV PER RATE MAIRA Hydromorphone HCl (Dilaudid Zoogler*) 20 mg in 20 mls @ 0 mls/hr TACKER ELASTIC BAND .change Q24H MAIRA; Protocol Metoprolol Tartrate (Lopressor Iv*) 5 mg IV Q4H MAIRA Nicotine (Nicotine Inhaler*) 10 mg INH Q2H PRN Ondansetron HCl (Zofran Inj*) 4 mg IV Q4H PRN Pharmacy Profile Note (Nicotine Patch Removal Note*) 1 note PATCH OFF 2099 MAIRA Vital Signs: Temp Pulse Resp BP Pulse Ox 98.2 F 90 18 130/82 94 07/27/18 03:17 07/27/18 06:48 07/27/18 07:47 07/27/18 03:17 07/27/18 07:47 Oxygen Devices in Use Now: Nasal Cannula Appearance: Male lying in bed in NAD Eyes: No Scleral Icterus Ears/Nose/Mouth/Throat: Mucous Membranes Moist Neck: Trachea Midline Respiratory: Symmetrical Chest Expansion and Respiratory Effort, - - Congested cough, lungs CTAB Cardiovascular: NL Sounds; No Murmurs; No JVD, No Edema Abdominal: - - Soft, mild tenderness with gentle palpation, mild distention Extremities: No Edema Skin: - - Lap sites to abdomen, dressing CDI Neurological: Alert and Oriented x 3, NL Muscle Strength and Tone Nutrition: Taking PO's Result Diagrams: 07/27/18 06:01 07/27/18 06:01 Assess/Plan/Problems-Billing Assessment: Mr. Milton is a 48 yo male with a PMH of previous intrabdominal abscess in April 2018 of unclear etiology who was admitted on 07/26/18 due to finding outpatient of significant stricture via EGD with plan for diagnostic laparoscopy with finding of sigmoid stricture and phlegmon now s/p lysis of adhesions, sigmoidectomy and appendectomy. - Patient Problems (1) Intra-abdominal adhesions Comment: - Finding of significant adhesions and large sigmoid phlegmon s/p lysis of adhesions, sigmoidectomy and appendectomy with Dr. Clarke - Had intra-abdominal abscess in this location in Apr 2018, no evidence of persistent abscess or infectionon exam in OR, WBC 11, afebrile - Continue ice chips, dilaudid TACKER ELASTIC BAND (2) Hypertension Comment: - SBP seems to have improved today but has been elevated - Continue metoprolol IV, observe - May need oral anti-hypertensive at discharge (3) Nicotine dependence Comment: - No withdrawal symptoms, nicotine replacement available - Smoking cessation counseling offered (4) DVT prophylaxis Comment: - Heparin SQ (5) Full code status Comment: Status and Disposition: Inpatient with disposition per surgery.
--- NOTE | 2018-07-27 11:35 | PN ---
Progress Note - Progress Note Date of Service: 07/27/18 Note: Surgery Progress Note S: Patient reports feeling well this morning. He appears in good spirits. He has abdominal pain with movement. He is sitting up in a chair. No nausea or emesis. O: Vital Signs: Temp Pulse Resp BP Pulse Ox 98.4 F 88 16 140/94 99 07/27/18 11:15 07/27/18 11:15 07/27/18 11:15 07/27/18 11:15 07/27/18 11:15 Laboratory Last Values WBC 11.4 10^3/uL (3.5-10.8) H 07/27/18 06:01 RBC 4.24 10^6 /uL (4.18-5.48) 07/27/18 06:01 Hgb 13.1 g/dL (14.0-18.0) L 07/27/18 06:01 Hct 39 % (36-46) 07/27/18 06:01 MCV 91 fL (80-94) 07/27/18 06:01 MCH 31 pg (27-31) 07/27/18 06:01 MCHC 34 g/dL (31-36) 07/27/18 06:01 RDW 14 % (10.5-15) 07/27/18 06:01 Plt Count 161 10^3/uL (150-450) 07/27/18 06:01 MPV 9.8 fL (7.4-10.4) 07/27/18 06:01 Neut % (Auto) 79.9 % 07/27/18 06:01 Lymph % (Auto) 11.5 % 07/27/18 06:01 [place] % (Auto) 8.5 % 07/27/18 06:01 Eos % (Auto) 0 % 07/27/18 06:01 Baso % (Auto) 0.1 % 07/27/18 06:01 Absolute Neuts (auto) 9.1 10^3/ul (1.5-7.7) H 07/27/18 06:01 Absolute Lymphs (auto) 1.3 10^3/ul (1.0-4.8) 07/27/18 06:01 Absolute Monos (auto) 1.0 10^3/ul (0-0.8) H 07/27/18 06:01 Absolute Eos (auto) 0 10^3/ul (0-0.6) 07/27/18 06:01 Absolute Basos (auto) 0 10^3/ul (0-0.2) 07/27/18 06:01 Absolute Nucleated RBC 0 10^3/ul 07/27/18 06:01 Nucleated RBC % 0 07/27/18 06:01 INR (Anticoag Therapy) 0.96 (0.77-1.02) 07/26/18 07:28 APTT 34.5 seconds (26.0-36.3) 07/26/18 07:28 Sodium 139 mmol/L (135-145) 07/27/18 06:01 Potassium 4.0 mmol/L (3.5-5.0) 07/27/18 06:01 Chloride 105 mmol/L (101-111) 07/27/18 06:01 Carbon Dioxide 29 mmol/L (22-32) 07/27/18 06:01 Anion Gap 5 mmol/L (2-11) 07/27/18 06:01 BUN 11 mg/dL (6-24) 07/27/18 06:01 Creatinine 0.70 mg/dL (0.67-1.17) 07/27/18 06:01 Est GFR ( Amer) 144.4 (>60) 07/27/18 06:01 Est GFR (Non-Af Amer) 119.4 (>60) 07/27/18 06:01 BUN/Creatinine Ratio 15.7 (8-20) 07/27/18 06:01 Glucose 130 mg/dL (70-100) H 07/27/18 06:01 Calcium 8.6 mg/dL (8.6-10.3) 07/27/18 06:01 Total Bilirubin 0.60 mg/dL (0.2-1.0) 07/27/18 06:01 AST 19 U/L (13-39) 07/27/18 06:01 ALT 14 U/L (7-52) 07/27/18 06:01 Alkaline Phosphatase 50 U/L (34-104) 07/27/18 06:01 Total Protein 5.9 g/dL (6.4-8.9) L 07/27/18 06:01 Albumin 3.6 g/dL (3.2-5.2) 07/27/18 06:01 Globulin 2.3 g/dL (2-4) 07/27/18 06:01 Albumin/Globulin Ratio 1.6 (1-3) 07/27/18 06:01 Urine Color Straw 07/26/18 23:52 Urine Appearance Clear 07/26/18 23:52 Urine pH 7.0 (5-9) 07/26/18 23:52 Ur Specific [place] 1.008 (1.010-1.030) L 07/26/18 23:52 Urine Protein Negative (Negative) 07/26/18 23:52 Urine Ketones Trace (Negative) A 07/26/18 23:52 Urine Blood 1+ (Negative) A 07/26/18 23:52 Urine Nitrate Negative (Negative) 07/26/18 23:52 Urine Bilirubin Negative (Negative) 07/26/18 23:52 Urine Urobilinogen Negative (Negative) 07/26/18 23:52 Ur Leukocyte Esterase Negative (Negative) 07/26/18 23:52 Urine WBC (Auto) Absent (Absent) 07/26/18 23:52 Urine RBC (Auto) 2+(6-10/hpf) (Absent) A 07/26/18 23:52 Urine Bacteria Absent (Absent) 07/26/18 23:52 Urine Glucose Negative (Negative) 07/26/18 23:52 Intake & Output 07/26/18 07/27/18 07/27/18 22:59 06:59 14:59 Intake Total 998 990 30 Output Total 2905 795 Balance -1907 195 30 Intake: IV Fluids 998 990 LR 998 990 Oral 0 0 30 Output: BI #1 30 20 Harper [id number] Other: # Bowel Movements 0 0 Diet: NPO IVF: LR @125 Abx: none Ppx: HSQ Pain: dilaudid PATIENT NAVIGATOR, tylenol PRN Abdomen: soft, minimally tender and distended. Lap incisions c/d/i, dressing in place over lower abdominal incision. BI with serosanguinous fluid A/P: 48 M POD 1 from lap assisted sigmoidectomy for large sigmoid phelgmon/ stricture, doing well. - Start clear liquid diet today - DC harper catheter - Decrease IVF to 50cc/hour - Continue PATIENT NAVIGATOR for pain control - OOB and ambulate. Encouraged patient to use IS every hour - Appreciate hospitalist consultation for post operative HTN, patient on MTP with hold parameters. Appears better controlled today.
[2018-07-27] MEDS ORDERED: Lactated Ringers 1000 ML Bag* 1,000 ML IV SCH (11:37)
[2018-07-27] MEDS: Nicotine Patch Removal NOTE PATCH OFF SCH (21:36)
[2018-07-27] MEDS: Acetaminophen ADULT LIQ* 650 MG/20.3 ML UDC PO PRN (23:42)
[2018-07-28] MEDS: Metoprolol Tartrate IV* 1 MG/ML 5 ML VIAL IV SCH ×3 (00:50→08:43)
[2018-07-28] MEDS: Acetaminophen ADULT LIQ* 650 MG/20.3 ML UDC PO PRN ×2 (04:31→19:59)
[2018-07-28 05:46] LABS: ABS Basophils 0 10^3/ul (0-0.2); ABS Eosinophils 0.1 10^3/ul (0-0.6); ABS Lymphocytes 1.8 10^3/ul (1.0-4.8); ABS Monocytes 0.7 10^3/ul (0-0.8); ABS Neutrophils 5.3 10^3/ul (1.5-7.7); ABS Nucleated RBC 0 10^3/ul; Eosinophil % 1.3 %; Hematocrit 39 % (36-46); Hemoglobin 13.3 g/dL (14.0-18.0); Lymphocyte % 22.4 %; Mean Corpuscular HGB Conc 34 g/dL (31-36); Mean Corpuscular Hemoglobin 31 pg (27-31); Mean Corpuscular Volume 92 fL (80-94); Mean Platelet Volume 9.4 fL (7.4-10.4); Nucleated Red Blood Cells % 0.1; Platelet Count 156 10^3/uL (150-450); Red Cell Distribution Width 14 % (10.5-15); White Blood Count 7.9 10^3/uL (3.5-10.8)
[2018-07-28 06:01] LABS: BUN/Creatinine Ratio 14.1 (8-20); Calcium 9.2 mg/dL (8.6-10.3); EGFR African American 142.1 (>60); EGFR Non-African American 117.4 (>60); Potassium 4.1 mmol/L (3.5-5.0)
[2018-07-28] MEDS: Heparin VIAL(*) 5000 UNITS/ML VIAL (FIVE THOUSAND) SUBCUT SCH ×2 (06:24→20:05)
--- NOTE | 2018-07-28 09:20 | PN ---
Subjective Date of Service: 07/28/18 Interval History: Mr. Milton reports feeling quite well today. He does have pain in and around his abdominal incision site. He denies other complaint. He has not passed flatus. He is tolerating clear liquids. 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 INSPECTOR .change Q24H [facility]; Protocol Lactated Ringer's (Lactated Ringers 1000 Ml Bag*) 1,000 mls @ 50 mls/hr IV PER RATE [facility] Lactated Ringer's (Lactated Ringers 1000 Ml Bag*) 1,000 mls @ 0 mls/hr IV PER RATE [facility] Metoprolol Tartrate (Lopressor Iv*) 5 mg IV Q4H [facility] Nicotine (Nicotine Inhaler*) 10 mg INH Q2H PRN Ondansetron HCl (Zofran Inj*) 4 mg IV Q4H PRN Pharmacy Profile Note (Nicotine Patch Removal Note*) 1 note PATCH OFF 2099 [facility] Vital Signs: Temp Pulse Resp BP Pulse Ox 97.8 F 79 16 155/83 96 07/28/18 04:23 07/28/18 04:23 07/28/18 06:25 07/28/18 05:28 07/28/18 06:25 Oxygen Devices in Use Now: Nasal Cannula Appearance: Male sitting up in chair in NAD Eyes: No Scleral Icterus Ears/Nose/Mouth/Throat: Mucous Membranes Moist Neck: Trachea Midline Respiratory: Symmetrical Chest Expansion and Respiratory Effort, Clear to Auscultation Cardiovascular: NL Sounds; No Murmurs; No JVD, No Edema Abdominal: - - Soft, tenderness to palpation in mid-low abdomen, no rebound or guarding Extremities: No Edema Skin: - - abdominal incisions well approximated, no erythema or drainage, BI drain in situ Nutrition: Taking PO's Result Diagrams: 07/28/18 05:30 07/28/18 05:30 Assess/Plan/Problems-Billing Assessment: Mr. Milton is a 48 yo male with a PMH of previous intrabdominal abscess in April 2018 of unclear etiology who was admitted on 4/19/19 due to finding outpatient of significant stricture via EGD with plan for diagnostic laparoscopy with finding of sigmoid stricture and phlegmon now s/p lysis of adhesions, sigmoidectomy and appendectomy. - Patient Problems (1) Intra-abdominal adhesions Comment: - POD # 2, finding of significant adhesions and large sigmoid phlegmon s/p lysis of adhesions, sigmoidectomy and appendectomy with Dr. Clarke - Had intra-abdominal abscess in this location in Apr 2018, no evidence of persistent abscess or infection on exam in OR, WBC 11, afebrile - Advanced to clear liquids, dilaudid PASSENGER CAR INSPECTOR (2) Hypertension Comment: - SBP 140-160s - Start amlodipine (3) Nicotine dependence Comment: - No withdrawal symptoms, nicotine replacement available - Smoking cessation counseling offered (4) DVT prophylaxis Comment: - Heparin SQ (5) Full code status Comment: Status and Disposition: Inpatient with disposition per surgery.
[2018-07-28] MEDS ORDERED: amLODIPine TAB* 5 MG PO SCH (10:00)
--- NOTE | 2018-07-28 10:15 | PN ---
Progress Note - Progress Note Date of Service: 07/28/18 Note: Surgery Progress Note S: Patient is in good spirits this morning. He complained of having more pain than yesterday when straining to get out of bed this morning. When he does not move he denies pain. He tolerated CLD yesterday without nausea or emesis. He ambulating multiple times and used IS. No flatus. He has had good UOP since removal of FC yesterday but feels like the urine is stop and go. O: Vital Signs: Temp Pulse Resp BP Pulse Ox 97.8 F 79 16 155/83 96 07/28/18 04:23 07/28/18 04:23 07/28/18 06:25 07/28/18 05:28 07/28/18 06:25 Laboratory Results - last 24 hr 07/28/18 07/28/18 05:30 05:30 WBC 7.9 RBC 4.30 Hgb 13.3 L Hct 39 MCV 92 MCH 31 MCHC 34 RDW 14 Plt Count 156 MPV 9.4 Neut % (Auto) 66.6 Lymph % (Auto) 22.4 [place] % (Auto) 9.4 Eos % (Auto) 1.3 Baso % (Auto) 0.3 Absolute Neuts (auto) 5.3 Absolute Lymphs (auto) 1.8 Absolute Monos (auto) 0.7 Absolute Eos (auto) 0.1 Absolute Basos (auto) 0 Absolute Nucleated RBC 0 Nucleated RBC % 0.1 Sodium 136 Potassium 4.1 Chloride 102 Carbon Dioxide 28 Anion Gap 6 BUN 10 Creatinine 0.71 Est GFR ( Amer) 142.1 Est GFR (Non-Af Amer) 117.4 BUN/Creatinine Ratio 14.1 Glucose 121 H Calcium 9.2 Intake & Output 07/27/18 07/28/18 07/28/18 22:59 06:59 14:59 Intake Total 1090 500 240 Output Total 945 770 Balance 145 -270 240 Intake: IV Fluids 990 LR 990 Oral 100 500 240 Output: BI #1 20 20 Urine 925 750 Other: # Bowel Movements 0 0 # Voids 1 Diet: CLD, IVF @50 Abx: none Ppx: HSQ BID Pain: dilaudid 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 Mild bruising to the right of incision and around umbilicus. Lap drains c/d/i. BI serosanguinous with minimal output A/P: 48 M POD 2 from lap assisted sigmoidectomy for large sigmoid phelgmon and likely stricture, doing well. - Continue CLD until passing flatus - Changed HSQ from TID to BID - Started toradol around the clock for pain control. Encouraged patient to reduce amount of dilaudid per WALL MIRROR DEPARTMENT SUPERVISOR as he will be receiving toradol. - If labs remain normal tomorrow will DC labs - Amlodipine started by hospitalists for HTN, IV MTP dc'ed - Continue OOB and ambulating
[2018-07-28] MEDS: Ketorolac INJ* 15 MG/ML 1 ML VIAL IV PUSH SCH ×3 (11:01→23:35)
[2018-07-28 11:26] LABS: ABS Basophils 0 10^3/ul (0-0.2); ABS Eosinophils 0.1 10^3/ul (0-0.6); ABS Lymphocytes 2.1 10^3/ul (1.0-4.8); ABS Monocytes 0.9 10^3/ul (0-0.8); ABS Neutrophils 4.9 10^3/ul (1.5-7.7); ABS Nucleated RBC 0 10^3/ul; Eosinophil % 1.8 %; Hematocrit 41 % (36-46); Hemoglobin 13.9 g/dL (14.0-18.0); Lymphocyte % 26.1 %; Mean Corpuscular HGB Conc 34 g/dL (31-36); Mean Corpuscular Hemoglobin 31 pg (27-31); Mean Corpuscular Volume 91 fL (80-94); Mean Platelet Volume 9.2 fL (7.4-10.4); Nucleated Red Blood Cells % 0.1; Platelet Count 176 10^3/uL (150-450); Red Blood Count 4.52 10^6 /uL (4.18-5.48); Red Cell Distribution Width 14 % (10.5-15); White Blood Count 8.1 10^3/uL (3.5-10.8)
[2018-07-28 11:43] LABS: Activated Partial Thrombo Time 38.3 seconds (26.0-36.3); INR 0.98 (0.77-1.02)
[2018-07-28 11:43] LABS: EGFR African American 133.4 (>60); EGFR Non-African American 110.2 (>60)
[2018-07-28] MEDS: Lactated Ringers 1000 ML Bag* 1,000 ML IV SCH (14:48)
[2018-07-28] MEDS ORDERED: amLODIPine TAB* 5 MG PO ONE (20:26)
[2018-07-28] MEDS: Nicotine Patch Removal NOTE PATCH OFF SCH (21:01)
[2018-07-29] MEDS: Metoprolol Tartrate TAB* 25 MG PO SCH ×2 (00:01→08:37)
[2018-07-29] MEDS: Nicotine GUM* 2 MG PO PRN ×2 (00:29→08:48)
[2018-07-29] MEDS: Ondansetron INJ* 2 MG/ML VIAL IV PRN ×2 (04:19→17:56)
[2018-07-29 05:43] LABS: ABS Basophils 0 10^3/ul (0-0.2); ABS Eosinophils 0.2 10^3/ul (0-0.6); ABS Lymphocytes 1.2 10^3/ul (1.0-4.8); ABS Monocytes 0.7 10^3/ul (0-0.8); ABS Neutrophils 5.5 10^3/ul (1.5-7.7); ABS Nucleated RBC 0 10^3/ul; Eosinophil % 2.1 %; Hematocrit 43 % (36-46); Hemoglobin 14.5 g/dL (14.0-18.0); Lymphocyte % 15.6 %; Mean Corpuscular HGB Conc 34 g/dL (31-36); Mean Corpuscular Hemoglobin 30 pg (27-31); Mean Corpuscular Volume 91 fL (80-94); Mean Platelet Volume 9.4 fL (7.4-10.4); Nucleated Red Blood Cells % 0; Platelet Count 176 10^3/uL (150-450); Red Blood Count 4.78 10^6 /uL (4.18-5.48); Red Cell Distribution Width 14 % (10.5-15); White Blood Count 7.5 10^3/uL (3.5-10.8)
[2018-07-29 05:59] LABS: BUN/Creatinine Ratio 9.4 (8-20); Calcium 9.3 mg/dL (8.6-10.3); EGFR African American 160.2 (>60); EGFR Non-African American 132.4 (>60); Potassium 3.5 mmol/L (3.5-5.0)
[2018-07-29] MEDS: Acetaminophen ADULT LIQ* 650 MG/20.3 ML UDC PO PRN (05:59)
[2018-07-29] MEDS: Ketorolac INJ* 15 MG/ML 1 ML VIAL IV PUSH SCH (06:27)
[2018-07-29] MEDS ORDERED: HYDROcodone/ACETAMIN 5-325 MG* 1 TAB PO PRN (08:22)
[2018-07-29] MEDS ORDERED: Morphine INJ* 2 MG/ML 1 ML SYRINGE (TWO MG - NEW SYRINGE VERSION) IV PRN (08:22)
--- NOTE | 2018-07-29 08:30 | PN ---
Progress Note - Progress Note Date of Service: 07/29/18 Note: Surgery Progress Note S: Patient had gas pain this morning around 1am and again early this morning. It was relieved with a liquid-bloody BM. Patient says he did not have flatus. Feels better now. No emesis yesterday. Ambulated in the morning but patient is frustrated because he feels hungry and feels he's having nicotine withdrawal. Remains afebrile, WBC normal. Still has HTN. O: Vital Signs: Temp Pulse Resp BP Pulse Ox 98.5 F 65 16 150/88 95 07/29/18 04:42 07/29/18 04:42 07/29/18 06:00 07/29/18 04:42 07/29/18 06:00 Laboratory Results - last 24 hr 07/28/18 07/28/18 07/28/18 10:49 11:18 11:18 WBC 8.1 RBC 4.52 Hgb 13.9 L Hct 41 MCV 91 MCH 31 MCHC 34 RDW 14 Plt Count 176 MPV 9.2 Neut % (Auto) 60.5 Lymph % (Auto) 26.1 [place] % (Auto) 11.1 Eos % (Auto) 1.8 Baso % (Auto) 0.5 Absolute Neuts (auto) 4.9 Absolute Lymphs (auto) 2.1 Absolute Monos (auto) 0.9 H Absolute Eos (auto) 0.1 Absolute Basos (auto) 0 Absolute Nucleated RBC 0 Nucleated RBC % 0.1 INR (Anticoag Therapy) 0.98 APTT 38.3 H Sodium Potassium Chloride Carbon Dioxide Anion Gap BUN 9 Creatinine 0.75 Est GFR ( Amer) 133.4 Est GFR (Non-Af Amer) 110.2 BUN/Creatinine Ratio Glucose Calcium 07/29/18 07/29/18 05:22 05:22 WBC 7.5 RBC 4.78 Hgb 14.5 Hct 43 MCV 91 MCH 30 MCHC 34 RDW 14 Plt Count 176 MPV 9.4 Neut % (Auto) 73.0 Lymph % (Auto) 15.6 [place] % (Auto) 8.8 Eos % (Auto) 2.1 Baso % (Auto) 0.5 Absolute Neuts (auto) 5.5 Absolute Lymphs (auto) 1.2 Absolute Monos (auto) 0.7 Absolute Eos (auto) 0.2 Absolute Basos (auto) 0 Absolute Nucleated RBC 0 Nucleated RBC % 0 INR (Anticoag Therapy) APTT Sodium 136 Potassium 3.5 Chloride 102 Carbon Dioxide 27 Anion Gap 7 BUN 6 Creatinine 0.64 L Est GFR ( Amer) 160.2 Est GFR (Non-Af Amer) 132.4 BUN/Creatinine Ratio 9.4 Glucose 121 H Calcium 9.3 Intake & Output 07/28/18 07/29/18 07/29/18 22:59 06:59 14:59 Intake Total 480 480 Output Total 2690 975 Balance -2210 -495 Intake: Oral 480 480 Output: BI #1 90 75 Urine 2600 900 Other: Estimated Void Medium # Voids 2 Physical exam: Abd- mildly distended, soft, tender around lower abdominal incision. S/S drainage in BI. Some small bruising below umbilicus. A/P: 48 M POD 3 from lap assisted sigmoidectomy, appendectomy for sigmoid phlegmon, doing well. - Advance to full liquid diet, possible soft later today if patient has more flatus. - Asked nursing staff to make sure to record quantity of any more liquid-bloody BM. Not unexpected for first BM after surgery with anastomosis. Hct stable and vitals stable. Will check CBC tomorrow. - UOP excellent. Will hep lock IV. - DC BRIDGE CONTRACTOR. Continue toradol around the clock, percocet and morphine PRN for pain control - Continue HSQ - Encouraged patient to continue being OOB and ambulating and using IS
[2018-07-29] MEDS: amLODIPine TAB* 5 MG PO SCH (08:37)
[2018-07-29] MEDS: Heparin VIAL(*) 5000 UNITS/ML VIAL (FIVE THOUSAND) SUBCUT SCH ×2 (08:39→23:00)
--- NOTE | 2018-07-29 17:22 | PN ---
Subjective Date of Service: 07/29/18 Interval History: Reports he feels improved today. Reports he has been passing flatus this afternoon and had a second liquid bm this afternoon. Reports mild abd cramping. Denies cp, palpitations, sob, nausea, vomiting, diarrhea, fever, chills Objective Active Medications: Acetaminophen (Tylenol Adult Liq*) 650 mg PO Q4H PRN PRN Reason: Pain Or Temperature >101 F Last Admin: 07/29/18 05:59 Dose: 650 mg Hydrocodone Bitart/Acetaminophen ([place] 5-325 Tab*) 1 tab PO Q4H PRN PRN Reason: PAIN Last Admin: 07/29/18 08:44 Dose: 1 tab Hydrocodone Bitart/Acetaminophen ([place] 5-325 Tab*) 2 tab PO Q4H PRN PRN Reason: PAIN-MORE Amlodipine Besylate (Norvasc Tab*) 10 mg PO DAILY [facility] Last Admin: 07/29/18 08:37 Dose: 10 mg Heparin Sodium (Porcine) (Heparin Vial(*)) 5,000 units SUBCUT Q12HR [facility] Last Admin: 07/29/18 08:39 Dose: 5,000 units Metoprolol Tartrate (Lopressor Tab*) 25 mg PO BID [facility] Last Admin: 07/29/18 08:37 Dose: 25 mg Morphine Sulfate (Morphine Inj (Syringe))*) 2 mg IV Q4H PRN PRN Reason: PAIN - MILD Nicotine (Nicotine Inhaler*) 10 mg INH Q2H PRN PRN Reason: CRAVINGS Last Admin: 07/27/18 15:59 Dose: 10 mg Nicotine Polacrilex (Nicotine Gum*) 2 mg PO Q2H PRN PRN Reason: CRAVINGS Last Admin: 07/29/18 08:48 Dose: 2 mg Ondansetron HCl (Zofran Inj*) 4 mg IV Q4H PRN PRN Reason: NAUSEA/VOMITING Last Admin: 07/29/18 04:19 Dose: 4 mg Pharmacy Profile Note (Nicotine Patch Removal Note*) 1 note PATCH OFF 2100 [facility] Last Admin: 07/28/18 21:01 Dose: Not Given Vital Signs - 8 hr 07/29/18 07/29/18 12:22 15:19 Temperature 97.9 F 98.2 F Pulse Rate 68 83 Respiratory 14 15 Rate Blood Pressure 151/89 159/94 (mmHg) O2 Sat by Pulse 95 97 Oximetry Oxygen Devices in Use Now: None Appearance: Comfortable, NAD Eyes: No Scleral Icterus Ears/Nose/Mouth/Throat: Clear Oropharnyx, Mucous Membranes Moist Neck: NL Appearance and Movements; NL JVP Respiratory: Symmetrical Chest Expansion and Respiratory Effort, Clear to Auscultation Cardiovascular: NL Sounds; No Murmurs; No JVD, RRR, No Edema Abdominal: NL Sounds; No Tenderness; No Distention, - - Incision benign. BI draining small amount of SS drainage and dressing intact Lymphatic: No Cervical Adenopathy Extremities: No Clubbing, Cyanosis Skin: No Rash or Ulcers Neurological: Alert and Oriented x 3 Nutrition: Taking PO's Result Diagrams: 07/29/18 05:22 07/29/18 05:22 Additional Lab and Data: Laboratory Results - last 24 hr 07/29/18 07/29/18 05:22 05:22 WBC 7.5 RBC 4.78 Hgb 14.5 Hct 43 MCV 91 MCH 30 MCHC 34 RDW 14 Plt Count 176 MPV 9.4 Neut % (Auto) 73.0 Lymph % (Auto) 15.6 [place] % (Auto) 8.8 Eos % (Auto) 2.1 Baso % (Auto) 0.5 Absolute Neuts (auto) 5.5 Absolute Lymphs (auto) 1.2 Absolute Monos (auto) 0.7 Absolute Eos (auto) 0.2 Absolute Basos (auto) 0 Absolute Nucleated RBC 0 Nucleated RBC % 0 Sodium 136 Potassium 3.5 Chloride 102 Carbon Dioxide 27 Anion Gap 7 BUN 6 Creatinine 0.64 L Est GFR ( Amer) 160.2 Est GFR (Non-Af Amer) 132.4 BUN/Creatinine Ratio 9.4 Glucose 121 H Calcium 9.3 Microbiology and Other Data: . Assess/Plan/Problems-Billing Assessment: Mr. Milton is a 48 yo male with a PMH of previous intrabdominal abscess in April 2018 of unclear etiology who was admitted on 07/26/18 due to finding outpatient of significant stricture via EGD with plan for diagnostic laparoscopy with finding of sigmoid stricture and phlegmon now s/p lysis of adhesions, sigmoidectomy and appendectomy. - Patient Problems (1) Intra-abdominal adhesions Comment: - POD # 3, finding of significant adhesions and large sigmoid phlegmon s/p lysis of adhesions, sigmoidectomy and appendectomy with Dr. Clarke - Had intra-abdominal abscess in this location in Apr 2018, no evidence of persistent abscess or infection - Advanced to full liquids per surg and tolerated well. - SPECIAL EDUCATION PARAPROFESSIONAL D/C'd by surg (2) Hypertension Comment: - SBP 140-160s - Amlodipine started on 07/28 and increased 07/29 - Cont to monitor (3) Nicotine dependence Comment: - No withdrawal symptoms, nicotine replacement available - Smoking cessation counseling offered (4) DVT prophylaxis Comment: - Heparin SQ (5) Full code status Comment: Status and Disposition: Inpatient with disposition per surgery. Attending: Gerard Hamlin
[2018-07-29] MEDS ORDERED: Lactated Ringers 1000 ML Bag* 1,000 ML IV ONE (18:07)
[2018-07-29] MEDS: Nicotine Patch Removal NOTE PATCH OFF SCH (23:11)
[2018-07-30 06:07] LABS: ABS Basophils 0 10^3/ul (0-0.2); ABS Eosinophils 0.1 10^3/ul (0-0.6); ABS Lymphocytes 1.5 10^3/ul (1.0-4.8); ABS Monocytes 0.7 10^3/ul (0-0.8); ABS Neutrophils 4.7 10^3/ul (1.5-7.7); ABS Nucleated RBC 0 10^3/ul; Eosinophil % 1.6 %; Hematocrit 44 % (36-46); Hemoglobin 14.7 g/dL (14.0-18.0); Lymphocyte % 21.7 %; Mean Corpuscular HGB Conc 34 g/dL (31-36); Mean Corpuscular Hemoglobin 30 pg (27-31); Mean Corpuscular Volume 90 fL (80-94); Mean Platelet Volume 9.2 fL (7.4-10.4); Nucleated Red Blood Cells % 0; Platelet Count 210 10^3/uL (150-450); Red Blood Count 4.85 10^6 /uL (4.18-5.48); Red Cell Distribution Width 14 % (10.5-15); White Blood Count 7.1 10^3/uL (3.5-10.8)
[2018-07-30] MEDS: HYDROcodone/ACETAMIN 5-325 MG* 1 TAB PO PRN ×4 (06:29→22:27)
[2018-07-30] MEDS: amLODIPine TAB* 5 MG PO SCH (08:56)
[2018-07-30] MEDS: Heparin VIAL(*) 5000 UNITS/ML VIAL (FIVE THOUSAND) SUBCUT SCH (08:56)
[2018-07-30] MEDS: Simethicone TAB* 80 MG TAB.CHEW PO PRN ×2 (09:43→22:30)
--- NOTE | 2018-07-30 10:06 | PN ---
Progress Note - Progress Note Date of Service: 07/30/18 Note: S: POD #4. Seen this a.m. w/ Dr. Clarke. Occ nausea, though seems to be improving. Passing flatus and some loose stool. Pain is mostly "gas". O: Vital Signs - 8 hr 07/30/18 07/30/18 07/30/18 04:20 06:29 07:30 Temperature 99.1 F Pulse Rate 84 Respiratory 16 16 16 Rate Blood Pressure 156/94 (mmHg) O2 Sat by Pulse 95 94 Oximetry 07/30/18 07/30/18 07:32 08:57 Temperature 98.1 F Pulse Rate 79 Respiratory 14 16 Rate Blood Pressure 156/89 (mmHg) O2 Sat by Pulse 94 Oximetry Intake and Output Last 24 Hours 07/28/18 07/29/18 07/30/18 07/31/18 06:59 06:59 06:59 06:59 Intake Total 2070 3683 920 Output Total 2345 5355 1830 [facility] -345 -9801 -844 Intake: IV Fluids 990 983 LR 990 983 Oral 1080 2700 920 Output: BI #1 70 205 20 Urine 1675 5150 1700 [place] 600 Liquid Stool 110 Other: Estimated Void Medium Medium Medium Date of Last Bowel 07/30/18 Movement # Bowel Movements 0 1 Estimated Stool Amount Medium # Voids 1 2 1 1 Abd: (per Dr. Clarke) mildly distended, tympanitic; soft; not significantly tender ; BI w/ serosang drainage; drain stripped A: s/p lap assist sigmoid colectomy w/ appendectomy, improving P: will try to adv diet again today; hopefully home in 1-2 d
--- NOTE | 2018-07-30 11:22 | PN ---
Progress Note - Progress Note Date of Service: 07/30/18 Note: Surgery Progress Note I saw patient earlier this morning on rounds with Hadley Lott. He is POD 4 from lap assisted sigmoidectomy and appendectomy and is doing well. Has flatus, some BM. Still complains about abdominal cramping and gas pain. No nausea or emesis. Has tolerated CLD yesterday but didn't have much appetite for full liquids. Restarting fulls today and can advance to soft later tonight. Pain well controlled on oral pain medications and toradol around the clock. Simethicone as needed. DC'ed labs. Appreciate hospitalist consultation for new HTN. On amlodipine. Patient will need to follow with PCP after surgery.
--- NOTE | 2018-07-30 12:25 | PN ---
Progress Note - Progress Note Date of Service: 07/30/18 Note: S: POD #4 s/p lap assisted sigmoidectomy w/ appendectomy. Patient notes 7/10 abdominal pain, mostly around lower midline incision. Patient had a small watery bowel movement last night with black and dark brown stool and continuing to pass flatus. Tolerating clear liquids well. Denies N/V. Patient has not yet ambulated today, but has been ambulating a coupe times/day. Denies much use of spirometer. O: Vital Signs - 12 hr Temp Pulse Resp BP Pulse Ox 07/30/18 10:40 20 07/30/18 08:57 16 07/30/18 07:32 98.1 F 79 14 156/89 94 07/30/18 07:30 16 94 07/30/18 06:29 16 07/30/18 04:20 99.1 F 84 16 156/94 95 Intake and Output Last 24 Hours 07/28/18 07/29/18 07/30/18 07/31/18 06:59 06:59 06:59 06:59 Intake Total 2070 3683 920 690 Output Total 2345 5355 1830 350 Balance -275 -1672 -910 340 Intake: IV Fluids 990 983 LR 990 983 Oral 1080 2700 920 690 Output: BI #1 70 205 20 Urine 1675 5150 1700 350 [place] 600 Liquid Stool 110 Other: Estimated Void Medium Medium Medium Date of Last Bowel 07/30/18 Movement # Bowel Movements 0 1 Estimated Stool Amount Medium # Voids 1 2 1 1 PE: General: Patient is sitting upright in chair in NAD. Alert and oriented x 3. Lungs: CTA bilaterally. Heart: RRR. No murmur noted. Normal s1/s2. Abdomen: Soft, slightly distended. Bowel sounds are hyper-active. Mild incisional tenderness. Ecchymosis notes around midline vertical incision. Incisions are healing well without erythema or active drainage. BI tube with serosanguineous fluid. A: s/p lap assisted sigmoidectomy w/ appendectomy P: Patient is doing well despite abdominal pain, for which patient is receiving PO [place] and tylenol as needed. Incisions are healing well without signs of infection. Patient is tolerating clear liquid and may advance diet to full liquid and possibly soft food later today. Continue current medications and BI drain. Encouraged ambulation and use of spirometer.
--- NOTE | 2018-07-30 18:32 | PN ---
Subjective Date of Service: 07/30/18 Interval History: Patient reports he is feeling well. Just came back from walking outside with family, therefore, having mild abd pain which patient reports is normal for him after walking since surg. Reports flatus. Denies cp, palpitations, sob, dizziness, headache, fever, chills. Objective Active Medications: Acetaminophen (Tylenol Adult Liq*) 650 mg PO Q4H PRN PRN Reason: Pain Or Temperature >101 F Last Admin: 07/29/18 05:59 Dose: 650 mg Hydrocodone Bitart/Acetaminophen ([place] 5-325 Tab*) 1 tab PO Q4H PRN PRN Reason: PAIN Last Admin: 07/29/18 08:44 Dose: 1 tab Hydrocodone Bitart/Acetaminophen ([place] 5-325 Tab*) 2 tab PO Q4H PRN PRN Reason: PAIN-MORE Last Admin: 07/30/18 16:03 Dose: 2 tab Amlodipine Besylate (Norvasc Tab*) 10 mg PO DAILY [facility] Last Admin: 07/30/18 08:56 Dose: 10 mg Lactated Ringer's (Lactated Ringers 1000 Ml Bag*) 1,000 mls @ 40 mls/hr IV ONCE ONE Stop: 07/30/18 19:06 Last Admin: 07/29/18 18:16 Dose: 40 mls/hr Morphine Sulfate (Morphine Inj (Syringe))*) 2 mg IV Q4H PRN PRN Reason: PAIN - MILD Nicotine (Nicotine Inhaler*) 10 mg INH Q2H PRN PRN Reason: CRAVINGS Last Admin: 07/27/18 15:59 Dose: 10 mg Nicotine Polacrilex (Nicotine Gum*) 2 mg PO Q2H PRN PRN Reason: CRAVINGS Last Admin: 07/29/18 08:48 Dose: 2 mg Ondansetron HCl (Zofran Inj*) 4 mg IV Q4H PRN PRN Reason: NAUSEA/VOMITING Last Admin: 07/29/18 17:56 Dose: 4 mg Pharmacy Profile Note (Nicotine Patch Removal Note*) 1 note PATCH OFF 2099 [facility] Last Admin: 07/29/18 23:11 Dose: Not Given Simethicone (Mylicon Tab*) 80 mg PO Q6H PRN PRN Reason: INDIGESTION Last Admin: 07/30/18 09:43 Dose: 80 mg Vital Signs - 8 hr 07/30/18 07/30/18 07/30/18 10:40 11:30 12:33 Temperature 98.2 F Pulse Rate 85 Respiratory 20 17 16 Rate Blood Pressure 126/87 (mmHg) O2 Sat by Pulse 96 Oximetry 07/30/18 07/30/18 07/30/18 15:52 16:00 16:03 Temperature 97.9 F Pulse Rate 90 Respiratory 16 16 Rate Blood Pressure 149/91 (mmHg) O2 Sat by Pulse 98 98 Oximetry 07/30/18 17:47 Temperature Pulse Rate Respiratory 18 Rate Blood Pressure (mmHg) O2 Sat by Pulse Oximetry Oxygen Devices in Use Now: None Appearance: Comfortable, NAD Eyes: No Scleral Icterus Ears/Nose/Mouth/Throat: Clear Oropharnyx, Mucous Membranes Moist Neck: NL Appearance and Movements; NL JVP Respiratory: Symmetrical Chest Expansion and Respiratory Effort, Clear to Auscultation Cardiovascular: NL Sounds; No Murmurs; No JVD, RRR, No Edema Abdominal: NL Sounds; No Tenderness; No Distention, - - [place] well approx and benign. BI drain in place and draining scant SS fluid. Lymphatic: No Cervical Adenopathy Extremities: No Edema Skin: No Rash or Ulcers Neurological: Alert and Oriented x 3 Nutrition: Taking PO's Result Diagrams: 07/30/18 05:44 07/29/18 05:22 Additional Lab and Data: Laboratory Results - last 24 hr 07/30/18 05:44 WBC 7.1 RBC 4.85 Hgb 14.7 Hct 44 MCV 90 MCH 30 MCHC 34 RDW 14 Plt Count 210 MPV 9.2 Neut % (Auto) 66.7 Lymph % (Auto) 21.7 [place] % (Auto) 9.8 Eos % (Auto) 1.6 Baso % (Auto) 0.2 Absolute Neuts (auto) 4.7 Absolute Lymphs (auto) 1.5 Absolute Monos (auto) 0.7 Absolute Eos (auto) 0.1 Absolute Basos (auto) 0 Absolute Nucleated RBC 0 Nucleated RBC % 0 Microbiology and Other Data: . Assess/Plan/Problems-Billing Assessment: Mr. Milton is a 48 yo male with a PMH of previous intrabdominal abscess in April 2018 of unclear etiology who was admitted on 07/26/18 due to finding outpatient of significant stricture via EGD with plan for diagnostic laparoscopy with finding of sigmoid stricture and phlegmon now s/p lysis of adhesions, sigmoidectomy and appendectomy. - Patient Problems (1) Intra-abdominal adhesions Comment: - POD # 4, finding of significant adhesions and large sigmoid phlegmon s/p lysis of adhesions, sigmoidectomy and appendectomy with Dr. Clarke - Had intra-abdominal abscess in this location in Apr 2018, no evidence of persistent abscess or infection - Diet per surg - Pain control per surg (2) Hypertension Comment: - SBP 140-160s - Amlodipine started on 07/28 and increased 07/29 - Discussed continuing BP medication after discharge and following up with PCP. Patient agrees to follow up with PCP but admits he will probably stop taking the medication as he does not like taking medication. Discussed risk of untreated htn and patient stated understanding (3) Nicotine dependence Comment: - No withdrawal symptoms, nicotine replacement available - Smoking cessation counseling offered (4) DVT prophylaxis Comment: - Ambulation (5) Full code status Comment: Status and Disposition: Inpatient with disposition per surgery. Attending: Gerard Hamlin
[2018-07-30] MEDS: Nicotine Patch Removal NOTE PATCH OFF SCH (22:37)
[2018-07-31] MEDS: HYDROcodone/ACETAMIN 5-325 MG* 1 TAB PO PRN (09:20)
[2018-07-31] MEDS: amLODIPine TAB* 5 MG PO SCH (09:20)
--- NOTE | 2018-07-31 09:32 | PN ---
Progress Note - Progress Note Date of Service: 07/31/18 Note: S: POD #5 lap assisted sigmoidectomy with appendectomy. Patient states he is doing well aside from 6/10 crampy, lower abdominal pain. He is tolerating soft foods well last night and this morning. He continues to pass flatus, but no significant bowel movement. Denies N/V. He is planning on ambulating after breakfast and pain medications. O: Vital Signs - 12 hr Temp Pulse Resp BP Pulse Ox 07/31/18 07:23 98.4 F 87 15 144/96 95 07/31/18 04:39 93 07/31/18 03:49 98.2 F 65 16 141/83 96 07/31/18 01:27 14 07/31/18 00:01 98.0 F 72 14 143/91 94 07/30/18 22:27 16 Intake and Output Last 24 Hours 07/29/18 07/30/18 07/31/18 08/01/18 06:59 06:59 06:59 06:59 Intake Total 3683 920 3793 480 Output Total 5355 1830 1350 Balance -1672 -910 2443 480 Intake: IV Fluids 983 733 LR 983 733 Oral 2700 920 3060 480 Output: BI #1 205 20 150 Urine 5150 1700 1200 Liquid Stool 110 Other: Estimated Void Medium Medium Medium Date of Last Bowel 07/30/18 Movement # Bowel Movements 1 0 Estimated Stool Amount Medium # Voids 2 1 1 PE: General: Patient is sitting upright in chair in NAD. Alert and oriented x 3. Lungs: CTA bilaterally Heart: RRR. No murmurs noted. Normal s1/s2 Abdomen: Soft, slight distention. Bowels sounds hyper-active. Moderate tenderness to lower abdomen about midline incision. Midline incision with sacha and laparoscopic incisions are healing well without erythema or active discharge, surrounding ecchymosis noted. Serosanguinous fluid in BI tube. A: s/p lap assisted sigmoidectomy with appendectomy. P: Patient is doing well aside from moderate abdominal pain, continue pain control with [place] and tylenol prn. BI tubing was stripped and will continue due to moderate output. Patient is tolerating PO diet, and IV has been discontinued. Continuing to pass flatus. Encouraged ambulation and use of spirometer. Consider for discharge possibly later today or tomorrow.
--- NOTE | 2018-07-31 12:06 | PN ---
Progress Note - Progress Note Date of Service: 07/31/18 Note: BI drain removed with PA student, Milvia Solitario, without incident. DSD placed. Discharge instructions reviewed. d/c'd to home today in good condition.
--- NOTE | 2018-07-31 13:59 | DS ---
DISCHARGE SUMMARY: DATE OF ADMISSION: 07/26/18 DATE OF DISCHARGE: 07/31/18 SERVICE: General Surgery. ATTENDING SURGEON: Maricel Clarke MD ADMISSION DIAGNOSIS: History of intraabdominal abscess with likely diverticular stricture. DISCHARGE DIAGNOSES: Diverticular stricture, status post lap-assisted sigmoidectomy and appendectomy. HOSPITAL COURSE: Mr. Milton is a healthy 48-year-old male who is a smoker, who had presented in April 2018 with an intraabdominal abscess of unclear origin. His workup consisted of a colonoscopy approximately 2 months after his recovery, which was complicated by the inability to pass even a small pediatric scope due to the lumen of the colon. It is presumed that he had a diverticular stricture, although carcinoma is also not ruled out given that the colonoscopy was incomplete. He had completely resolved from his intraabdominal infection and he therefore consented for a diagnostic laparoscopy and sigmoidectomy as an elective procedure on 07/26/18. He underwent this procedure and the surgery was uneventful. He was noted to have very dense adhesions in the pelvis, very thickened and phlegmonous sigmoid colon to the anterior abdominal wall as well as to the right pelvic sidewall with involvement of the cecum and terminal ileum and the appendix. After the surgery was performed, the patient had an uneventful hospital course. He was hypertensive after surgery so the hospitalist service was consulted and started him on Amlodipine. His Gallardo catheter was removed. He was able to urinate without difficulty and on the day of discharge on postoperative day 5, he was tolerating a soft diet. He was not having any nausea or vomiting. He was ambulating independently. He was having flatus and some small bowel movements and he had minimal abdominal pain that was well controlled on oral pain medications. He was therefore determined to be an appropriate candidate for discharge. PHYSICAL EXAMINATION: Temperature is 98.4, pulse is 87, respiratory rate is 15 , O2 sat is 95% on room air, blood pressure is 134/96. General: He is a well- appearing man, lying comfortably in bed, in good spirits, in no apparent distress. Abdomen is soft, minimally distended, nontender. Incisions are clean , dry and intact. [place] in the lower abdominal incision are intact. Laparoscopic incisions are intact and his BI drain has minimal serous drainage. LABORATORY VALUES: On 07/30/18, white blood cell count is 7.1, hemoglobin is 14.7, hematocrit is 44, platelets are 210. Sodium is 136, potassium is 3.5, chloride is 102, BUN 6, creatinine is 0.64, glucose is 121. DISCHARGE INSTRUCTIONS: The patient was instructed to follow up with his primary care physician for his hypertension and for adjustment of his medications. He was also told to return to the emergency room for fevers, chills, increased abdominal pain, nausea, vomiting, or purulent drainage from his wound. He will follow up with me in the office next week to remove his sacha. He is also told to follow up with Gastroenterology, Dr. Kwon approximately 2 months after surgery for a repeat colonoscopy. DISCHARGE MEDICATIONS: 1. [place] 5/325 p.o. q.6 hours p.r.n. for severe pain. 2. Amlodipine 10 mg p.o. daily. DISPOSITION: Home. CONDITION: Good. [id number]/CPS #: [id number] MTDD
[2018-07-31 14:01] VITALS: BP 117/84
[2018-07-31] MEDS: Acetaminophen ADULT LIQ* 650 MG/20.3 ML UDC PO PRN (14:48)
--- NOTE | 2018-07-31 15:33 | PN ---
Subjective Date of Service: 07/31/18 Interval History: Sitting in chair eating breakfast. Patient tolerating soft diet. Reports he is realizing he needs to eat slowly and smaller bites. Reports intermittent abd pain which is aggrivating by movement. Reports pain is well controlled with current pain regime. Denies cp, palpitations, nausea, dizziness, headache, tinnitus, nausea, vomiting. Objective Active Medications: Acetaminophen (Tylenol Adult Liq*) 650 mg PO Q4H PRN PRN Reason: Pain Or Temperature >101 F Last Admin: 07/31/18 14:48 Dose: 650 mg Hydrocodone Bitart/Acetaminophen ([place] 5-325 Tab*) 1 tab PO Q4H PRN PRN Reason: PAIN Last Admin: 07/29/18 08:44 Dose: 1 tab Hydrocodone Bitart/Acetaminophen ([place] 5-325 Tab*) 2 tab PO Q4H PRN PRN Reason: PAIN-MORE Last Admin: 07/31/18 09:20 Dose: 2 tab Amlodipine Besylate (Norvasc Tab*) 10 mg PO DAILY [facility] Last Admin: 07/31/18 09:20 Dose: 10 mg Morphine Sulfate (Morphine Inj (Syringe))*) 2 mg IV Q4H PRN PRN Reason: PAIN - MILD Nicotine (Nicotine Inhaler*) 10 mg INH Q2H PRN PRN Reason: CRAVINGS Last Admin: 07/27/18 15:59 Dose: 10 mg Nicotine Polacrilex (Nicotine Gum*) 2 mg PO Q2H PRN PRN Reason: CRAVINGS Last Admin: 07/29/18 08:48 Dose: 2 mg Ondansetron HCl (Zofran Inj*) 4 mg IV Q4H PRN PRN Reason: NAUSEA/VOMITING Last Admin: 07/29/18 17:56 Dose: 4 mg Pharmacy Profile Note (Nicotine Patch Removal Note*) 1 note PATCH OFF [address] [facility] Last Admin: 07/30/18 22:37 Dose: Not Given Simethicone (Mylicon Tab*) 80 mg PO Q6H PRN PRN Reason: INDIGESTION Last Admin: 07/30/18 22:30 Dose: 80 mg Vital Signs - 8 hr 07/31/18 07/31/18 07/31/18 09:20 11:12 12:20 Temperature 98.8 F Pulse Rate 82 84 Respiratory 16 15 16 Rate Blood Pressure 171/92 117/84 (mmHg) O2 Sat by Pulse 98 99 Oximetry 07/31/18 13:42 Temperature Pulse Rate Respiratory 16 Rate Blood Pressure (mmHg) O2 Sat by Pulse Oximetry Oxygen Devices in Use Now: None Appearance: Comfortable, NAD Eyes: No Scleral Icterus Ears/Nose/Mouth/Throat: Clear Oropharnyx, Mucous Membranes Moist Neck: NL Appearance and Movements; NL JVP Respiratory: Symmetrical Chest Expansion and Respiratory Effort, Clear to Auscultation Cardiovascular: NL Sounds; No Murmurs; No JVD, RRR, No Edema Abdominal: NL Sounds; No Tenderness; No Distention, - - [place] well approx and benign. BI drain to right quad Lymphatic: No Cervical Adenopathy Extremities: No Clubbing, Cyanosis Skin: No Rash or Ulcers Neurological: Alert and Oriented x 3 Nutrition: Taking PO's Result Diagrams: 07/30/18 05:44 07/29/18 05:22 Additional Lab and Data: . Microbiology and Other Data: . Assess/Plan/Problems-Billing Assessment: Mr. Milton is a 48 yo male with a PMH of previous intrabdominal abscess in April 2018 of unclear etiology who was admitted on 07/26/18 due to finding outpatient of significant stricture via EGD with plan for diagnostic laparoscopy with finding of sigmoid stricture and phlegmon now s/p lysis of adhesions, sigmoidectomy and appendectomy. - Patient Problems (1) Intra-abdominal adhesions Comment: - POD # 5, finding of significant adhesions and large sigmoid phlegmon s/p lysis of adhesions, sigmoidectomy and appendectomy with Dr. Clarke - Had intra-abdominal abscess in this location in Apr 2018, no evidence of persistent abscess or infection - Diet per surg - Pain control per surg (2) Hypertension Comment: - SBP 140-160s - Amlodipine started on 07/28 and increased 07/29 - Discussed continuing BP medication after discharge and following up with PCP. Patient agrees to follow up with PCP but admits he will probably stop taking the medication as he does not like taking medication. Discussed risk of untreated htn and patient stated understanding (3) Nicotine dependence Comment: - No withdrawal symptoms, nicotine replacement available - Smoking cessation counseling offered (4) DVT prophylaxis Comment: - Ambulation (5) Full code status Comment: Status and Disposition: Inpatient with disposition per surgery. Attending: Gerard Hamlin
== END 2018-07-31 15:50 | disposition home or self-care (01) | DRG 221 ==
LOC: AA 07:08 → SSU 13:28
PROVIDERS: ADMIT Surgery; ATTEND Surgery
PROC: 0DTJ4ZZ Resection of Appendix, Percutaneous Endoscopic Approach (ICD-10-PCS; 2018-07-26)
PROC: 0DNN4ZZ Release Sigmoid Colon, Percutaneous Endoscopic Approach (ICD-10-PCS; 2018-07-26)
PROC: 0DTN0ZZ Resection of Sigmoid Colon, Open Approach (ICD-10-PCS; principal; 2018-07-26 08:30)
DX: K56.50 Intestinal adhesions [bands], unspecified as to partial versus complete obstruction (principal); K63.0 Abscess of intestine; F17.210 Nicotine dependence, cigarettes, uncomplicated; I10 Essential (primary) hypertension; Z72.89 Other problems related to lifestyle; Z80.0 Family history of malignant neoplasm of digestive organs; Z53.31 Laparoscopic surgical procedure converted to open procedure
CPT/HCPCS: 36415; 80048; 80053; 81003; 81015; 82565; 84520; 85025; 85610; 85730; 88304; 88305; 88307; 93005; A9270-GY; J0360; J1100; J1170; J1335; J1644; J1885; J2250; J2405; J2704; J3010; J3490